=== PATIENT | female | born 1935 | race Caucasian/White ===

== ENCOUNTER 2018-04-20 11:43 | Inpatient (IN) ==
--- NOTE | 2018-04-20 12:05 | Emergency Department Note ---
SOB HPI - General Chief Complaint: Shortness of Breath/Dyspnea Stated Complaint: hypoxic Time Seen by Provider: 04/20/18 11:48 Source: patient, other Mode of arrival: wheelchair Limitations: physical limitation - History of Present Illness Patient is a recent new resident at [facility] after a fall with apparent fractures to her wrist and femur. Her left wrist was recently repaired. She has had increasing O2 requirements up to 6 L and heart rate going up to 120. Th erefore was sent to this emergency room. REVIEW OF SYSTEMS: Denies headache, chest pain, stomach pain. Unsure of why she fell days ago. No recent complaints of fevers, chest pain; has been chronically short of breath but seems to have worsened some. Has been using her inhalers fairly regularly as well. - Related Data Home Medications Medication Instructions Recorded Confirmed Acetaminophen [Tylenol Arthritis] 650 mg PO Q4H 04/20/18 04/20/18 Aspirin [Adult Aspirin] 81 mg PO DAILY 04/20/18 04/20/18 Beclomethasone Dipropionate [Qvar 1 puff INH BID 04/20/18 04/20/18 40] Bisacodyl [Dulcolax] 10 mg LA DAILYP PRN 04/20/18 04/20/18 Cyanocobalamin (Vitamin B-12) 5,000 mcg PO DAILY 04/20/18 04/20/18 [Vitamin B12] Cyanocobalamin/Folic Acid [Vitamin 1 each PO DAILY 04/20/18 04/20/18 [id number] Acid Tablet] Fish Oil 1,000 mg PO DAILY 04/20/18 04/20/18 Fish Oil/Borage/Flax/Om3,6,9#1 400 mg PO DAILY 04/20/18 04/20/18 [Triple [place] Complex 3-6-9] Flaxseed Oil [Flax Seed Oil] 1,000 mg PO DAILY 04/20/18 04/20/18 Furosemide [Lasix] 10 mg PO DAILY 04/20/18 04/20/18 Hydrocodone/APAP 7.5/325Mg [[place] 1 tab PO Q4HP PRN 04/20/18 04/20/18 7.5-325Mg] Ipratropium/Albuterol [Duoneb] 3 ml NEB TID 04/20/18 04/20/18 Levalbuterol Tartrate [Xopenex Hfa] 15 gm IH Q4HP PRN 04/20/18 04/20/18 Magnesium Hydroxide [Milk of 30 ml PO DAILYP PRN 04/20/18 04/20/18 Magnesia] Multivit-Min/Iron/Folic/Muy059 1 each PO DAILY 04/20/18 04/20/18 [Hair, Skin and Nails Tablet] Na Phos,M-B/Na Phos,Di-Ba [Fleets 1 dose LA DAILYP PRN 04/20/18 04/20/18 Adult] Spironolactone [Aldactone] 25 mg PO DAILY 04/20/18 04/20/18 Ubidecarenone [Coenzyme Q10] 100 mg PO DAILY 04/20/18 04/20/18 Allergies Allergy/AdvReac Type Severity Reaction Status Date / Time Amfxlob-Uxi-Fxj Reductase AdvReac Severe Pt does Verified 04/20/18 11:51 Inhibitor not recall. Iron sucrose Allergy Severe Patient Uncoded 03/04/18 14:10 states reaction caused syncope, loss of bladder. Past Medical History - Past Medical History PMF Narrative: Medical History (Last Reviewed 03/04/18 @ 14:48 by Avel Portillo MD) Hypoxemia (Chronic) Cyst of thyroid (Chronic) Cervical disc herniation (Chronic) Shortness of Breath (Chronic) Malocclusion of teeth (Chronic) Neck pain (Chronic) Memory loss (Chronic) CKD (chronic kidney disease), stage III (Chronic) Angiodysplasia of duodenum (Chronic) Nasal septal erosion (Chronic) Hyperkalemia (Chronic) COPD exacerbation (Resolved) Right lower lobe pneumonia (Chronic) Venous stasis dermatitis of both lower extremities (Chronic) Chronic kidney disease, stage II (mild) (Chronic) Noncompliance with medication regimen (Chronic) Peripheral Vascular Disease (Chronic) History of colorectal malignant neoplasm (Chronic) Gastritis and duodenitis (Chronic) Altered mental status (Resolved) Fundic gland polyps of stomach, benign (Resolved) Rectal mass (Chronic) History of ovarian cancer (Chronic) History of malignant neoplasm of colon (Chronic) Abdominal pain (Chronic) History of hysterectomy (Resolved) Vitamin B12 deficiency (Chronic) 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) Tachycardia (Chronic 01/25/13) Sepsis (Resolved 01/13/13) Scoliosis (Chronic) Respiratory failure (Resolved) Pneumonia, organism unspecified (Resolved 01/13/13) Ovarian cancer (Inactive) Osteoporosis (Chronic) Chronic sinusitis (Chronic 01/20/13) Lung mass (Inactive) Atrophy of calf muscles on left (Chronic 03/21/14) Hypoxia (Chronic) Hypertension, essential (Chronic) Hyperlipidemia (Chronic 09/10/12) Herpes zoster (Resolved) Abrasion of ankle (Resolved 11/16/13) GERD (gastroesophageal reflux disease) (Chronic) Type 2 diabetes mellitus (Chronic) Depressive disorder (Chronic) Colon cancer (Inactive) Chronic pain (Chronic) Chronic obstructive pulmonary disease (Chronic) Chronic kidney disease, stage II (mild) (Chronic) Chest pain (Chronic) Cheilitis (Resolved) Carotid stenosis (Chronic) Carotid bruit (Chronic) Bronchitis (Chronic 01/20/13) Back pain (Chronic) Atherosclerosis, generalized (Chronic) Anemia, iron deficiency (Chronic) Past Surgical History (Last Reviewed 03/04/18 @ 14:48 by Avel Portillo MD) History of salpingoophorectomy (Resolved) History of esophagogastroduodenoscopy (Resolved) History of colonoscopy (Resolved) History of colon surgery (Resolved) History of cholecystectomy (Resolved) History of cataract surgery (Resolved) History of appendectomy (Resolved) Status post surgical manipulation of ankle joint (Resolved) Family History (Last Reviewed 03/04/18 @ 14:48 by Avel Portillo MD) Brother Chronic obstructive pulmonary disease Type 2 diabetes mellitus Cardiac disease Mother Type 2 diabetes mellitus Family history of malignant neoplasm Osteoporosis Sister Family history of malignant neoplasm Disease of lung Father Cardiac disease Pneumocephalus Unknown Acute myocardial infarction Medical history: Reports: COPD, DM, GERD, hyperlipidemia, hypertension, osteoporosis, renal disease, other Surgical history ED: Reports: appendectomy, cataract, cholecystectomy, hysterectomy - Social History smoking status: Former smoker Physical Exam Limitations: physical limitation General appearance: alert, cachectic (Moderately to mildly), in distress (Some work of breathing and few word dyspnea.) Head: atraumatic, normocephalic, other (Bruising and swelling on the left zygoma) Eye: Present: EOMI Neck: Present: trachea midline. Absent: lymphadenopathy, thyromegaly Respiratory: Present: rales/crackles (Some coarseness and palpable wheezes.), accessory muscle use (Mildly), prolonged expiratory phase (Mildly) Cardiovascular: Present: tachycardia, irregular rhythm. Absent: systolic murmur, diastolic murmur Abdominal: Present: soft. Absent: distention, tenderness, guarding, rebound, rigidity, organomegaly, mass Extremities: Present: other (Multiple ecchymotic areas. Left arm is in a splint with Arnoldo wraps.). Absent: pedal edema, pretibial edema, calf tenderness Neurological: Present: alert, CN II-XII intact Psychiatric: Present: flat affect, serious Skin: Present: dry Course Vital Signs Temperature 101.7 F H 04/20/18 11:44 Pulse Rate 124 H 04/20/18 11:44 Respiratory Rate 28 H 04/20/18 11:44 Blood Pressure 120/57 04/20/18 11:44 Pulse Oximetry (%) 78 L 04/20/18 11:44 Temperature 101.7 F H 04/20/18 14:19 Pulse Rate 127 H 04/20/18 14:19 Respiratory Rate 21 04/20/18 14:19 Blood Pressure 119/66 04/20/18 14:19 Pulse Oximetry (%) 89 L 04/20/18 14:19 Shortness of Breath/Dyspnea - [facility] Narrative Medical decision making narrative: 11:56 AM - acute worsening of shortness of breath and hypoxia with tachycardia and had a temperature on admission of 101.7. Full workup for sepsis and hypoxia. 12:15 PM - patient's EKG demonstrates tachycardia with some mildly flattened T waves compared to previous. Patient initially tried on high flow mask but saturations continued to drop into the 80s. 1 PM approximately - d-dimer was needing to be repeated. In thinking about this a consider going ahead and order the CT angios of the chest has recent surgery certainly puts her at significant risk for DVT. 1:10 PM approximately - radiology points out the patient had a CT of her chest on the at [facility]. I will hold on the CT Angio pending greater respiratory stabilization and consider discussing with hospitalist. 1:15 PM - high flow nasal cannula humidified "THRIVE" encouraged by respiratory. This seems feasible and is ordered. 1:50 PM - spoke with family and patient. She does not want to be intubated for any significant period of time or spend the rest of her life on a respirator. She does not want aggressive measures such as CPR. However would like to have medical interventions. Patient's son seems to confirm this. 2:00 PM - limited benefit with above. Saturations were dropping still into the 86-88% range. We will try BiPAP. 2:04 PM - I spoke with hospitalist who kindly agrees to accept this patient for inpatient additional treatment and interventions. - Lab Data Result diagrams: 04/20/18 12:26 04/20/18 12:26 Lab Results 04/20/18 04/20/18 04/20/18 Range/Units 12:26 12: 12: WBC 23.7 H (4.5-11.0) K/mcL RBC 2.97 L (4.00-5.20) M/mcL Hgb 9.2 L (12.0-15.0) g/dL Hct 27.7 L (36.0-48.0) % MCV 93.3 (80.0-100.0) fL MCH 31.0 (26.0-34.0) pg MCHC 33.3 (31.0-36.0) g/dL RDW 13.2 (11.5-14.5) % Plt Count 546 H (140-440) K/mcL MPV 7.0 L (7.4-10.4) fL Total Counted 100 Seg Neutrophils % 59 (38-78) % Band Neutrophils % 24 H (0-10) % Lymphocytes % 5 L (15-49) % Monocytes % (Manual) 5 (1-12) % Metamyelocytes % 4 H (0-0) % Myelocytes % 3 H (0-0) % WBC Morphology Abnorm A (NORMAL) Vacuolated Neuts 1+ A (NONE SEEN) Toxic Granulation 1+ A (NONE SEEN) Dohle Bodies Few A (NONE SEEN) Platelet Estimate Increased (NORMAL) RBC Morphology Abnorm A (NORMAL) Polychromasia 1+ A (NONE SEEN) Hypochromasia 1+ A (NONE SEEN) D-Dimer TNP VBG Lactic Acid (0.5-2.0) mmol/L Sodium 130 L (133-145) mmol/L Potassium 3.8 (3.3-5.1) mmol/L Chloride 86 L (96-108) mmol/L Carbon Dioxide 31 H (22-30) mmol/L Anion Gap 13.0 (8-16) BUN 23 (8-23) mg/dl Creatinine 1.0 (0.6-1.1) mg/dl GFR Calculation 52 Glucose 187 H (70-105) mg/dL Calcium 8.8 (8.6-10.4) mg/dl Total Bilirubin 0.6 (0.0-1.0) mg/dL AST 28 (0-37) U/l ALT 26 (0-40) U/l Alkaline Phosphatase 114 (39-117) U/L Total Protein 6.3 (5.9-8.4) gm/dL Albumin 2.6 L (3.2-5.2) gm/dL Globulin 3.7 (2.2-3.7) gm/dL Albumin/Globulin Ratio 0.7 L (1.0-2.3) 04/20/18 04/20/18 Range/Units 12:26 13:26 WBC (4.5-11.0) K/mcL RBC (4.00-5.20) M/mcL Hgb (12.0-15.0) g/dL Hct (36.0-48.0) % MCV (80.0-100.0) fL MCH (26.0-34.0) pg MCHC (31.0-36.0) g/dL RDW (11.5-14.5) % Plt Count (140-440) K/mcL MPV (7.4-10.4) fL Total Counted Seg Neutrophils % (38-78) % Band Neutrophils % (0-10) % Lymphocytes % (15-49) % Monocytes % (Manual) (1-12) % Metamyelocytes % (0-0) % Myelocytes % (0-0) % WBC Morphology (NORMAL) Vacuolated Neuts (NONE SEEN) Toxic Granulation (NONE SEEN) Dohle Bodies (NONE SEEN) Platelet Estimate (NORMAL) RBC Morphology (NORMAL) Polychromasia (NONE SEEN) Hypochromasia (NONE SEEN) D-Dimer 3.90 H VBG Lactic Acid 1.2 (0.5-2.0) mmol/L Sodium (133-145) mmol/L Potassium (3.3-5.1) mmol/L Chloride (96-108) mmol/L Carbon Dioxide (22-30) mmol/L Anion Gap (8-16) BUN (8-23) mg/dl Creatinine (0.6-1.1) mg/dl GFR Calculation Glucose (70-105) mg/dL Calcium (8.6-10.4) mg/dl Total Bilirubin (0.0-1.0) mg/dL AST (0-37) U/l ALT (0-40) U/l Alkaline Phosphatase (39-117) U/L Total Protein (5.9-8.4) gm/dL Albumin (3.2-5.2) gm/dL Globulin (2.2-3.7) gm/dL Albumin/Globulin Ratio (1.0-2.3) Disposition Pt seen by JOINER HELPER/PA only: No Clinical Impression: Hypoxia, S/P hip hemiarthroplasty, Pulmonary fibrosis, DNR (do not resuscitate) Respiratory failure with hypoxia Qualifiers: Chronicity: acute on chronic Qualified Code(s): J96.21 - Acute and chronic respiratory failure with hypoxia Facial bones, closed fracture Qualifiers: Encounter type: subsequent encounter Facial bone/location: unspecified site of maxillary bone Laterality: left Fracture healing: with routine healing Qualified Code(s): S02.40DD - Maxillary fracture, left side, subsequent encounter for fracture with routine healing Fracture of forearm, distal, left, closed Qualifiers: Encounter type: subsequent encounter Fracture healing: with routine healing Qualified Code(s): S52.92XD - Unspecified fracture of left forearm, subsequent encounter for closed fracture with routine healing Pneumonia Qualifiers: Pneumonia type: due to unspecified organism Laterality: bilateral Lung location: lower lobe of lung Qualified Code(s): J18.1 - Lobar pneumonia, unspecified organism Disposition: Xfer As Inpt ([facility]) Condition: Fair Referrals: Steven Pineda MD [Primary Care Provider] -
[2018-04-20] MEDS ORDERED: IPRATROPIUM/ALBUTEROL 3 ML AMPUL.NEB NEB ONE (12:39)
--- NOTE | 2018-04-20 12:49 | XRay Report ---
HISTORY: Hypoxia FINDINGS: There is moderate consolidation left lower lobe with milder consolidation in the right lower lobe. Superimposed upon this are small bilateral pleural effusions, left greater than right. The heart is relatively small. There is underlying pulmonary fibrosis with a reticular pattern to the lung parenchyma in both upper lobes. The infiltrates and pleural effusions are new since 02/06/17. IMPRESSION: Bibasilar pneumonia, left worse than right superimposed upon underlying pulmonary fibrosis Small bilateral pleural effusions Interpreted and Authenticated by: Santy Baker 04/20/18
[2018-04-20 13:00] LABS: Mean Cell Volume 93.3 fL (80.0-100.0); Mean Corpuscular HGB Conc 33.3 g/dL (31.0-36.0); Platelet Count 546 K/mcL (140-440); RBC 2.97 M/mcL (4.00-5.20); Red Cell Distribution Width 13.2 % (11.5-14.5)
[2018-04-20] MEDS ORDERED: cefTRIAXone 1 GM VIAL IV ONE (13:08)
[2018-04-20] MEDS ORDERED: AZITHROMYCIN 500 MG in DEXTROSE 5% IN WATER 250 ML IV ONE (13:09)
[2018-04-20 13:25] LABS: ALT/SGPT 26 U/l (0-40); Albumin 2.6 gm/dL (3.2-5.2); Albumin/Globulin Ratio 0.7 (1.0-2.3); Alkaline Phosphatase 114 U/L (39-117); Blood Urea Nitrogen 23 mg/dl (8-23)
[2018-04-20] MEDS ORDERED: 0.9 % SODIUM CHLORIDE 1,000 ML IV ONE (13:39)
[2018-04-20 13:41] LABS: Band Neutrophils % 24 % (0-10); Dohle Bodies FEW (NONE SEEN); Hypochromasia 1+ (NONE SEEN); Lymphocytes % 5 % (15-49); Metamyelocytes % 4 % (0-0); Monocytes % (Manual) 5 % (1-12); Myelocytes % 3 % (0-0); Platelet Estimate INCREASED (NORMAL); RBC Morphology ABNORM (NORMAL); Segmented Neutrophils % 59 % (38-78); Toxic Granulation 1+ (NONE SEEN)
[2018-04-20] MEDS ORDERED: LACTATED RINGERS 1,000 ML IV ONE ×3 (14:53→15:26)
--- NOTE | 2018-04-20 15:08 | Internal Med History&Physical ---
Medical - H&P: HPI Patient information: Note initiated : 04/20/18 at 3:03 pm Service Date, if different from initiated Date: [] Patient: Shari Rice 82 y/o F admitted on for hypoxic. Chief Complaint: [] History of present illness: Ms. Rice is a 82 year old F with history of pulmonary fibrosis, COPD presents to the hospital from a half-way for evaluation of shortness of breath. On my evaluation patient was on BiPAP, eating 100% oxygen to maintain her oxygen saturation more than 95%. She noted that she has not been feeling well for the last 3-4 days. Short of breath and cough. Unable to provide much history due to acuity of medical condition. History obtained from talking to family as well as chart review. The patient was admitted on 12 April at [facility] after a fall. The patient developed a maxillary fracture, radius ulna fracture and hip fracture. The patient hip fracture was fixed and the patient was discharged to half-way for further rehab. The hospital stay it seems was complicated with a pneumonia. Patient was discharged with p.o. levofloxacin. The patient condition probably worsened at the rehab center, this morning it was noted by the half-way staff that the patient was hypoxic needing more than 6 L of oxygen to keep her oxygen levels more than 90. Patient was therefore sent to the emergency room for further evaluation. The patient was also tachy cardic tachypneic and febrile. On presentation to the emergency room patient was febrile with a temperature of 101.7, tachycardic heart rate 122 blood pressure 115/61 tachypneic respiratory rate between 30-35 and saturating 87% despite being 100% FiO2 on a nonrebreather. Patient was subsequently placed on a BiPAP. Labs show a WBC count of 23,700 hemoglobin 9.2, 24% bands platelets 546 lactic acid 1.2 Sodium is 130 potassium is 3.8 bicarbonate is 31 creatinine is 1.0 glucose is 187. ABG shows pH of 7.52 PCO2 49 PO2 48 on a nonrebreather Chest x-ray shows bilateral pneumonia left greater than right bilateral effusion left greater than right underlying pulmonary fibrosis. EKG done shows sinus tachycardia nonspecific ST wave changes in the lateral leads and poor R wave progression Patient is being admitted to the ICU for further management, I have reviewed with the patient's family, her sons in the emergency room with regards to overall poor prognosis of this patient given the severity of illness. They verbalized understanding. They are okay with BiPAP, central line and pressors but did not want CPR or intubation. ROS unobtainable: due to mental status (acuity of medical condition) Medical - H&P: PMH Medical history: Medical History (Last Reviewed 03/04/18 @ 14:48 by Avel Portillo MD) Hypoxemia (Chronic) Cyst of thyroid (Chronic) Cervical disc herniation (Chronic) Shortness of Breath (Chronic) Malocclusion of teeth (Chronic) Neck pain (Chronic) Memory loss (Chronic) CKD (chronic kidney disease), stage III (Chronic) Angiodysplasia of duodenum (Chronic) Nasal septal erosion (Chronic) Hyperkalemia (Chronic) COPD exacerbation (Resolved) Right lower lobe pneumonia (Chronic) Venous stasis dermatitis of both lower extremities (Chronic) Chronic kidney disease, stage II (mild) (Chronic) Noncompliance with medication regimen (Chronic) Peripheral Vascular Disease (Chronic) History of colorectal malignant neoplasm (Chronic) Gastritis and duodenitis (Chronic) Altered mental status (Resolved) Fundic gland polyps of stomach, benign (Resolved) Rectal mass (Chronic) History of ovarian cancer (Chronic) History of malignant neoplasm of colon (Chronic) Abdominal pain (Chronic) History of hysterectomy (Resolved) Vitamin B12 deficiency (Chronic) 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) Tachycardia (Chronic 01/25/13) Sepsis (Resolved 01/13/13) Scoliosis (Chronic) Respiratory failure (Resolved) Pneumonia, organism unspecified (Resolved 01/13/13) Ovarian cancer (Inactive) Osteoporosis (Chronic) Chronic sinusitis (Chronic 01/20/13) Lung mass (Inactive) Atrophy of calf muscles on left (Chronic 03/21/14) Hypoxia (Chronic) Hypertension, essential (Chronic) Hyperlipidemia (Chronic 09/10/12) Herpes zoster (Resolved) Abrasion of ankle (Resolved 11/16/13) GERD (gastroesophageal reflux disease) (Chronic) Type 2 diabetes mellitus (Chronic) Depressive disorder (Chronic) Colon cancer (Inactive) Chronic pain (Chronic) Chronic obstructive pulmonary disease (Chronic) Chronic kidney disease, stage II (mild) (Chronic) Chest pain (Chronic) Cheilitis (Resolved) Carotid stenosis (Chronic) Carotid bruit (Chronic) Bronchitis (Chronic 01/20/13) Back pain (Chronic) Atherosclerosis, generalized (Chronic) Anemia, iron deficiency (Chronic) Surgical history: Past Surgical History (Last Reviewed 03/04/18 @ 14:48 by Avel Portillo MD) History of salpingoophorectomy (Resolved) History of esophagogastroduodenoscopy (Resolved) History of colonoscopy (Resolved) History of colon surgery (Resolved) History of cholecystectomy (Resolved) History of cataract surgery (Resolved) History of appendectomy (Resolved) Status post surgical manipulation of ankle joint (Resolved) Pertinent family history: Family History (Last Reviewed 03/04/18 @ 14:48 by Avel Portillo MD) Brother Chronic obstructive pulmonary disease Type 2 diabetes mellitus Cardiac disease Mother Type 2 diabetes mellitus Family history of malignant neoplasm Osteoporosis Sister Family history of malignant neoplasm Disease of lung Father Cardiac disease Pneumocephalus Unknown Acute myocardial infarction Medical - H&P: Meds Home Medications Medication Instructions Recorded Confirmed Type Acetaminophen [Tylenol Arthritis] 650 mg PO Q4H 04/20/18 04/20/18 History Aspirin [Adult Aspirin] 81 mg PO DAILY 04/20/18 04/20/18 History Beclomethasone Dipropionate [Qvar 1 puff INH BID 04/20/18 04/20/18 History 40] Bisacodyl [Dulcolax] 10 mg AL DAILYP PRN 04/20/18 04/20/18 History Cyanocobalamin (Vitamin B-12) 5,000 mcg PO DAILY 04/20/18 04/20/18 History [Vitamin B12] Cyanocobalamin/Folic Acid [Vitamin 1 each PO DAILY 04/20/18 04/20/18 History O12-Yqidr Acid Tablet] Fish Oil 1,000 mg PO DAILY 04/20/18 04/20/18 History Fish Oil/Borage/Flax/Om3,6,9#1 400 mg PO DAILY 04/20/18 04/20/18 History [Triple [place] Complex 3-6-9] Flaxseed Oil [Flax Seed Oil] 1,000 mg PO DAILY 04/20/18 04/20/18 History Furosemide [Lasix] 10 mg PO DAILY 04/20/18 04/20/18 History Hydrocodone/APAP 7.5/325Mg [[place] 1 tab PO Q4HP PRN 04/20/18 04/20/18 History 7.5-325Mg] Ipratropium/Albuterol [Duoneb] 3 ml NEB TID 04/20/18 04/20/18 History Levalbuterol Tartrate [Xopenex Hfa] 15 gm IH Q4HP PRN 04/20/18 04/20/18 History Magnesium Hydroxide [Milk of 30 ml PO DAILYP PRN 04/20/18 04/20/18 History Magnesia] Multivit-Min/Iron/Folic/Rid295 1 each PO DAILY 04/20/18 04/20/18 History [Hair, Skin and Nails Tablet] Na Phos,M-B/Na Phos,Di-Ba [Fleets 1 dose AL DAILYP PRN 04/20/18 04/20/18 History Adult] Spironolactone [Aldactone] 25 mg PO DAILY 04/20/18 04/20/18 History Ubidecarenone [Coenzyme Q10] 100 mg PO DAILY 04/20/18 04/20/18 History Allergies Allergy/AdvReac Type Severity Reaction Status Date / Time Ygucrsn-Gog-Tnq Reductase AdvReac Severe Pt does Verified 04/20/18 11:51 Inhibitor not recall. Iron sucrose Allergy Severe Patient Uncoded 03/04/18 14:10 states reaction caused syncope, loss of bladder. Medical - H&P: Exam - Constitutional Vitals: Temp Pulse Resp BP Pulse Ox 101.5 F H 122 H 22 116/61 97 04/20/18 15:00 04/20/18 15:00 04/20/18 15:00 04/20/18 15:00 04/20/18 15:00 Exam: GENERAL: The patient is a well-developed, thin and a frail lady. She is in moderate respiratory distress, alert oriented x2-3 VITAL SIGNS: Reviewed and as noted elsewhere. HEENT: Head is normocephalic and atraumatic. Extraocular muscles are intact. Pupils are equal, round, and reactive to light. Nares appeared normal. Mouth appears any without lesions. Mucous membranes are dry. NECK: Normal to inspection, Supple, No lymphadenopathy or thyromegaly. LUNGS: Air entry equal on both sides, decreased air entry bilaterally, prolonged expiratory phase, patient on BiPAP, accessory muscle use noted HEART: Tachycardic rate rate and rhythm normal, S1 and S2 heard, no Gallop, S3 or Rub Noted, No Gross murmur heard. Distant heart sounds ABDOMEN: Soft, nontender, and nondistended. Positive bowel sounds. No hepatosplenomegaly was noted. EXTREMITIES: No cyanosis, clubbing, rash, lesions or edema. NEUROLOGIC: Cranial nerves II through XII are grossly intact. Motor and Sensory System Grossly Intact PSYCHIATRIC: Normal affect, Normal Mood. Appropriate Behavior. SKIN: No ulceration or wounds noted, No jaundice, No rash noted. Medical - H&P: Reslt - Labs CBC & Chem 7: 04/20/18 12:26 04/20/18 12:26 Labs: Short CBC 04/20/18 Range/Units 12:26 WBC 23.7 H (4.5-11.0) K/mcL Hgb 9.2 L (12.0-15.0) g/dL Hct 27.7 L (36.0-48.0) % Plt Count 546 H (140-440) K/mcL BMP 04/20/18 12:26 Sodium 130 L Potassium 3.8 Chloride 86 L Carbon Dioxide 31 H BUN 23 Creatinine 1.0 Glucose 187 H Calcium 8.8 Liver Function 04/20/18 Range/Units 12:26 Total Bilirubin 0.6 (0.0-1.0) mg/dL AST 28 (0-37) U/l ALT 26 (0-40) U/l Alkaline Phosphatase 114 (39-117) U/L Albumin 2.6 L (3.2-5.2) gm/dL Medical - H&P: A/P - Narrative A/P Narrative: A/P Acute on Chronic Respiratory failure -at baseline on 3L oxygen, now on bipap needing 100% fio2, continue bipap support, wean off bipap as tolerated. -CTA has been ordered in ER Health care associated pna - due to pna, health care assoicated, also has pulmonary fibrosis, IV vanco and zosyn to be started, blood cultures sent, send sputum cultures. Pleural effusion -bilateral, due to pna, will get more information after CT, if loculated will try to obtain thoracocentesis. Sepsis -BP is holding up, but give 2 L LR bolus for fluid resusitation, Keep MAP > 65 CKD -stable renal function. Monitor acute exacerbation of COPD/Pulmonary fibrosis - on 3 L oxygen at baseline -start on IV steroids for now. Anemia of chronic Disease - monitor Hb Multiple fractures - pain management and rehab. DNR code status PPI/Hep sq for GI and DVT prophylaxis Regular diet as tolerated CONFEDER[place] SALISH 2 Score of 24, predicted mortality of 40%. Spent > 60 mins of critical care time, stabilizing patient, non invasive vent management, chart review, care coordination. Social History - Social History household members: alone housing: house lives independently: No marital status: other: 4 Children, 2 with retinitis pigmentosa - Tobacco smoking status: Former smoker - Quit Details quit date: 03/31/82 pack-years: 30 - Alcohol alcohol intake frequency: does not drink - Substance use substance use type: does not use
[2018-04-20 15:13] LABS: Appearance,Urine TURBID; Bacteria,Urine 0 /hpf (0); Bilirubin,Urine NEG (NEG); Color,Urine YELLOW; Glucose,Urine (UA) NEGATIVE (NEG); Leukocyte Esterase,Urine 250 /uL (NEG); Mucus,Urine FEW /hpf (0); Protein,Urine >=500 mg/dL (NEG); Specific Gravity,Urine 1.013 (1.000-1.035); Urine Amorphous Crystals FEW /hpf (0); Urine Blood 0.03 mg/dL (<0.03); Urine Budding Yeast FEW /hpf (0); Urine Hyaline Cast 21 /lpf (0-2); Urine RBC > 182 /hpf (0-1); Urine Squamous Epithelial Cell 0 /hpf (0-4); Urine WBC > 182 /hpf (0-4); Urobilinogen,Urine NEG (NEG)
[2018-04-20] MEDS ORDERED: methylPREDNISolone SOD SUCC 125 MG/2 ML VIAL IV ONE ×2 (15:15→15:26)
[2018-04-20] MEDS ORDERED: ACETAMINOPHEN 325 MG TABLET PO PRN (15:26)
[2018-04-20] MEDS ORDERED: VANCOMYCIN 1,000 MG in 0.9 % SODIUM CHLORIDE 250 ML IV ONE ×2 (15:26→16:00)
[2018-04-20] MEDS ORDERED: NALOXONE HCL 0.4 MG/ML VIAL IV PRN (15:26)
[2018-04-20] MEDS ORDERED: NOREPINEPHRINE BITARTRATE 16 MG in 0.9 % SODIUM CHLORIDE 234 ML IV PRN (15:26)
[2018-04-20] MEDS ORDERED: ONDANSETRON 4 MG/2 ML VIAL IV PRN (15:26)
[2018-04-20] MEDS ORDERED: VANCOMYCIN PER PHARMACY IV SCH (15:26)
[2018-04-20] MEDS ORDERED: PIPERACILLIN SODIUM/TAZOBACTAM 3.375 GM in DEXTROSE 5% IN WATER 50 ML IV ONE ×2 (15:26→15:30)
[2018-04-20] MEDS: IPRATROPIUM/ALBUTEROL 3 ML AMPUL.NEB NEB SCH ×3 (15:37→23:34)
[2018-04-20] MEDS ORDERED: OSELTAMIVIR PHOSPHATE 75 MG CAPSULE PO SCH (15:40)
[2018-04-20] MEDS ORDERED: 0.9 % SODIUM CHLORIDE 10 ML SYRINGE IV PRN (16:51)
[2018-04-20] MEDS: OSELTAMIVIR PHOSPHATE 6 MG/ML BOTTLE PO SCH (17:45)
[2018-04-20] MEDS: PIPERACILLIN SODIUM/TAZOBACTAM 2.25 GM in DEXTROSE 5% IN WATER 50 ML IV SCH (20:45)
[2018-04-20] MEDS ORDERED: HEPARIN 5,000 UNIT/ML VIAL SQ SCH (21:00)
[2018-04-20] MEDS: 0.9 % SODIUM CHLORIDE 10 ML SYRINGE IV SCH ×2 (21:45)
[2018-04-20] MEDS: methylPREDNISolone SOD SUCC 125 MG/2 ML VIAL IV SCH (21:46)
[2018-04-20] MEDS: BECLOMETHASONE DIPROPIONATE 40MCG INHALER INH SCH (21:47)
[2018-04-20] MEDS: HYDROCODONE/APAP 7.5/325MG TABLET PO PRN (23:12)
[2018-04-20] MEDS ORDERED: OLANZapine 10 MG VIAL IM PRN (23:26)
[2018-04-20] MEDS ORDERED: OLANZapine 10 MG VIAL IM ONE (23:34)
[2018-04-21] MEDS: PIPERACILLIN SODIUM/TAZOBACTAM 2.25 GM in DEXTROSE 5% IN WATER 50 ML IV SCH ×4 (00:55→17:27)
[2018-04-21] MEDS: IPRATROPIUM/ALBUTEROL 3 ML AMPUL.NEB NEB SCH ×6 (02:52→23:00)
[2018-04-21] MEDS: methylPREDNISolone SOD SUCC 125 MG/2 ML VIAL IV SCH ×2 (05:15→20:11)
[2018-04-21] MEDS: 0.9 % SODIUM CHLORIDE 10 ML SYRINGE IV SCH ×7 (05:16→20:20)
[2018-04-21 06:36] LABS: Basophils # (Auto) 0 K/mcL (0.0-0.3); Basophils % (Auto) 0.1 % (0.0-2.0); Eosinophils # (Auto) 0 K/mcL (0.0-0.7); Eosinophils % (Auto) 0 % (0.0-7.0); Granulocytes % (Auto) 98.4 % (38.0-78.0); Lymphocytes # (Auto) 0.3 K/mcL (1.5-4.8); Lymphocytes % (Auto) 1.1 % (15.5-49.0); Mean Cell Volume 95.3 fL (80.0-100.0); Mean Corpuscular HGB Conc 32.4 g/dL (31.0-36.0); Monocytes # (Auto) 0.1 K/mcL (0.1-0.9); Monocytes % (Auto) 0.4 % (1.0-12.0); Platelet Count 532 K/mcL (140-440); RBC 2.81 M/mcL (4.00-5.20); Red Cell Distribution Width 13.6 % (11.5-14.5)
[2018-04-21 07:14] LABS: ALT/SGPT 25 U/l (0-40); Albumin 2.7 gm/dL (3.2-5.2); Albumin/Globulin Ratio 0.8 (1.0-2.3); Alkaline Phosphatase 118 U/L (39-117); Bilirubin,Direct < 0.2 mg/dL (0.0-0.3); Blood Urea Nitrogen 22 mg/dl (8-23); Gamma Glutamyl Transpeptidase 27 U/L (5-36); Uric Acid 4.7 mg/dL (2.5-8.0)
[2018-04-21] MEDS: PANTOPRAZOLE 40 MG VIAL IV SCH (08:04)
[2018-04-21] MEDS: VANCOMYCIN 1,000 MG in 0.9 % SODIUM CHLORIDE 250 ML IV SCH (08:54)
[2018-04-21] MEDS ORDERED: ENOXAPARIN 40 MG/0.4 ML SYRINGE SQ SCH (09:00)
[2018-04-21] MEDS: OSELTAMIVIR PHOSPHATE 6 MG/ML BOTTLE PO SCH ×3 (09:00→20:12)
[2018-04-21] MEDS ORDERED: ASPIRIN 81 MG TAB.CHEW PO SCH (09:00)
--- NOTE | 2018-04-21 09:39 | XRay Report ---
HISTORY: Follow-up pneumonia FINDINGS: There is dense consolidation of the basilar segments in the left lower lobe. There are diffuse interstitial infiltrates bilaterally with greatest involvement around the left hilum. This may be a combination of interstitial inflammation and underlying pulmonary fibrosis. There is a superimposed small left-sided pleural effusion. The infiltrate in the right lower lobe has improved since 04/20/18. There has been no change in the left side. Heart size is normal. Pulmonary vessels cannot be evaluated due to the parenchymal disease. Right lung is hyperinflated which suggests the patient has underlying COPD. IMPRESSION: Persistent bilateral pneumonia left worse than right with mild improvement in the right lower lobe. Stable small left-sided pleural effusion Interpreted and Authenticated by: Santy Baker 04/21/18
[2018-04-21] MEDS: CYANOCOBALAMIN 5000 MCG PO SCH (09:47)
[2018-04-21] MEDS: BECLOMETHASONE DIPROPIONATE 40MCG INHALER INH SCH ×2 (10:05→20:18)
--- NOTE | 2018-04-21 12:32 | Internal Med Progress Note ---
Medical - PN: Subj Patient information: Note initiated : 04/21/18 at 12:28 pm Service Date, if different from initiated Date: [] Patient: Shari Rice 82 y/o F admitted on 04/20/18 for hypoxic. Chief Complaint: [] Interval history: freddy Rice is a 82 year old F with history of pulmonary fibrosis, COPD presents to the hospital from a longterm for evaluation of shortness of breath. On my evaluation patient was on BiPAP, eating 100% oxygen to maintain her oxygen saturation more than 95%. She noted that she has not been feeling well for the last 3-4 days. Short of breath and cough. Unable to provide much history due to acuity of medical condition. History obtained from talking to family as well as chart review. The patient was admitted on 12 April at [facility] after a fall. The patient developed a maxillary fracture, radius ulna fracture and hip fracture. The patient hip fracture was fixed and the patient was discharged to longterm for further rehab. The hospital stay it seems was complicated with a pneumonia. Patient was discharged with p.o. levofloxacin. The patient condition probably worsened at the rehab center, this morning it was noted by the longterm staff that the patient was hypoxic needing more than 6 L of oxygen to keep her oxygen levels more than 90. Patient was therefore sent to the emergency room for further evaluation. The patient was also tachyca rdic tachypneic and febrile. On presentation to the emergency room patient was febrile with a temperature of 101.7, tachycardic heart rate 122 blood pressure 115/61 tachypneic respiratory rate between 30-35 and saturating 87% despite being 100% FiO2 on a nonrebreather. Patient was subsequently placed on a BiPAP. Labs show a WBC count of 23,700 hemoglobin 9.2, 24% bands platelets 546 lactic acid 1.2 Sodium is 130 potassium is 3.8 bicarbonate is 31 creatinine is 1.0 glucose is 187. ABG shows pH of 7.52 PCO2 49 PO2 48 on a nonrebreather Chest x-ray shows bilateral pneumonia left greater than right bilateral effusion left greater than right underlying pulmonary fibrosis. EKG done shows sinus tachycardia nonspecific ST wave changes in the lateral leads and poor R wave progression Patient is being admitted to the ICU for further management, I have reviewed with the patient's family, her sons in the emergency room with regards to overall poor prognosis of this patient given the severity of illness. They verbalized understanding. They are okay with BiPAP, central line and pressors but did not want CPR or intubation. 04/21 Patient seen examined, no acute overnight issues, pt still on bipap this AM, but did not want to be on it, we have placed her on hiflo oxygen. X ray shows persistent left pleural effusion and pneumonia. CTA planned by ER was not done, started pt on therapeutic anticoagulation She needs thoracocentesis for further evaluation of left pleural effusion She also has poor iv access, unable to place picc, will need central line. Initially she was refusing care this am, wanting to talk with her family, after a discussion with family she did agree, patient remains critically ill.Flu is neg, but given high prevelance will complete course for 5 days. Pertinent ROS: Denies headache, dizziness Denies chest pain, palpitations cough and shortness of breath present. Denies abdominal pain, nausea or vomiting. - Constitutional Vitals: Vital Signs Temp Pulse Resp BP Pulse Ox 98.7 F 101 H 17 117/54 92 04/21/18 12:06 04/21/18 12:06 04/21/18 12:06 04/21/18 12:01 04/21/18 12:06 Period Temp Pulse Resp BP Sys/Marcus Pulse Ox Last 24 Hr 96.5 F-101.7 F 91-129 12-44 92-147/47-101 80-100 Intake and Output 04/20/18 04/21/18 04/21/18 21:59 05:59 13:59 Intake Total 1800 100 250 Output Total 685 350 223 Balance 1115 -250 27 Weight 92 lb 3.2 oz Intake & Output: Intake & Output 04/20/18 04/21/18 04/21/18 21:59 05:59 13:59 Intake Total 1800 100 250 Output Total 685 350 223 Balance 1115 -250 27 Weight 92 lb 3.2 oz Intake: IV 1800 100 250 Sodium Chloride 0.9% 1,000 ml @ 200 Wide Open IV BOLUS ONE Rx#: [id number] Zithromax 500 mg In Dextrose 5% 250 in Water 250 ml @ 250 mls/hr IV ONCE ONE Rx#:[id number] Lactated Ringers 1,000 ml @ 1000 Wide Open IV BOLUS ONE Rx#: [id number] Zosyn 2.25 gm In Dextrose 5% in 50 100 Water 50 ml @ 100 mls/hr IV Q6H COUNT INCLUDES THE [facility] Rx#:[id number] Vancomycin 1,000 mg In Sodium 250 Chloride 0.9% 250 ml @ 250 mls/ hr IV Q24H COUNT INCLUDES THE [facility] Rx#:[id number] Output: Urine Catheter Amount 685 350 223 Other: Urine Appearance Clear Clear Sediment Hematuria Uretheral (Coulter) Cloudy Sediment Urine Color Straw Straw Light Mel Uretheral (Coulter) Light Mel Light Mel Stool Size Small Stool Color Brown Stool Consistency Soft # of times incontinent of 1 Bowels Exam: Constitutional; Afebrile, cooperative, alert, not in distress. thin frail woman, Eyes- No icterus, , No periorbital swelling Ears- Ext ear normal, hearing normal to conversation. Neck- Midline trachea, supple Respiratory system: Air Entry decreased left base, stuart basilar crackles, CVS- Rate tachycardic regular, S1,S2 heard, no gallop, no rub. Abdomen- Soft nontender abdomen, no organomegaly, no tenderness, no guarding or rigidity, CONSTRUCTION GRIP- AOOx3, moving all extremities, no gross focal deficit noted. Medical - PN: Obj Da - Labs CBC & Chem 7: 04/21/18 04:00 04/21/18 04:00 Labs: Abnormal Lab Results 04/21/18 04/21/18 04/20/18 04:00 04:00 14:10 WBC 26.4 H RBC 2.81 L Hgb 8.7 L Hct 26.7 L Plt Count 532 H MPV Gran % 98.4 H Lymph % (Auto) 1.[address] % (Auto) 0.4 L Gran # 26.0 H Lymph # (Auto) 0.3 L Band Neutrophils % Lymphocytes % Metamyelocytes % Myelocytes % WBC Morphology Vacuolated Neuts Toxic Granulation Dohle Bodies RBC Morphology Polychromasia Hypochromasia D-Dimer Sodium Chloride 91 L Carbon Dioxide 32 H Glucose 219 H Phosphorus 4.8 H Alkaline Phosphatase 118 H Lactate Dehydrogenase 403 H Albumin 2.7 L Albumin/Globulin Ratio 0.8 L Urine Protein >=500 A Urine Occult Blood 0.03 A Urine Nitrate Pos A Ur Leukocyte Esterase 250 A Urine RBC > 182 H Urine WBC > 182 H Amorphous Crystals Few A Hyaline Casts 21 H Urine Yeast (Budding) Few A 04/20/18 04/20/18 04/20/18 13:26 12:26 12:26 WBC 23.7 H RBC 2.97 L Hgb 9.2 L Hct 27.7 L Plt Count 546 H MPV 7.0 L Gran % Lymph % (Auto) [place] % (Auto) Gran # Lymph # (Auto) Band Neutrophils % 24 H Lymphocytes % 5 L Metamyelocytes % 4 H Myelocytes % 3 H WBC Morphology Abnorm A Vacuolated Neuts 1+ A Toxic Granulation 1+ A Dohle Bodies Few A RBC Morphology Abnorm A Polychromasia 1+ A Hypochromasia 1+ A D-Dimer 3.90 H Sodium 130 L Chloride 86 L Carbon Dioxide 31 H Glucose 187 H Phosphorus Alkaline Phosphatase Lactate Dehydrogenase Albumin 2.6 L Albumin/Globulin Ratio 0.7 L Urine Protein Urine Occult Blood Urine Nitrate Ur Leukocyte Esterase Urine RBC Urine WBC Amorphous Crystals Hyaline Casts Urine Yeast (Budding) Meds: Medications Acetaminophen (Tylenol) 650 mg PO Q4-6HP PRN PRN Reason: PAIN/FEVER > 101 Hydrocodone Bitart/Acetaminophen ([place] 7.5/325mg) 1 tab PO Q4HP PRN PRN Reason: Pain Last Admin: 04/20/18 23:12 Dose: 1 tab Documented by: Albuterol/Ipratropium (Duoneb) 3 ml NEB Q4HRT COUNT INCLUDES THE [facility] Last Admin: 04/21/18 11:46 Dose: 3 ml Documented by: Aspirin (Aspirin) 81 mg PO DAILY COUNT INCLUDES THE [facility] Last Admin: 04/21/18 09:47 Dose: 81 mg Documented by: Beclomethasone Dipropionate (Qvar 40) 1 puff INH BID COUNT INCLUDES THE [facility] Last Admin: 04/21/18 10:05 Dose: Not Given Documented by: Enoxaparin Sodium (Lovenox) 40 mg SQ DAILY COUNT INCLUDES THE [facility] Last Admin: 04/21/18 09:01 Dose: 40 mg Documented by: Norepinephrine Bitartrate 16 (mg/ Sodium Chloride) 250 mls @ 9.38 mls/hr IV Q24HP PRN; Protocol PRN Reason: Hypotension Piperacillin Sod/Tazobactam (Sod 2.25 gm/ Dextrose) 50 mls @ 100 mls/hr IV Q6H COUNT INCLUDES THE [facility] Last Admin: 04/21/18 11:56 Dose: 100 mls/hr Documented by: Vancomycin HCl 1,000 mg/ (Sodium Chloride) 250 mls @ 250 mls/hr IV Q24H COUNT INCLUDES THE [facility] Last Infusion: 04/21/18 10:15 Dose: Infused Documented by: Methylprednisolone Sodium Succinate (Solu-Medrol) 62.5 mg IV Q8 COUNT INCLUDES THE [facility] Last Admin: 04/21/18 05:15 Dose: 62.5 mg Documented by: Naloxone HCl (Narcan) 0.1 mg IV Q2MIN PRN PRN Reason: Opiate Reversal Olanzapine (Zyprexa) 5 mg IM Q2HP PRN PRN Reason: Anxiety Ondansetron HCl (Zofran) 4 mg IV Q4-6HP PRN PRN Reason: Nausea And Vomiting Oseltamivir Phosphate (Oseltamivir Phosphate) 30 mg PO BID COUNT INCLUDES THE [facility] Last Admin: 04/21/18 09:47 Dose: 30 mg Documented by: Pantoprazole Sodium (Protonix) 40 mg IV QAMAC COUNT INCLUDES THE [facility] Last Admin: 04/21/18 08:04 Dose: 40 mg Documented by: Cyanocobalamin [ Vitamin B12] 5,000 Mcg Tab 1 dose PO DAILY COUNT INCLUDES THE [facility] Last Admin: 04/21/18 09:47 Dose: Not Given Documented by: Sodium Chloride (Saline Flush) 10 ml IV Q8 COUNT INCLUDES THE [facility] Last Admin: 04/21/18 09:20 Dose: 10 ml Documented by: Sodium Chloride (Saline Flush) 10 ml IV UD PRN PRN Reason: FLUSH Sodium Chloride (Saline Flush) 10 ml IV Q12 COUNT INCLUDES THE [facility] Last Admin: 04/21/18 09:25 Dose: Not Given Documented by: Vancomycin HCl (Vancomycin Per Pharmacy) 1 order IV UD COUNT INCLUDES THE [facility] Last Admin: 04/20/18 16:32 Dose: Not Given Documented by: Medical - PN: A/P - Time Spent With Patient Total time spent is greater than 50% in coordination of care (as documented) at patient's floor/unit and/or counseling patient: - Narrative A/P Narrative: A/P Acute on Chronic Respiratory failure -at baseline on 3L oxygen, needs prn bipap, on higflow nasal canula -CTA has been ordered in ER, but was not done, given elevated d dmier, will start on lovenox, no good IV access to get CTA at this time. Will try to get central line, and then get CTA Health care associated pna - due to pna, health care assoicated, also has pulmonary fibrosis, IV vanco and zosyn to be started, blood cultures sent, send sputum cultures. Pleural effusion -bilateral, due to pna, left > right, it has remained, get thoracocentesis. Sepsis -BP is holding up, but give 2 L LR bolus for fluid resuscitation, Keep MAP > 65 CKD -stable renal function. Monitor acute exacerbation of COPD/Pulmonary fibrosis - on 3 L oxygen at baseline -started on IV steroids for now.plan to wean down rapidly, continue bronchodilators. Anemia of chronic Disease - monitor Hb Multiple fractures - pain management and rehab. DNR code status PPI/Hep sq for GI and DVT prophylaxis Regular diet as tolerated [place] 2 Score of 24, predicted mortality of 40%. Spent > 70 mins of critical care time, stabilizing patient, non invasive vent management, chart review, care coordination. Medical - PN: Qual - VTE Deep Vein Thrombosis/Pulmonary Embolism Present on Admission: No
[2018-04-21] MEDS ORDERED: OLANZapine 10 MG VIAL IM PRN (13:16)
[2018-04-21] MEDS: LORazepam 2 MG/ML VIAL IV PRN (13:40)
--- NOTE | 2018-04-21 14:48 | Procedure Note ---
Procedures - Central Line Placement Right IJ Consent obtained: verbal consent Time out performed: Yes Patient placed on monitor/pulse ox: Yes MD prep: mask, sterile gown, sterile gloves, cap Central line prep: 2% Chlorhexidine scrub Local anesthesia used: lidocaine 2% Ultrasound used for placement: Yes Central line lumen inserted: quad, 16 cm Post procedure: sutured in place, good blood return, all ports aspirated, flushed, capped, sterile dressing applied Post procedure x-ray: tip of catheter in good position, no pneumothorax seen Patient tolerated procedure: no complications Complications: none
--- NOTE | 2018-04-21 14:50 | XRay Report ---
HISTORY: Central venous catheter insertion FINDINGS: A right internal jugular catheter has been inserted. The tip is in the region of the superior vena cava at the level of the right mainstem bronchus. There is no pneumothorax or widening of the mediastinum. There are persistent bilateral pulmonary infiltrates with the greatest consolidation in the left lower lobe. Small left-sided pleural effusion is present. The heart size is normal. The infiltrates have not changed since 9:20 AM on the same date. Current study was done at 14:34. IMPRESSION: No complication following insertion of a right internal jugular catheter Interpreted and Authenticated by: Santy Baker 04/21/18
--- NOTE | 2018-04-21 17:25 | Ultrasound Report ---
CLINICAL INFORMATION: Recent trauma with left-sided pleural effusion and pneumonia TECHNIQUE: The procedure and risks were explained. A small pleural effusion was localized posteriorly in the left lower thorax. The patient was placed in a right lateral decubitus position. Due to a recent hip fracture she was unable to sit up. The skin over the left flank was prepped with ChloraPrep and then anesthetized with 1% lidocaine. Using ultrasound guidance a Yueh needle was inserted into the pleural space. 400 cc of clear yellow fluid was removed and sent to laboratory for analysis. All of the visualized fluid was drained. She tolerated the procedure well without complication. IMPRESSION: Successful left-sided thoracentesis removing 400 cc of fluid Interpreted and Authenticated by: Santy Baker 04/21/18
--- NOTE | 2018-04-21 17:26 | XRay Report ---
HISTORY: Post left-sided thoracentesis and pneumonia FINDINGS: There is no pneumothorax following the preceding left side thoracentesis. There has been significant reexpansion of the basilar segments left lower lobe. There is a residual small alveolar infiltrate at the right lung base adjacent to the diaphragm. There is minor blunting the costophrenic sulci bilaterally due to small pleural effusions. Patient has generalized interstitial lung disease and the lungs are hyperinflated. IMPRESSION: No complication following left-sided thoracentesis. Significant reexpansion of the left lower lobe following removal of the pleural fluid Interpreted and Authenticated by: Santy Baker 04/21/18
[2018-04-21 18:15] LABS: Amylase,Pleural Fluid 54 U/L; Glucose,Pleural Fluid 210 mg/dL; LDH,Pleural Fluid 192 U/L
[2018-04-21 18:48] LABS: Neutrophils,Pleural Fluid 37 %
[2018-04-21 18:49] LABS: Appearance,Pleural Fluid SLIGHTLY CLOUDY; Color,Pleural Fluid PALE YELLOW; Nucleated Cells,Pleural Fld 461 /cumm; RBC,Pleural Fluid < 50000 /cumm
[2018-04-21 19:00] LABS: pH,Body Fluid 7.64
[2018-04-21] MEDS: HYDROCODONE/APAP 7.5/325MG TABLET PO PRN (20:12)
[2018-04-21] MEDS: LACTATED RINGERS 1,000 ML IV SCH (20:13)
[2018-04-21] MEDS ORDERED: IOPAMIDOL 100 ML BOTTLE IV ONE (21:25)
[2018-04-22] MEDS: PIPERACILLIN SODIUM/TAZOBACTAM 2.25 GM in DEXTROSE 5% IN WATER 50 ML IV SCH ×4 (00:06→18:49)
[2018-04-22] MEDS: IPRATROPIUM/ALBUTEROL 3 ML AMPUL.NEB NEB SCH ×6 (02:31→23:07)
[2018-04-22] MEDS: 0.9 % SODIUM CHLORIDE 10 ML SYRINGE IV SCH ×8 (05:38→21:37)
[2018-04-22 06:06] LABS: Basophils # (Auto) 0 K/mcL (0.0-0.3); Basophils % (Auto) 0 % (0.0-2.0); Eosinophils # (Auto) 0 K/mcL (0.0-0.7); Eosinophils % (Auto) 0 % (0.0-7.0); Granulocytes % (Auto) 96.9 % (38.0-78.0); Lymphocytes # (Auto) 0.4 K/mcL (1.5-4.8); Lymphocytes % (Auto) 1.4 % (15.5-49.0); Mean Cell Volume 95.8 fL (80.0-100.0); Mean Corpuscular HGB Conc 32.5 g/dL (31.0-36.0); Monocytes # (Auto) 0.4 K/mcL (0.1-0.9); Monocytes % (Auto) 1.7 % (1.0-12.0); Platelet Count 509 K/mcL (140-440); RBC 2.15 M/mcL (4.00-5.20); Red Cell Distribution Width 13.5 % (11.5-14.5)
[2018-04-22] MEDS ORDERED: 0.9 % SODIUM CHLORIDE 250 ML IV SCH (06:15)
[2018-04-22] MEDS: LACTATED RINGERS 1,000 ML IV SCH (06:23)
[2018-04-22 06:36] LABS: ALT/SGPT 30 U/l (0-40); Albumin 2.4 gm/dL (3.2-5.2); Albumin/Globulin Ratio 0.9 (1.0-2.3); Alkaline Phosphatase 167 U/L (39-117); Bilirubin,Direct < 0.2 mg/dL (0.0-0.3); Blood Urea Nitrogen 32 mg/dl (8-23); Gamma Glutamyl Transpeptidase 24 U/L (5-36); Uric Acid 5.7 mg/dL (2.5-8.0)
--- NOTE | 2018-04-22 07:54 | Cat Scan Report ---
CLINICAL INFORMATION: Hypoxia and status post recent surgical repair of a hip fracture COMPARISON: None TECHNIQUE: Axial images obtained through the chest. intravenous contrast administration was administered, and scanning was performed during pulmonary arterial phase. Sagittally and coronally reformatted images were obtained. MIP reformatted images. The radiation exposure was limited using dose reduction technology. FINDINGS: The pulmonary arteries are normal without evidence of emboli. The aorta is normal in caliber with no aneurysm or dissection. There is plaque formation throughout the thoracic aorta. There is relative sparing of the coronary arteries. Heart is normal in size and contour. Patient has moderate centrilobular emphysema throughout both lungs. There is parenchymal scarring bilaterally. A large zone of consolidated lung parenchyma is present in the inferior segment of lingula which could be scar or atelectasis. There are smaller spiculated densities which appear to be scar anteriorly and posteriorly in the right upper lobe. Mild groundglass alveolar opacities are present in the inferior segment lingula. There is a small peripheral area of consolidated lung tissue posteriorly in the right lower lobe with minor consolidation posteriorly and laterally in the left lower lobe. All of the pleural fluid has been removed from the left thorax following the preceding thoracentesis. No pneumothorax is present. There are few small scattered peripheral nodules in both lungs ranging from 2 to 6 mm in size. Some are calcified. There is complete atelectasis of right middle lobe. The right middle lobe bronchus is partially occluded. There is also mucus plugging in several of the peripheral bronchi in both lower lobes. IMPRESSION: No evidence of pulmonary emboli Moderate emphysema and pulmonary fibrosis Small infiltrates in the lingula and both lower lobes which may be a combination of atelectasis and pneumonia Complete atelectasis of the right middle lobe with mucus plugging in the right middle lobe bronchus and in the basilar segments of both lower lobes Small scattered peripheral nodules in both lungs. These are more likely due to granuloma rather than metastasis. Interpreted and Authenticated by: Santy Baker 04/22/18
[2018-04-22] MEDS ORDERED: HYDROmorphone 2 MG/ML VIAL IV PRN (07:56)
[2018-04-22] MEDS: PANTOPRAZOLE 40 MG VIAL IV SCH ×2 (07:59→18:47)
[2018-04-22] MEDS ORDERED: FUROSEMIDE 20 MG/2 ML VIAL IV ONE (09:34)
--- NOTE | 2018-04-22 09:48 | Cat Scan Report ---
CLINICAL INFORMATION: Retroperitoneal hemorrhage and hypoxia COMPARISON: 12/15/14 TECHNIQUE: The abdomen was imaged without oral or IV contrast, scanning from the diaphragm to the symphysis pubis. Sagittal and coronal reformats were created. The radiation exposure was limited using dose reduction technology. FINDINGS: There is partial consolidation of lung parenchyma in both lung bases this has remained stable since yesterday's chest CT. No pleural effusion has reaccumulating. The liver and spleen are normal in size. There is a calcified granuloma centrally in the spleen. The liver is homogeneous. The gallbladder is not clearly identified and is either been resected or is contracted. There are no clips in the gallbladder fossa. There is residual contrast in the renal collecting systems and bladder following yesterday's chest CT with IV contrast. 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 No hydronephrosis is present. Urinary bladder is decompressed by Coulter catheter. No retroperitoneal or intraperitoneal hemorrhage are present. The bowel gas pattern is normal. No abnormality seen within the pancreas the left adrenal gland has enlarged since a prior abdomen CT done on 12/05/14. Has indistinct margins measures 1.3 x 1.4 cm. It previously measured approximately 0.8 x 2.3 cm. There stranding concerning. Renal fat. The right adrenal gland is normal. There is a moderate amount calcified plaque throughout the aorta, iliac and visceral arteries. The aorta is normal in caliber. There is a left hip prosthesis. Patient has a moderate-sized subcutaneous hematoma lateral to the left gluteus keisha muscle. It is approximately 6 cm in length. Uterus and ovaries have been removed. Bone windows show no pelvic or spinal fracture. There is degenerative disc disease and arthritis in the lower lumbar spine. IMPRESSION: Subcutaneous hematoma lateral to the left hip. No intraabdominal or pelvic hematoma Partial consolidation of the basilar segments of both lower lobes which may be a combination of atelectasis, inflammation and fibrosis Mild enlargement of the left adrenal gland with indistinct margins. It is possible there may have been a small intraparenchymal hemorrhage within the adrenal. This is less likely due to neoplasm. Interpreted and Authenticated by: Santy Baker 04/22/18
[2018-04-22 10:28] LABS: Retic Absolute 1.5 % (0.5-1.5)
[2018-04-22] MEDS: BECLOMETHASONE DIPROPIONATE 40MCG INHALER INH SCH ×2 (10:29→21:36)
[2018-04-22] MEDS: CYANOCOBALAMIN 5000 MCG PO SCH (10:29)
[2018-04-22] MEDS: OSELTAMIVIR PHOSPHATE 6 MG/ML BOTTLE PO SCH ×2 (10:29→21:35)
[2018-04-22] MEDS: methylPREDNISolone SOD SUCC 125 MG/2 ML VIAL IV SCH ×2 (10:31→21:35)
[2018-04-22 10:49] LABS: Iron 39 mcg/dl (37-145); Transferrin % Saturation 33 % (15-50); Unsaturated Iron Binding 76 mcg/dL (112-346)
[2018-04-22 10:59] LABS: Haptoglobin 404 mg/dl (30-200)
--- NOTE | 2018-04-22 11:11 | Internal Med Progress Note ---
Medical - PN: Subj Patient information: Note initiated : 04/22/18 at 11:08 am Service Date, if different from initiated Date: [] Patient: Shari Rice 82 y/o F admitted on 04/20/18 for hypoxic. Chief Complaint: [] Interval history: freddy Rice is a 82 year old F with history of pulmonary fibrosis, COPD presents to the hospital from a custodial for evaluation of shortness of breath. On my evaluation patient was on BiPAP, eating 100% oxygen to maintain her oxygen saturation more than 95%. She noted that she has not been feeling well for the last 3-4 days. Short of breath and cough. Unable to provide much history due to acuity of medical condition. History obtained from talking to family as well as chart review. The patient was admitted on 12 April at [facility] after a fall. The patient developed a maxillary fracture, radius ulna fracture and hip fracture. The patient hip fracture was fixed and the patient was discharged to custodial for further rehab. The hospital stay it seems was complicated with a pneumonia. Patient was discharged with p.o. levofloxacin. The patient condition probably worsened at the rehab center, this morning it was noted by the custodial staff that the patient was hypoxic needing more than 6 L of oxygen to keep her oxygen levels more than 90. Patient was therefore sent to the emergency room for further evaluation. The patient was also tachyca rdic tachypneic and febrile. On presentation to the emergency room patient was febrile with a temperature of 101.7, tachycardic heart rate 122 blood pressure 115/61 tachypneic respiratory rate between 30-35 and saturating 87% despite being 100% FiO2 on a nonrebreather. Patient was subsequently placed on a BiPAP. Labs show a WBC count of 23,700 hemoglobin 9.2, 24% bands platelets 546 lactic acid 1.2 Sodium is 130 potassium is 3.8 bicarbonate is 31 creatinine is 1.0 glucose is 187. ABG shows pH of 7.52 PCO2 49 PO2 48 on a nonrebreather Chest x-ray shows bilateral pneumonia left greater than right bilateral effusion left greater than right underlying pulmonary fibrosis. EKG done shows sinus tachycardia nonspecific ST wave changes in the lateral leads and poor R wave progression Patient is being admitted to the ICU for further management, I have reviewed with the patient's family, her sons in the emergency room with regards to overall poor prognosis of this patient given the severity of illness. They verbalized understanding. They are okay with BiPAP, central line and pressors but did not want CPR or intubation. 04/21 Patient seen examined, no acute overnight issues, pt still on bipap this AM, but did not want to be on it, we have placed her on hiflo oxygen. X ray shows persistent left pleural effusion and pneumonia. CTA planned by ER was not done, started pt on therapeutic anticoagulation She needs thoracocentesis for further evaluation of left pleural effusion She also has poor iv access, unable to place picc, will need central line. Initially she was refusing care this am, wanting to talk with her family, after a discussion with family she did agree, patient remains critically ill.Flu is neg, but given high prevelance will complete course for 5 days. 04/22 Pt seen examined, CTA neg for PE, Pt had drop in her Hb from 8.7 to 6.7, pt had no obvious source of bleed, CT abdomen is negative for any retroperitoneal bleed, but did note a 6 cm subcutaneous hematoma on the left hip site. GI consulted. Ok to intubate for EGD if necessary, pt is presently on NRB and saturating well Pt had thoracocentesis yesterday, 400cc fluid removed, appears transudative in nature. Pertinent ROS: Complains of dry mouth Denies headache, dizziness Denies chest pain, palpitations no cough, but does have shortness of breath, which is improving. Denies abdominal pain, nausea or vomiting. - Constitutional Vitals: Vital Signs Temp Pulse Resp BP Pulse Ox 98.7 F 108 H 21 114/54 92 04/22/18 10:56 04/22/18 10:56 04/22/18 10:56 04/22/18 10:00 04/22/18 10:56 Period Temp Pulse Resp BP Sys/Marcus Pulse Ox Last 24 Hr 97.5 F-99.0 F 98-117 14-25 89-128/45-66 87-100 Intake and Output 04/21/18 04/22/18 04/22/18 21:59 05:59 13:59 Intake Total 1050 50 1370 Output Total 226 250 145 Balance 824 -200 1225 Weight 91 lb 8 oz Intake & Output: Intake & Output 04/21/18 04/22/18 04/22/18 21:59 05:59 13:59 Intake Total 1050 50 1370 Output Total 226 250 145 Balance 824 -200 1225 Weight 91 lb 8 oz Intake: IV 1050 50 1370 Lactated Ringers 1,000 ml @ 100 1320 mls/hr IV .Q10H WENDY Rx#: [id number] Zosyn 2.25 gm In Dextrose 5% in 50 50 50 Water 50 ml @ 100 mls/hr IV Q6H WENDY Rx#:[id number] Output: Urine Catheter Amount 226 250 145 Other: Urine Appearance Clear Clear Uretheral (Coulter) Sediment Urine Color Bright Yellow Straw Uretheral (Coulter) Light Mel Exam: Constitutional; Afebrile, cooperative, alert, not in distress. Eyes- No icterus, , No periorbital swelling Ears- Ext ear normal, hearing normal to conversation. Neck- Midline trachea, supple Respiratory system: Air Entry equal on both sides, decreased air entry bilaterally, prolonged exp phase, but no wheezing, no obvious crackles noted. CVS- Rate rhythm regular, S1,S2 heard, no gallop, no rub. Abdomen- Soft nontender abdomen, no organomegaly, no tenderness, no guarding or rigidity, REPORTING ANALYST- AOOx3, moving all extremities, no gross focal deficit noted. Medical - PN: Obj Da - Labs CBC & Chem 7: 04/22/18 07:43 04/22/18 03:40 Labs: Abnormal Lab Results 04/22/18 04/22/18 04/22/18 09:47 09:47 07:43 WBC RBC Hgb 6.9 L* Hct 21.2 L Plt Count MPV Gran % Lymph % (Auto) [place] % (Auto) Gran # Lymph # (Auto) Band Neutrophils % Lymphocytes % Metamyelocytes % Myelocytes % WBC Morphology Vacuolated Neuts Toxic Granulation Dohle Bodies RBC Morphology Polychromasia Hypochromasia Haptoglobin 404 H PT INR D-Dimer Sodium Chloride Carbon Dioxide BUN Creatinine Glucose Calcium Phosphorus TIBC 115 L Unsat Iron Binding 76 L Ferritin 1800.0 H Alkaline Phosphatase Lactate Dehydrogenase Total Protein Albumin Albumin/Globulin Ratio Urine Protein Urine Occult Blood Urine Nitrate Ur Leukocyte Esterase Urine RBC Urine WBC Amorphous Crystals Hyaline Casts Urine Yeast (Budding) 04/22/18 04/22/18 04/21/18 03:41 03:40 14:48 WBC 25.8 H RBC 2.15 L Hgb 6.7 L* Hct 20.7 L* Plt Count 509 H MPV Gran % 96.9 H Lymph % (Auto) 1.4 L [place] % (Auto) Gran # 25.0 H Lymph # (Auto) 0.4 L Band Neutrophils % Lymphocytes % Metamyelocytes % Myelocytes % WBC Morphology Vacuolated Neuts Toxic Granulation Dohle Bodies RBC Morphology Polychromasia Hypochromasia Haptoglobin PT 16.2 H INR 1.3 H D-Dimer Sodium Chloride 95 L Carbon Dioxide 32 H BUN 32 H Creatinine 1.2 H Glucose 177 H Calcium 8.3 L Phosphorus TIBC Unsat Iron Binding Ferritin Alkaline Phosphatase 167 H Lactate Dehydrogenase 329 H Total Protein 5.2 L Albumin 2.4 L Albumin/Globulin Ratio 0.9 L Urine Protein Urine Occult Blood Urine Nitrate Ur Leukocyte Esterase Urine RBC Urine WBC Amorphous Crystals Hyaline Casts Urine Yeast (Budding) 04/21/18 04/21/18 04/20/18 04:00 04:00 14:10 WBC 26.4 H RBC 2.81 L Hgb 8.7 L Hct 26.7 L Plt Count 532 H MPV Gran % 98.4 H Lymph % (Auto) 1.1 L [place] % (Auto) 0.4 L Gran # 26.0 H Lymph # (Auto) 0.3 L Band Neutrophils % Lymphocytes % Metamyelocytes % Myelocytes % WBC Morphology Vacuolated Neuts Toxic Granulation Dohle Bodies RBC Morphology Polychromasia Hypochromasia Haptoglobin PT INR D-Dimer Sodium Chloride 91 L Carbon Dioxide 32 H BUN Creatinine Glucose 219 H Calcium Phosphorus 4.8 H TIBC Unsat Iron Binding Ferritin Alkaline Phosphatase 118 H Lactate Dehydrogenase 403 H Total Protein Albumin 2.7 L Albumin/Globulin Ratio 0.8 L Urine Protein >=500 A Urine Occult Blood 0.03 A Urine Nitrate Pos A Ur Leukocyte Esterase 250 A Urine RBC > 182 H Urine WBC > 182 H Amorphous Crystals Few A Hyaline Casts 21 H Urine Yeast (Budding) Few A 04/20/18 04/20/18 04/20/18 13:26 12:26 12:26 WBC 23.7 H RBC 2.97 L Hgb 9.2 L Hct 27.7 L Plt Count 546 H MPV 7.0 L Gran % Lymph % (Auto) [place] % (Auto) Gran # Lymph # (Auto) Band Neutrophils % 24 H Lymphocytes % 5 L Metamyelocytes % 4 H Myelocytes % 3 H WBC Morphology Abnorm A Vacuolated Neuts 1+ A Toxic Granulation 1+ A Dohle Bodies Few A RBC Morphology Abnorm A Polychromasia 1+ A Hypochromasia 1+ A Haptoglobin PT INR D-Dimer 3.90 H Sodium 130 L Chloride 86 L Carbon Dioxide 31 H BUN Creatinine Glucose 187 H Calcium Phosphorus TIBC Unsat Iron Binding Ferritin Alkaline Phosphatase Lactate Dehydrogenase Total Protein Albumin 2.6 L Albumin/Globulin Ratio 0.7 L Urine Protein Urine Occult Blood Urine Nitrate Ur Leukocyte Esterase Urine RBC Urine WBC Amorphous Crystals Hyaline Casts Urine Yeast (Budding) Meds: Medications Acetaminophen (Tylenol) 650 mg PO Q4-6HP PRN PRN Reason: PAIN/FEVER > 101 Hydrocodone Bitart/Acetaminophen (Mchenry 7.5/325mg) 1 tab PO Q4HP PRN PRN Reason: Pain Last Admin: 04/21/18 20:12 Dose: 1 tab Documented by: Albuterol/Ipratropium (Duoneb) 3 ml NEB Q4HRT [facility] Last Admin: 04/22/18 07:29 Dose: 3 ml Documented by: Beclomethasone Dipropionate (Qvar 40) 1 puff INH BID [facility] Last Admin: 04/22/18 10:29 Dose: Not Given Documented by: Hydromorphone HCl (Dilaudid) 0.5 - 1 mg IV Q2HP PRN PRN Reason: PAIN LEVEL > 6 Norepinephrine Bitartrate 16 (mg/ Sodium Chloride) 250 mls @ 9.38 mls/hr IV Q24HP PRN; Protocol PRN Reason: Hypotension Piperacillin Sod/Tazobactam (Sod 2.25 gm/ Dextrose) 50 mls @ 100 mls/hr IV Q6H [facility] Last Infusion: 04/22/18 06:20 Dose: Infused Documented by: Vancomycin HCl 1,000 mg/ (Sodium Chloride) 250 mls @ 250 mls/hr IV Q24H [facility] Last Infusion: 04/21/18 10:15 Dose: Infused Documented by: Sodium Chloride (Sodium Chloride 0.9%) 250 mls @ 20 mls/hr IV .[id number] [facility] Stop: 04/22/18 18:44 Lorazepam (Ativan) 0.5 mg IV Q4HP PRN PRN Reason: ANXIETY/SEDATION Last Admin: 04/21/18 13:40 Dose: 0.5 mg Documented by: Methylprednisolone Sodium Succinate (Solu-Medrol) 30 mg IV Q12 [facility] Last Admin: 04/22/18 10:31 Dose: 30 mg Documented by: Naloxone HCl (Narcan) 0.1 mg IV Q2MIN PRN PRN Reason: Opiate Reversal Olanzapine (Zyprexa) 5 mg IM Q2HP PRN PRN Reason: Anxiety Ondansetron HCl (Zofran) 4 mg IV Q4-6HP PRN PRN Reason: Nausea And Vomiting Oseltamivir Phosphate (Oseltamivir Phosphate) 30 mg PO BID [facility] Last Admin: 04/22/18 10:29 Dose: 30 mg Documented by: Pantoprazole Sodium (Protonix) 40 mg IV QAMAC [facility] Last Admin: 04/22/18 07:59 Dose: 40 mg Documented by: Cyanocobalamin [ Vitamin B12] 5,000 Mcg Tab 1 dose PO DAILY [facility] Last Admin: 04/22/18 10:29 Dose: Not Given Documented by: Sodium Chloride (Saline Flush) 10 ml IV Q8 [facility] Last Admin: 04/22/18 10:29 Dose: 10 ml Documented by: Sodium Chloride (Saline Flush) 10 ml IV UD PRN PRN Reason: FLUSH Sodium Chloride (Saline Flush) 10 ml IV Q12 [facility] Last Admin: 04/22/18 10:30 Dose: 10 ml Documented by: Sodium Chloride (Saline Flush) 10 ml IV Q12 [facility] Last Admin: 04/22/18 10:30 Dose: 10 ml Documented by: Vancomycin HCl (Vancomycin Per Pharmacy) 1 order IV UD [facility] Last Admin: 04/20/18 16:32 Dose: Not Given Documented by: Medical - PN: A/P - Time Spent With Patient Total time spent is greater than 50% in coordination of care (as documented) at patient's floor/unit and/or counseling patient: - Narrative A/P Narrative: A/P Acute on Chronic Respiratory failure -at baseline on 3L oxygen, needs prn bipap, on NRB when off bipap, doing well Acute blood loss anemia - GI bleed? no clear e/o of same, pt was on ppi, , hold enoxaparin, start SCD, hold asa -also has hematoma on the thigh, noted on CT, -transfuse 2 untis, -Gi consulted. Health care associated pna - due to pna, health care associated, also has pulmonary fibrosis, IV vanco and zosyn to be started, blood cultures sent, sent sputum cultures. Results neg so far. Pleural effusion -bilateral, due to pna, left > right, it has remained, get thoracocentesis. -trasudative in nature Sepsis -resolving with treatment, no fever, bp stable, CKD -stable renal function. Monitor acute exacerbation of COPD/Pulmonary fibrosis - on 3 L oxygen at baseline -started on IV steroids for now.on bronchodilators, continue same. Multiple fractures - pain management and rehab. DNR code status PPI/SCD sq for GI and DVT prophylaxis Regular diet as tolerated Spent > 45 mins of critical care time, stabilizing patient, non invasive vent management, chart review, care coordination. Medical - PN: Qual - VTE Deep Vein Thrombosis/Pulmonary Embolism Present on Admission: No
[2018-04-22] MEDS ORDERED: VANCOMYCIN 750 MG in 0.9 % SODIUM CHLORIDE 250 ML IV ONE (13:00)
[2018-04-22] MEDS: VANCOMYCIN 1,000 MG in 0.9 % SODIUM CHLORIDE 250 ML IV SCH (14:02)
[2018-04-22] MEDS: HYDROCODONE/APAP 7.5/325MG TABLET PO PRN (21:38)
[2018-04-23] MEDS: PIPERACILLIN SODIUM/TAZOBACTAM 2.25 GM in DEXTROSE 5% IN WATER 50 ML IV SCH ×5 (00:23→23:34)
[2018-04-23] MEDS: IPRATROPIUM/ALBUTEROL 3 ML AMPUL.NEB NEB SCH ×6 (03:12→23:30)
[2018-04-23 05:16] LABS: Basophils # (Auto) 0 K/mcL (0.0-0.3); Basophils % (Auto) 0 % (0.0-2.0); Eosinophils # (Auto) 0 K/mcL (0.0-0.7); Eosinophils % (Auto) 0 % (0.0-7.0); Granulocytes % (Auto) 96.4 % (38.0-78.0); Lymphocytes # (Auto) 0.4 K/mcL (1.5-4.8); Mean Cell Volume 87.9 fL (80.0-100.0); Mean Corpuscular HGB Conc 32.9 g/dL (31.0-36.0); Monocytes # (Auto) 0.3 K/mcL (0.1-0.9); Monocytes % (Auto) 1.6 % (1.0-12.0); Platelet Count 493 K/mcL (140-440); RBC 3.37 M/mcL (4.00-5.20)
[2018-04-23 05:22] LABS: Vancomycin,Random 21.9 ug/mL
[2018-04-23 05:23] LABS: ALT/SGPT 26 U/l (0-40); Albumin 2.4 gm/dL (3.2-5.2); Albumin/Globulin Ratio 0.9 (1.0-2.3); Alkaline Phosphatase 90 U/L (39-117); Bilirubin,Direct 0.2 mg/dL (0.0-0.3); Blood Urea Nitrogen 34 mg/dl (8-23); Gamma Glutamyl Transpeptidase 22 U/L (5-36)
[2018-04-23] MEDS: 0.9 % SODIUM CHLORIDE 10 ML SYRINGE IV SCH ×7 (05:44→20:33)
[2018-04-23] MEDS ORDERED: POTASSIUM CHLORIDE 20 MEQ in DEXTROSE 5% IN WATER 250 ML IV ONE (07:46)
[2018-04-23] MEDS: methylPREDNISolone SOD SUCC 125 MG/2 ML VIAL IV SCH ×2 (08:38→20:31)
[2018-04-23] MEDS: BECLOMETHASONE DIPROPIONATE 40MCG INHALER INH SCH ×2 (08:39→20:32)
[2018-04-23] MEDS: PANTOPRAZOLE 40 MG VIAL IV SCH ×2 (08:39→17:17)
[2018-04-23] MEDS: OSELTAMIVIR PHOSPHATE 6 MG/ML BOTTLE PO SCH ×2 (08:39→20:31)
[2018-04-23] MEDS: CYANOCOBALAMIN 5000 MCG PO SCH (08:39)
--- NOTE | 2018-04-23 10:57 | Internal Med Progress Note ---
Medical - PN: Subj Patient information: Note initiated : 04/23/18 at 10:55 am Service Date, if different from initiated Date: [] Patient: Shari Rice 82 y/o F admitted on 04/20/18 for hypoxic. Chief Complaint: [] Interval history: freddy Rice is a 82 year old F with history of pulmonary fibrosis, COPD presents to the hospital from a snf for evaluation of shortness of breath. On my evaluation patient was on BiPAP, eating 100% oxygen to maintain her oxygen saturation more than 95%. She noted that she has not been feeling well for the last 3-4 days. Short of breath and cough. Unable to provide much history due to acuity of medical condition. History obtained from talking to family as well as chart review. The patient was admitted on 12 April at [facility] after a fall. The patient developed a maxillary fracture, radius ulna fracture and hip fracture. The patient hip fracture was fixed and the patient was discharged to snf for further rehab. The hospital stay it seems was complicated with a pneumonia. Patient was discharged with p.o. levofloxacin. The patient condition probably worsened at the rehab center, this morning it was noted by the snf staff that the patient was hypoxic needing more than 6 L of oxygen to keep her oxygen levels more than 90. Patient was therefore sent to the emergency room for further evaluation. The patient was also tachyca rdic tachypneic and febrile. On presentation to the emergency room patient was febrile with a temperature of 101.7, tachycardic heart rate 122 blood pressure 115/61 tachypneic respiratory rate between 30-35 and saturating 87% despite being 100% FiO2 on a nonrebreather. Patient was subsequently placed on a BiPAP. Labs show a WBC count of 23,700 hemoglobin 9.2, 24% bands platelets 546 lactic acid 1.2 Sodium is 130 potassium is 3.8 bicarbonate is 31 creatinine is 1.0 glucose is 187. ABG shows pH of 7.52 PCO2 49 PO2 48 on a nonrebreather Chest x-ray shows bilateral pneumonia left greater than right bilateral effusion left greater than right underlying pulmonary fibrosis. EKG done shows sinus tachycardia nonspecific ST wave changes in the lateral leads and poor R wave progression Patient is being admitted to the ICU for further management, I have reviewed with the patient's family, her sons in the emergency room with regards to overall poor prognosis of this patient given the severity of illness. They verbalized understanding. They are okay with BiPAP, central line and pressors but did not want CPR or intubation. 04/21 Patient seen examined, no acute overnight issues, pt still on bipap this AM, but did not want to be on it, we have placed her on hiflo oxygen. X ray shows persistent left pleural effusion and pneumonia. CTA planned by ER was not done, started pt on therapeutic anticoagulation She needs thoracocentesis for further evaluation of left pleural effusion She also has poor iv access, unable to place picc, will need central line. Initially she was refusing care this am, wanting to talk with her family, after a discussion with family she did agree, patient remains critically ill.Flu is neg, but given high prevelance will complete course for 5 days. 04/22 Pt seen examined, CTA neg for PE, Pt had drop in her Hb from 8.7 to 6.7, pt had no obvious source of bleed, CT abdomen is negative for any retroperitoneal bleed, but did note a 6 cm subcutaneous hematoma on the left hip site. GI consulted. Ok to intubate for EGD if necessary, pt is presently on NRB and saturating well Pt had thoracocentesis yesterday, 400cc fluid removed, appears transudative in nature. 04/22 Patient seen examined, no acute overnight issues, pt remains on bipap, ABG this AM 7.42/58/86 Pt to be given trial off bipap, wean off bipap as tolerated Oral feeds to resume after EGD Hb stable, plan EGD this PM by Dr Tracy, with help of anesthesia. Pertinent ROS: feels tired and fatigued still has shortness of breath No chest pain reported no abdominal pain reported - Constitutional Vitals: Vital Signs Temp Pulse Resp BP Pulse Ox 98.6 F 116 H 25 H 130/54 92 04/23/18 10:19 04/23/18 10:19 04/23/18 10:04/23/18 10:00 04/23/18 10:19 Period Temp Pulse Resp BP Sys/Marcus Pulse Ox Last 24 Hr 97.4 F-99.3 F 80-118 11-30 102-147/41-66 86-98 Intake and Output 04/22/18 04/23/18 04/23/18 21:59 05:59 13:59 Intake Total 624 100 290 Output Total 462 233 113 Balance 162 -133 177 Weight 99 lb 99 lb Patient Weight 04/24/18 05:59 Weight 99 lb Intake & Output: Intake & Output 04/22/18 04/23/18 04/23/18 21:59 05:59 13:59 Intake Total 624 100 290 Output Total 462 233 113 Balance 162 -133 177 Weight 99 lb 99 lb Intake: IV 300 50 50 Zosyn 2.25 gm In Dextrose 5% in 50 50 50 Water 50 ml @ 100 mls/hr IV Q6H [facility] Rx#:[id number] Vancomycin 750 mg In Sodium 250 Chloride 0.9% 250 ml @ 250 mls/ hr IV ONCE ONE Rx#:[id number] Oral 50 240 Blood Product 324 Output: Urine Catheter Amount 462 233 113 Other: Urine Appearance Clear Clear Uretheral (Coulter) Clear Clear Clear Urine Color Bright Yellow Bright Yellow Pale Uretheral (Coulter) Pale Pale Pale Bright Yellow Urine Odor Normal Exam: Constitutional; Afebrile, cooperative, on bipap drowsy.. Respiratory system: Air Entry equal on both sides, poor air entry bilatreall, pr olonged exp phase, no obvious wheezing noted. CVS- Rate rhythm regular, S1,S2 heard, no gallop, no rub. Abdomen- Soft nontender abdomen, no organomegaly, no tenderness, no guarding or rigidity, TILE EDGER- AOOx3, moving all extremities, no gross focal deficit noted. Medical - PN: Obj Da - Labs CBC & Chem 7: 04/23/18 03:30 04/23/18 03:30 Labs: Abnormal Lab Results 04/23/18 04/23/18 04/22/18 03:30 03:30 09:47 WBC 17.8 H RBC 3.37 L Hgb 9.8 L Hct 29.6 L RDW 19.0 H Plt Count 493 H MPV Gran % 96.4 H Lymph % (Auto) 2.0 L Phelps % (Auto) Gran # 17.1 H Lymph # (Auto) 0.4 L Band Neutrophils % Lymphocytes % Metamyelocytes % Myelocytes % WBC Morphology Vacuolated Neuts Toxic Granulation Dohle Bodies RBC Morphology Polychromasia Hypochromasia Haptoglobin PT INR D-Dimer Sodium Chloride Carbon Dioxide 35 H BUN 34 H Creatinine 1.2 H Glucose 173 H Calcium 8.1 L Phosphorus TIBC 115 L Unsat Iron Binding 76 L Ferritin Alkaline Phosphatase Lactate Dehydrogenase 290 H Total Protein 5.1 L Albumin 2.4 L Albumin/Globulin Ratio 0.9 L Urine Protein Urine Occult Blood Urine Nitrate Ur Leukocyte Esterase Urine RBC Urine WBC Amorphous Crystals Hyaline Casts Urine Yeast (Budding) 04/22/18 04/22/18 04/22/18 09:47 07:43 03:41 WBC 25.8 H RBC 2.15 L Hgb 6.9 L* 6.7 L* Hct 21.2 L 20.7 L* RDW Plt Count 509 H MPV Gran % 96.9 H Lymph % (Auto) 1.4 L Phelps % (Auto) Gran # 25.0 H Lymph # (Auto) 0.4 L Band Neutrophils % Lymphocytes % Metamyelocytes % Myelocytes % WBC Morphology Vacuolated Neuts Toxic Granulation Dohle Bodies RBC Morphology Polychromasia Hypochromasia Haptoglobin 404 H PT INR D-Dimer Sodium Chloride Carbon Dioxide BUN Creatinine Glucose Calcium Phosphorus TIBC Unsat Iron Binding Ferritin 1800.0 H Alkaline Phosphatase Lactate Dehydrogenase Total Protein Albumin Albumin/Globulin Ratio Urine Protein Urine Occult Blood Urine Nitrate Ur Leukocyte Esterase Urine RBC Urine WBC Amorphous Crystals Hyaline Casts Urine Yeast (Budding) 04/22/18 04/21/18 04/21/18 03:40 14:48 04:00 WBC RBC Hgb Hct RDW Plt Count MPV Gran % Lymph % (Auto) Phelps % (Auto) Gran # Lymph # (Auto) Band Neutrophils % Lymphocytes % Metamyelocytes % Myelocytes % WBC Morphology Vacuolated Neuts Toxic Granulation Dohle Bodies RBC Morphology Polychromasia Hypochromasia Haptoglobin PT 16.2 H INR 1.3 H D-Dimer Sodium Chloride 95 L 91 L Carbon Dioxide 32 H 32 H BUN 32 H Creatinine 1.2 H Glucose 177 H 219 H Calcium 8.3 L Phosphorus 4.8 H TIBC Unsat Iron Binding Ferritin Alkaline Phosphatase 167 H 118 H Lactate Dehydrogenase 329 H 403 H Total Protein 5.2 L Albumin 2.4 L 2.7 L Albumin/Globulin Ratio 0.9 L 0.8 L Urine Protein Urine Occult Blood Urine Nitrate Ur Leukocyte Esterase Urine RBC Urine WBC Amorphous Crystals Hyaline Casts Urine Yeast (Budding) 04/21/18 04/20/18 04/20/18 04:00 14:10 13:26 WBC 26.4 H RBC 2.81 L Hgb 8.7 L Hct 26.7 L RDW Plt Count 532 H MPV Gran % 98.4 H Lymph % (Auto) 1.1 L Phelps % (Auto) 0.4 L Gran # 26.0 H Lymph # (Auto) 0.3 L Band Neutrophils % Lymphocytes % Metamyelocytes % Myelocytes % WBC Morphology Vacuolated Neuts Toxic Granulation Dohle Bodies RBC Morphology Polychromasia Hypochromasia Haptoglobin PT INR D-Dimer 3.90 H Sodium Chloride Carbon Dioxide BUN Creatinine Glucose Calcium Phosphorus TIBC Unsat Iron Binding Ferritin Alkaline Phosphatase Lactate Dehydrogenase Total Protein Albumin Albumin/Globulin Ratio Urine Protein >=500 A Urine Occult Blood 0.03 A Urine Nitrate Pos A Ur Leukocyte Esterase 250 A Urine RBC > 182 H Urine WBC > 182 H Amorphous Crystals Few A Hyaline Casts 21 H Urine Yeast (Budding) Few A 04/20/18 04/20/18 12:26 12:26 WBC 23.7 H RBC 2.97 L Hgb 9.2 L Hct 27.7 L RDW Plt Count 546 H MPV 7.0 L Gran % Lymph % (Auto) Phelps % (Auto) Gran # Lymph # (Auto) Band Neutrophils % 24 H Lymphocytes % 5 L Metamyelocytes % 4 H Myelocytes % 3 H WBC Morphology Abnorm A Vacuolated Neuts 1+ A Toxic Granulation 1+ A Dohle Bodies Few A RBC Morphology Abnorm A Polychromasia 1+ A Hypochromasia 1+ A Haptoglobin PT INR D-Dimer Sodium 130 L Chloride 86 L Carbon Dioxide 31 H BUN Creatinine Glucose 187 H Calcium Phosphorus TIBC Unsat Iron Binding Ferritin Alkaline Phosphatase Lactate Dehydrogenase Total Protein Albumin 2.6 L Albumin/Globulin Ratio 0.7 L Urine Protein Urine Occult Blood Urine Nitrate Ur Leukocyte Esterase Urine RBC Urine WBC Amorphous Crystals Hyaline Casts Urine Yeast (Budding) Meds: Medications Acetaminophen (Tylenol) 650 mg PO Q4-6HP PRN PRN Reason: PAIN/FEVER > 101 Hydrocodone Bitart/Acetaminophen ([place] 7.5/325mg) 1 tab PO Q4HP PRN PRN Reason: Pain Last Admin: 04/22/18 21:38 Dose: 1 tab Documented by: Albuterol/Ipratropium (Duoneb) 3 ml NEB Q4HRT WENDY Last Admin: 04/23/18 07:05 Dose: 3 ml Documented by: Beclomethasone Dipropionate (Qvar 40) 1 puff INH BID [facility] Last Admin: 04/23/18 08:39 Dose: Not Given Documented by: Hydromorphone HCl (Dilaudid) 0.5 - 1 mg IV Q2HP PRN PRN Reason: PAIN LEVEL > 6 Norepinephrine Bitartrate 16 (mg/ Sodium Chloride) 250 mls @ 9.38 mls/hr IV Q24HP PRN; Protocol PRN Reason: Hypotension Piperacillin Sod/Tazobactam (Sod 2.25 gm/ Dextrose) 50 mls @ 100 mls/hr IV Q6H [facility] Last Infusion: 04/23/18 08:34 Dose: Infused Documented by: Lorazepam (Ativan) 0.5 mg IV Q4HP PRN PRN Reason: ANXIETY/SEDATION Last Admin: 04/21/18 13:40 Dose: 0.5 mg Documented by: Methylprednisolone Sodium Succinate (Solu-Medrol) 30 mg IV Q12 [facility] Last Admin: 04/23/18 08:38 Dose: 30 mg Documented by: Naloxone HCl (Narcan) 0.1 mg IV Q2MIN PRN PRN Reason: Opiate Reversal Olanzapine (Zyprexa) 5 mg IM Q2HP PRN PRN Reason: Anxiety Ondansetron HCl (Zofran) 4 mg IV Q4-6HP PRN PRN Reason: Nausea And Vomiting Oseltamivir Phosphate (Oseltamivir Phosphate) 30 mg PO BID [facility] Last Admin: 04/23/18 08:39 Dose: 30 mg Documented by: Pantoprazole Sodium (Protonix) 40 mg IV BIDAC [facility] Last Admin: 04/23/18 08:39 Dose: 40 mg Documented by: Cyanocobalamin [ Vitamin B12] 5,000 Mcg Tab 1 dose PO DAILY [facility] Last Admin: 04/23/18 08:39 Dose: Not Given Documented by: Sodium Chloride (Saline Flush) 10 ml IV Q8 [facility] Last Admin: 04/23/18 05:44 Dose: 10 ml Documented by: Sodium Chloride (Saline Flush) 10 ml IV UD PRN PRN Reason: FLUSH Sodium Chloride (Saline Flush) 10 ml IV Q12 [facility] Last Admin: 04/23/18 08:40 Dose: 10 ml Documented by: Sodium Chloride (Saline Flush) 10 ml IV Q12 [facility] Last Admin: 04/23/18 08:40 Dose: 10 ml Documented by: Vancomycin HCl (Vancomycin Per Pharmacy) 1 order IV UD [facility] Last Admin: 04/20/18 16:32 Dose: Not Given Documented by: Medical - PN: A/P - Time Spent With Patient Total time spent is greater than 50% in coordination of care (as documented) at patient's floor/unit and/or counseling patient: - Narrative A/P Narrative: A/P Acute on Chronic Respiratory failure -at baseline on 3L oxygen, needs prn bipap, on NRB when off bipap, stable for now, wean off bipap as tolerated. Acute blood loss anemia - GI bleed? no clear e/o of same, pt was on ppi, , hold enoxaparin, start SCD, hold asa -also has hematoma on the thigh, noted on CT, -transfuse 2 untis, -Gi consulted. EGD today? Health care associated pna - due to pna, health care associated, also has pulmonary fibrosis, IV vanco and zosyn to be started, blood cultures sent, sent sputum cultures. Results neg so far. Also on tamiflu (flu neg) given high prevalence Pleural effusion -bilateral, due to pna, left > right, , s/p thoracocentesis. -transudative in nature Urinary tract infectin -proteus, Zosyn should cover this. Sepsis -resolving with treatment, no fever, bp stable, CKD -stable renal function. Monitor acute exacerbation of COPD/Pulmonary fibrosis - on 3 L oxygen at baseline - on IV steroids for now.on bronchodilators, continue same. Multiple fractures - pain management and rehab. DNR code status PPI/SCD sq for GI and DVT prophylaxis Diet as tolerated Medical - PN: Qual - VTE Deep Vein Thrombosis/Pulmonary Embolism Present on Admission: No
--- NOTE | 2018-04-23 13:40 | Internal Med Progress Note ---
Medical - PN: Subj Patient information: Note initiated : 04/23/18 at 1:29 pm Service Date, if different from initiated Date: [] Patient: Shari Rice 82 y/o F admitted on 04/20/18 for hypoxic. Chief Complaint: [] Interval history: ms. Rice is a 82 year old F with history of pulmonary fibrosis, COPD presents to the hospital from a group home for evaluation of shortness of breath. On my evaluation patient was on BiPAP, eating 100% oxygen to maintain her oxygen saturation more than 95%. She noted that she has not been feeling well for the last 3-4 days. Short of breath and cough. Unable to provide much history due to acuity of medical condition. History obtained from talking to family as well as chart review. The patient was admitted on 12 April at [facility] after a fall. The patient developed a maxillary fracture, radius ulna fracture and hip fracture. The patient hip fracture was fixed and the patient was discharged to group home for further rehab. The hospital stay it seems was complicated with a pneumonia. Patient was discharged with p.o. levofloxacin. The patient condition probably worsened at the rehab center, this morning it was noted by the group home staff that the patient was hypoxic needing more than 6 L of oxygen to keep her oxygen levels more than 90. Patient was therefore sent to the emergency room for further evaluation. The patient was also tachyc ardic tachypneic and febrile. On presentation to the emergency room patient was febrile with a temperature of 101.7, tachycardic heart rate 122 blood pressure 115/61 tachypneic respiratory rate between 30-35 and saturating 87% despite being 100% FiO2 on a nonrebreather. Patient was subsequently placed on a BiPAP. Labs show a WBC count of 23,700 hemoglobin 9.2, 24% bands platelets 546 lactic acid 1.2 Sodium is 130 potassium is 3.8 bicarbonate is 31 creatinine is 1.0 glucose is 187. ABG shows pH of 7.52 PCO2 49 PO2 48 on a nonrebreather Chest x-ray shows bilateral pneumonia left greater than right bilateral effusion left greater than right underlying pulmonary fibrosis. EKG done shows sinus tachycardia nonspecific ST wave changes in the lateral leads and poor R wave progression Patient is being admitted to the ICU for further management, I have reviewed with the patient's family, her sons in the emergency room with regards to overall poor prognosis of this patient given the severity of illness. They verbalized understanding. They are okay with BiPAP, central line and pressors but did not want CPR or intubation. 04/21 Patient seen examined, no acute overnight issues, pt still on bipap this AM, but did not want to be on it, we have placed her on hiflo oxygen. X ray shows persistent left pleural effusion and pneumonia. CTA planned by ER was not done, started pt on therapeutic anticoagulation She needs thoracocentesis for further evaluation of left pleural effusion She also has poor iv access, unable to place picc, will need central line. Initially she was refusing care this am, wanting to talk with her family, after a discussion with family she did agree, patient remains critically ill.Flu is neg, but given high prevelance will complete course for 5 days. 04/22 Pt seen examined, CTA neg for PE, Pt had drop in her Hb from 8.7 to 6.7, pt had no obvious source of bleed, CT abdomen is negative for any retroperitoneal bleed, but did note a 6 cm subcutaneous hematoma on the left hip site. GI consulted. Ok to intubate for EGD if necessary, pt is presently on NRB and saturating well Pt had thoracocentesis yesterday, 400cc fluid removed, appears transudative in nature. 04/23 Patient seen examined, no acute overnight issues, pt remains on bipap, ABG this AM 7.42/58/86 Pt to be given trial off bipap, wean off bipap as tolerated Oral feeds to resume after EGD Hb stable, plan EGD this PM by Dr Tracy, with help of anesthesia. 04/24 - Constitutional Vitals: Vital Signs Temp Pulse Resp BP Pulse Ox 98.5 F 97 H 18 137/71 96 04/23/18 13:27 04/23/18 13:27 04/23/18 13:27 04/23/18 13:01 04/23/18 13:27 Period Temp Pulse Resp BP Sys/Marcus Pulse Ox Last 24 Hr 97.4 F-99.3 F 80-118 11-30 102-147/41-71 86-98 Intake and Output 04/22/18 04/23/18 04/23/18 21:59 05:59 13:59 Intake Total 624 100 290 Output Total 462 233 148 Balance 162 -133 142 Weight 44.906 kg 44.906 kg Patient Weight 04/24/18 05:59 Weight 44.906 kg Intake & Output: Intake & Output 04/22/18 04/23/18 04/23/18 21:59 05:59 13:59 Intake Total 624 100 290 Output Total 462 233 148 Balance 162 -133 142 Weight 44.906 kg 44.906 kg Intake: IV 300 50 50 Zosyn 2.25 gm In Dextrose 5% in 50 50 50 Water 50 ml @ 100 mls/hr IV Q6H [facility] Rx#:[id number] Vancomycin 750 mg In Sodium 250 Chloride 0.9% 250 ml @ 250 mls/ hr IV ONCE ONE Rx#:[id number] Oral 50 240 Blood Product 324 Output: Urine Catheter Amount 462 233 148 Other: Urine Appearance Clear Clear Uretheral (Coulter) Clear Clear Clear Urine Color Bright Yellow Bright Yellow Pale Uretheral (Coulter) Pale Pale Pale Bright Yellow Urine Odor Normal Exam: General: Alert, Awake, No acute Distress Eyes/N/T: EOMI, Head/Neck: neck supple, CV: RRR, no murmurs Pulm: Diminished breath sounds bilaterally, prolonged expiratory phase, no wheezing Abd: soft, nontender, +BS x4 Ext: no clubbing/cyanosis/edema Neuro: Alert, no focal deficits, moves all extremities, CN 2-12 grossly intact, symmetrical strength b/l upper/lower, sensations intact b/l upper/lower Skin: warm/dry Medical - PN: Obj Da - Labs CBC & Chem 7: 04/23/18 03:30 04/23/18 03:30 Labs: Abnormal Lab Results 04/23/18 04/23/18 04/22/18 03:30 03:30 09:47 WBC 17.8 H RBC 3.37 L Hgb 9.8 L Hct 29.6 L RDW 19.0 H Plt Count 493 H Gran % 96.4 H Lymph % (Auto) 2.0 L [place] % (Auto) Gran # 17.1 H Lymph # (Auto) 0.4 L Band Neutrophils % Lymphocytes % Metamyelocytes % Myelocytes % WBC Morphology Vacuolated Neuts Toxic Granulation Dohle Bodies RBC Morphology Polychromasia Hypochromasia Haptoglobin PT INR D-Dimer Chloride Carbon Dioxide 35 H BUN 34 H Creatinine 1.2 H Glucose 173 H Calcium 8.1 L Phosphorus TIBC 115 L Unsat Iron Binding 76 L Ferritin Alkaline Phosphatase Lactate Dehydrogenase 290 H Total Protein 5.1 L Albumin 2.4 L Albumin/Globulin Ratio 0.9 L Urine Protein Urine Occult Blood Urine Nitrate Ur Leukocyte Esterase Urine RBC Urine WBC Amorphous Crystals Hyaline Casts Urine Yeast (Budding) 04/22/18 04/22/18 04/22/18 09:47 07:43 03:41 WBC 25.8 H RBC 2.15 L Hgb 6.9 L* 6.7 L* Hct 21.2 L 20.7 L* RDW Plt Count 509 H Gran % 96.9 H Lymph % (Auto) 1.4 L [place] % (Auto) Gran # 25.0 H Lymph # (Auto) 0.4 L Band Neutrophils % Lymphocytes % Metamyelocytes % Myelocytes % WBC Morphology Vacuolated Neuts Toxic Granulation Dohle Bodies RBC Morphology Polychromasia Hypochromasia Haptoglobin 404 H PT INR D-Dimer Chloride Carbon Dioxide BUN Creatinine Glucose Calcium Phosphorus TIBC Unsat Iron Binding Ferritin 1800.0 H Alkaline Phosphatase Lactate Dehydrogenase Total Protein Albumin Albumin/Globulin Ratio Urine Protein Urine Occult Blood Urine Nitrate Ur Leukocyte Esterase Urine RBC Urine WBC Amorphous Crystals Hyaline Casts Urine Yeast (Budding) 04/22/18 04/21/18 04/21/18 03:40 14:48 04:00 WBC RBC Hgb Hct RDW Plt Count Gran % Lymph % (Auto) [place] % (Auto) Gran # Lymph # (Auto) Band Neutrophils % Lymphocytes % Metamyelocytes % Myelocytes % WBC Morphology Vacuolated Neuts Toxic Granulation Dohle Bodies RBC Morphology Polychromasia Hypochromasia Haptoglobin PT 16.2 H INR 1.3 H D-Dimer Chloride 95 L 91 L Carbon Dioxide 32 H 32 H BUN 32 H Creatinine 1.2 H Glucose 177 H 219 H Calcium 8.3 L Phosphorus 4.8 H TIBC Unsat Iron Binding Ferritin Alkaline Phosphatase 167 H 118 H Lactate Dehydrogenase 329 H 403 H Total Protein 5.2 L Albumin 2.4 L 2.7 L Albumin/Globulin Ratio 0.9 L 0.8 L Urine Protein Urine Occult Blood Urine Nitrate Ur Leukocyte Esterase Urine RBC Urine WBC Amorphous Crystals Hyaline Casts Urine Yeast (Budding) 04/21/18 04/20/18 04/20/18 04:00 14:10 13:26 WBC 26.4 H RBC 2.81 L Hgb 8.7 L Hct 26.7 L RDW Plt Count 532 H Gran % 98.4 H Lymph % (Auto) 1.1 L [place] % (Auto) 0.4 L Gran # 26.0 H Lymph # (Auto) 0.3 L Band Neutrophils % Lymphocytes % Metamyelocytes % Myelocytes % WBC Morphology Vacuolated Neuts Toxic Granulation Dohle Bodies RBC Morphology Polychromasia Hypochromasia Haptoglobin PT INR D-Dimer 3.90 H Chloride Carbon Dioxide BUN Creatinine Glucose Calcium Phosphorus TIBC Unsat Iron Binding Ferritin Alkaline Phosphatase Lactate Dehydrogenase Total Protein Albumin Albumin/Globulin Ratio Urine Protein >=500 A Urine Occult Blood 0.03 A Urine Nitrate Pos A Ur Leukocyte Esterase 250 A Urine RBC > 182 H Urine WBC > 182 H Amorphous Crystals Few A Hyaline Casts 21 H Urine Yeast (Budding) Few A 04/20/18 12:26 WBC RBC Hgb Hct RDW Plt Count Gran % Lymph % (Auto) [place] % (Auto) Gran # Lymph # (Auto) Band Neutrophils % 24 H Lymphocytes % 5 L Metamyelocytes % 4 H Myelocytes % 3 H WBC Morphology Abnorm A Vacuolated Neuts 1+ A Toxic Granulation 1+ A Dohle Bodies Few A RBC Morphology Abnorm A Polychromasia 1+ A Hypochromasia 1+ A Haptoglobin PT INR D-Dimer Chloride Carbon Dioxide BUN Creatinine Glucose Calcium Phosphorus TIBC Unsat Iron Binding Ferritin Alkaline Phosphatase Lactate Dehydrogenase Total Protein Albumin Albumin/Globulin Ratio Urine Protein Urine Occult Blood Urine Nitrate Ur Leukocyte Esterase Urine RBC Urine WBC Amorphous Crystals Hyaline Casts Urine Yeast (Budding) Meds: Medications Acetaminophen (Tylenol) 650 mg PO Q4-6HP PRN PRN Reason: PAIN/FEVER > 101 Hydrocodone Bitart/Acetaminophen ([place] 7.5/325mg) 1 tab PO Q4HP PRN PRN Reason: Pain Last Admin: 04/22/18 21:38 Dose: 1 tab Documented by: Albuterol/Ipratropium (Duoneb) 3 ml NEB Q4HRT [facility] Last Admin: 04/23/18 10:56 Dose: 3 ml Documented by: Beclomethasone Dipropionate (Qvar 40) 1 puff INH BID [facility] Last Admin: 04/23/18 08:39 Dose: Not Given Documented by: Hydromorphone HCl (Dilaudid) 0.5 - 1 mg IV Q2HP PRN PRN Reason: PAIN LEVEL > 6 Norepinephrine Bitartrate 16 (mg/ Sodium Chloride) 250 mls @ 9.38 mls/hr IV Q24HP PRN; Protocol PRN Reason: Hypotension Piperacillin Sod/Tazobactam (Sod 2.25 gm/ Dextrose) 50 mls @ 100 mls/hr IV Q6H [facility] Last Admin: 04/23/18 12:34 Dose: 100 mls/hr Documented by: Lorazepam (Ativan) 0.5 mg IV Q4HP PRN PRN Reason: ANXIETY/SEDATION Last Admin: 04/21/18 13:40 Dose: 0.5 mg Documented by: Methylprednisolone Sodium Succinate (Solu-Medrol) 30 mg IV Q12 [facility] Last Admin: 04/23/18 08:38 Dose: 30 mg Documented by: Naloxone HCl (Narcan) 0.1 mg IV Q2MIN PRN PRN Reason: Opiate Reversal Olanzapine (Zyprexa) 5 mg IM Q2HP PRN PRN Reason: Anxiety Ondansetron HCl (Zofran) 4 mg IV Q4-6HP PRN PRN Reason: Nausea And Vomiting Oseltamivir Phosphate (Oseltamivir Phosphate) 30 mg PO BID [facility] Last Admin: 04/23/18 08:39 Dose: 30 mg Documented by: Pantoprazole Sodium (Protonix) 40 mg IV BIDAC [facility] Last Admin: 04/23/18 08:39 Dose: 40 mg Documented by: Cyanocobalamin [ Vitamin B12] 5,000 Mcg Tab 1 dose PO DAILY [facility] Last Admin: 04/23/18 08:39 Dose: Not Given Documented by: Sodium Chloride (Saline Flush) 10 ml IV Q8 [facility] Last Admin: 04/23/18 05:44 Dose: 10 ml Documented by: Sodium Chloride (Saline Flush) 10 ml IV UD PRN PRN Reason: FLUSH Sodium Chloride (Saline Flush) 10 ml IV Q12 [facility] Last Admin: 04/23/18 08:40 Dose: 10 ml Documented by: Sodium Chloride (Saline Flush) 10 ml IV Q12 [facility] Last Admin: 04/23/18 08:40 Dose: 10 ml Documented by: Vancomycin HCl (Vancomycin Per Pharmacy) 1 order IV UD [facility] Last Admin: 04/20/18 16:32 Dose: Not Given Documented by: Medical - PN: A/P - Time Spent With Patient Total time spent is greater than 50% in coordination of care (as documented) at patient's floor/unit and/or counseling patient: - Narrative A/P Narrative: A: *Acute on chronic respiratory failure -at baseline on 3L oxygen, need prn bipap *Acute blood loss anemia: -GI bleed? no clear e/o of same, pt was on ppi, -hematoma on the thigh contributing, noted on CT -s/p 2PRBC *HCAP: *Pleural effusion: s/p thoracocentesis (04/21), transudative in nature *UTI (proteus): *Sepsis: resolving *CKD III (1.0-1.2): *AECOPD (3L@home)/pulmonary fibrosis: *Recent fall with fractures left wrist/hip: s/p ORIF at [facility] * * P: -Continue to wean off BiPAP as able -IV vanco and zosyn to be started, blood cultures sent, sent sputum cultures. Re sults neg so far. Also on tamiflu (flu neg) given high prevalence -IV steroids(wean) for now, on bronchodilators, continue same. - -hold ASA -GI following, pendind EGD - - -pain mgmnt, rehab -pt/ot -ppx: SCD (lovenox held)/ppi Medical - PN: Qual - VTE Deep Vein Thrombosis/Pulmonary Embolism Present on Admission: No
[2018-04-23] MEDS ORDERED: MIDAZOLAM 2 MG/2 ML VIAL IV ONE (15:50)
[2018-04-23] MEDS ORDERED: KETAMINE 100 MG/ML ML IV ONE (15:50)
--- NOTE | 2018-04-23 16:55 | Operative Note ---
DATE OF OPERATION: 04/23/2018 PREPROCEDURE DIAGNOSIS: Upper GI bleed with greater than a 2 gram drop in hemoglobin from about 9 to 6.7. POSTPROCEDURE DIAGNOSES: 1. 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 2. Pneumonia. PROCEDURE: Esophagogastroduodenoscopy with ablation of lesion. SURGEON: Kevin Roth M.D. INSTRUMENT USED: Olympus BENEDICT [id number] endoscope. SPECIMENS OBTAINED: Biopsies from antrum for CLOtest. CLOtest RESULTS: Negative INDICATIONS: The patient is an 82-year-old lady whose primary care physician is Dr. Pineda. I was asked to see the patient by Dr. Louis, one of the hospitalists. The patient had been in the hospital for pneumonia. She did have a fairly sudden drop in the hemoglobin from about 9 to 6.7. I believe she received transfusion. Given her fragile respiratory status, it was determined that it would be best if Anesthesia would evaluate and suggest whether it would be safe to proceed with the endoscopy with them doing sedation or whether they would feel it would be wiser to postpone the exam. After initial evaluation, they chose to postpone the exam from Friday to . The patient had been on BiPAP. However, today, I believe she was on a higher flow oxygen and not using " I still feel it best to have Anesthesia provide the sedation, which they were kind enough to be willing to proceed with. INFORMED CONSENT: Time of informed consent was around 1550. The patient and family understand the procedure is risky, is a possibility. If we need an endotracheal tube to maintain good airway flow and saturation of oxygen, she may not be safe to be extubated for a long duration of time. It may be difficult to remove the endotracheal tube. Sometimes if a decision is made to remove the endotracheal tube, may be a possibility. However, they understand the bleeding also has its risks, and patient and family desired to proceed with the procedure even though it does have significant risks that do include fatality. IV MEDICATIONS USED: Please see anesthesia record. I believe the patient received ketamine and possibly some other medication. FINDINGS: ESOPHAGUS: Proximal, mid and distal esophagus normal. EG JUNCTION: This was around 38 cm and sometimes 40 cm. This appeared normal. STOMACH: Cardia, fundus, body and antrum: This appeared normal. Biopsies were taken for CLOtest -- to check for Helicobacter. PYLORUS: Normal. DUODENUM: The bulb appeared normal. In the descending limb of the duodenum, there were two angiodysplasia noted, about 5 or 6 mm in size. These were not bleeding at the time. However, they are the presumed bleeding site that caused the bleeding recently. Therefore, they were treated with plasma argon. No significant bleeding was noted after they were treated. The area was washed and watched for a while. Decision was made not to place a clip as the plasma argon treatment seemed to be satisfactory. The more distal portion of the descending limb of the duodenum appeared normal. RECOMMENDATIONS: Be alert for recurrent bleeding. If for some reason the patient does have recurrent bleeding, one may consider a repeat EGD and evaluation for cause of bleeding. If it appears like it is the angiodysplasia, one may need additional treatment and one may consider placing a Resolution clip or two on each one of these treated angiodysplasia. However, given the appearance of the angiodysplasia and the response after plasma argon therapy, I doubt the patient will have recurrent bleeding from this. She tolerated the sedation with ketamine quite well. No complications were noted. CRD:santa Job ID: [id number] Doc ID: [id number] [facility]ineda MD [facility]
[2018-04-23] MEDS ORDERED: 0.9 % SODIUM CHLORIDE 250 ML IV ONE (17:59)
[2018-04-23] MEDS: HYDROCODONE/APAP 7.5/325MG TABLET PO PRN (20:31)
[2018-04-24] MEDS: IPRATROPIUM/ALBUTEROL 3 ML AMPUL.NEB NEB SCH ×4 (03:41→20:20)
[2018-04-24] MEDS: 0.9 % SODIUM CHLORIDE 10 ML SYRINGE IV SCH ×7 (05:32→22:11)
[2018-04-24] MEDS: PIPERACILLIN SODIUM/TAZOBACTAM 2.25 GM in DEXTROSE 5% IN WATER 50 ML IV SCH ×3 (05:32→17:17)
[2018-04-24 05:40] LABS: Basophils # (Auto) 0 K/mcL (0.0-0.3); Basophils % (Auto) 0 % (0.0-2.0); Eosinophils # (Auto) 0 K/mcL (0.0-0.7); Eosinophils % (Auto) 0 % (0.0-7.0); Granulocytes % (Auto) 94.5 % (38.0-78.0); Lymphocytes # (Auto) 0.4 K/mcL (1.5-4.8); Lymphocytes % (Auto) 2.8 % (15.5-49.0); Mean Cell Volume 88.5 fL (80.0-100.0); Mean Corpuscular HGB Conc 33.2 g/dL (31.0-36.0); Monocytes # (Auto) 0.4 K/mcL (0.1-0.9); Monocytes % (Auto) 2.7 % (1.0-12.0); Platelet Count 528 K/mcL (140-440); RBC 3.35 M/mcL (4.00-5.20); Red Cell Distribution Width 18.4 % (11.5-14.5)
[2018-04-24 05:46] LABS: Vancomycin,Random 11.9 ug/mL
[2018-04-24 05:50] LABS: ALT/SGPT 23 U/l (0-40); Albumin 2.3 gm/dL (3.2-5.2); Albumin/Globulin Ratio 0.9 (1.0-2.3); Alkaline Phosphatase 77 U/L (39-117); Bilirubin,Direct < 0.2 mg/dL (0.0-0.3); Blood Urea Nitrogen 30 mg/dl (8-23); Gamma Glutamyl Transpeptidase 24 U/L (5-36); Uric Acid 4.4 mg/dL (2.5-8.0)
[2018-04-24] MEDS: PANTOPRAZOLE 40 MG VIAL IV SCH ×2 (07:54→16:56)
--- NOTE | 2018-04-24 07:58 | Internal Med Progress Note ---
Medical - PN: Subj Patient information: Note initiated : 04/24/18 at 7:49 am Service Date, if different from initiated Date: [] Patient: Shari Rice 82 y/o F admitted on 04/20/18 for hypoxic. Chief Complaint: [] Interval history: ms. Rice is a 82 year old F with history of pulmonary fibrosis, COPD presents to the hospital from a [facility] for evaluation of shortness of breath. On my evaluation patient was on BiPAP, eating 100% oxygen to maintain her oxygen saturation more than 95%. She noted that she has not been feeling well for the last 3-4 days. Short of breath and cough. Unable to provide much history due to acuity of medical condition. History obtained from talking to family as well as chart review. The patient was admitted on 12 April at [facility] after a fall. The patient developed a maxillary fracture, radius ulna fracture and hip fracture. The patient hip fracture was fixed and the patient was discharged to [facility] for further rehab. The hospital stay it seems was complicated with a pneumonia. Patient was discharged with p.o. levofloxacin. The patient condition probably worsened at the rehab center, this morning it was noted by the [facility]dc staff that the patient was hypoxic needing more than 6 L of oxygen to keep her oxygen levels more than 90. Patient was therefore sent to the emergency room for further evaluation. The patient was also tachyc ardic tachypneic and febrile. On presentation to the emergency room patient was febrile with a temperature of 101.7, tachycardic heart rate 122 blood pressure 115/61 tachypneic respiratory rate between 30-35 and saturating 87% despite being 100% FiO2 on a nonrebreather. Patient was subsequently placed on a BiPAP. Labs show a WBC count of 23,700 hemoglobin 9.2, 24% bands platelets 546 lactic acid 1.2 Sodium is 130 potassium is 3.8 bicarbonate is 31 creatinine is 1.0 glucose is 187. ABG shows pH of 7.52 PCO2 49 PO2 48 on a nonrebreather Chest x-ray shows bilateral pneumonia left greater than right bilateral effusion left greater than right underlying pulmonary fibrosis. EKG done shows sinus tachycardia nonspecific ST wave changes in the lateral leads and poor R wave progression Patient is being admitted to the ICU for further management, I have reviewed with the patient's family, her sons in the emergency room with regards to overall poor prognosis of this patient given the severity of illness. They verbalized understanding. They are okay with BiPAP, central line and pressors but did not want CPR or intubation. 04/21 Patient seen examined, no acute overnight issues, pt still on bipap this AM, but did not want to be on it, we have placed her on hiflo oxygen. X ray shows persistent left pleural effusion and pneumonia. CTA planned by ER was not done, started pt on therapeutic anticoagulation She needs thoracocentesis for further evaluation of left pleural effusion She also has poor iv access, unable to place picc, will need central line. Initially she was refusing care this am, wanting to talk with her family, after a discussion with family she did agree, patient remains critically ill.Flu is neg, but given high prevelance will complete course for 5 days. 04/22 Pt seen examined, CTA neg for PE, Pt had drop in her Hb from 8.7 to 6.7, pt had no obvious source of bleed, CT abdomen is negative for any retroperitoneal bleed, but did note a 6 cm subcutaneous hematoma on the left hip site. GI consulted. Ok to intubate for EGD if necessary, pt is presently on NRB and saturating well Pt had thoracocentesis yesterday, 400cc fluid removed, appears transudative in nature. 04/23 Patient seen examined, no acute overnight issues, pt remains on bipap, ABG this AM 7.42/58/86 Pt to be given trial off bipap, wean off bipap as tolerated Oral feeds to resume after EGD Hb stable, plan EGD this PM by Dr Tracy, with help of anesthesia. 04/24 no bipap required o/n, on nasal cannula at 5 L. With sats 94. Has occasional cough. And shortness of breath which she says is improved with Xopenex. Review of Systems: denies headache/fever/chills/nausea/vomiting/chest or abdominal pain. Otherwise see above. - Constitutional Vitals: Vital Signs Temp Pulse Resp BP Pulse Ox 98.1 F 89 22 144/59 94 04/24/18 07:00 04/24/18 07:00 04/24/18 07:00 04/24/18 07:00 04/24/18 07:00 Period Temp Pulse Resp BP Sys/Marcus Pulse Ox Last 24 Hr 97.7 F-98.9 F 78-116 13-27 103-153/39-87 86-100 Intake and Output 04/23/18 04/24/18 04/24/18 21:59 05:59 13:59 Intake Total 170 110 Output Total 241 233 Balance -71 -123 Weight 44.996 kg Intake & Output: Intake & Output 04/23/18 04/24/18 04/24/18 21:59 05:59 13:59 Intake Total 170 110 Output Total 241 233 Balance -71 -123 Weight 44.996 kg Intake: IV 50 50 Zosyn 2.25 gm In Dextrose 5% in 50 50 Water 50 ml @ 100 mls/hr IV Q6H [facility] Rx#:[id number] Oral 120 60 Output: Urine Catheter Amount 241 233 Other: Meal Dinner Percent of Meal Consumed 25% Feeding Ability Needs Supervision Urine Appearance Clear Clear Uretheral (Coulter) Clear Clear Urine Color Bright Yellow Dark Yellow Uretheral (Coulter) Bright Yellow Bright Yellow Urine Odor Normal Stool Size Moderate Smear Stool Color Brown Brown Black Stool Consistency Liquid Loose Loose # of times incontinent of 1 Bowels Exam: General: Alert, Awake, No acute Distress Eyes/N/T: EOMI, Head/Neck: neck supple, CV: RRR, no murmurs Pulm: Diminished breath sounds bilaterally, prolonged expiratory phase, mild b/l wheezing Abd: soft, nontender, +BS x4 Ext: no clubbing/cyanosis/edema Neuro: Alert, no focal deficits, moves all extremities, Skin: warm/dry Medical - PN: Obj Da - Labs CBC & Chem 7: 04/24/18 04:00 04/24/18 04:00 Labs: Abnormal Lab Results 04/24/18 04/24/18 04/23/18 04:00 04:00 03:30 WBC 15.2 H RBC 3.35 L Hgb 9.9 L Hct 29.7 L RDW 18.4 H Plt Count 528 H Gran % 94.5 H Lymph % (Auto) 2.8 L Gran # 14.3 H Lymph # (Auto) 0.4 L Haptoglobin PT INR Chloride Carbon Dioxide 33 H 35 H BUN 30 H 34 H Creatinine 1.2 H Glucose 153 H 173 H Calcium 8.3 L 8.1 L TIBC Unsat Iron Binding Ferritin Alkaline Phosphatase Lactate Dehydrogenase 292 H 290 H Total Protein 4.9 L 5.1 L Albumin 2.3 L 2.4 L Albumin/Globulin Ratio 0.9 L 0.9 L 04/23/18 04/22/18 04/22/18 03:30 09:47 09:47 WBC 17.8 H RBC 3.37 L Hgb 9.8 L Hct 29.6 L RDW 19.0 H Plt Count 493 H Gran % 96.4 H Lymph % (Auto) 2.0 L Gran # 17.1 H Lymph # (Auto) 0.4 L Haptoglobin 404 H PT INR Chloride Carbon Dioxide BUN Creatinine Glucose Calcium TIBC 115 L Unsat Iron Binding 76 L Ferritin 1800.0 H Alkaline Phosphatase Lactate Dehydrogenase Total Protein Albumin Albumin/Globulin Ratio 04/22/18 04/22/18 04/22/18 07:43 03:41 03:40 WBC 25.8 H RBC 2.15 L Hgb 6.9 L* 6.7 L* Hct 21.2 L 20.7 L* RDW Plt Count 509 H Gran % 96.9 H Lymph % (Auto) 1.4 L Gran # 25.0 H Lymph # (Auto) 0.4 L Haptoglobin PT INR Chloride 95 L Carbon Dioxide 32 H BUN 32 H Creatinine 1.2 H Glucose 177 H Calcium 8.3 L TIBC Unsat Iron Binding Ferritin Alkaline Phosphatase 167 H Lactate Dehydrogenase 329 H Total Protein 5.2 L Albumin 2.4 L Albumin/Globulin Ratio 0.9 L 04/21/18 14:48 WBC RBC Hgb Hct RDW Plt Count Gran % Lymph % (Auto) Gran # Lymph # (Auto) Haptoglobin PT 16.2 H INR 1.3 H Chloride Carbon Dioxide BUN Creatinine Glucose Calcium TIBC Unsat Iron Binding Ferritin Alkaline Phosphatase Lactate Dehydrogenase Total Protein Albumin Albumin/Globulin Ratio Meds: Medications Acetaminophen (Tylenol) 650 mg PO Q4-6HP PRN PRN Reason: PAIN/FEVER > 101 Hydrocodone Bitart/Acetaminophen ([place] 7.5/325mg) 1 tab PO Q4HP PRN PRN Reason: Pain Last Admin: 04/23/18 20:31 Dose: 1 tab Documented by: Albuterol/Ipratropium (Duoneb) 3 ml NEB Q4HRT [facility] Last Admin: 04/24/18 07:03 Dose: 3 ml Documented by: Beclomethasone Dipropionate (Qvar 40) 1 puff INH BID [facility] Last Admin: 04/23/18 20:32 Dose: Not Given Documented by: Hydromorphone HCl (Dilaudid) 0.5 - 1 mg IV Q2HP PRN PRN Reason: PAIN LEVEL > 6 Norepinephrine Bitartrate 16 (mg/ Sodium Chloride) 250 mls @ 9.38 mls/hr IV Q24HP PRN; Protocol PRN Reason: Hypotension Piperacillin Sod/Tazobactam (Sod 2.25 gm/ Dextrose) 50 mls @ 100 mls/hr IV Q6H [facility] Last Admin: 04/24/18 05:32 Dose: 100 mls/hr Documented by: Vancomycin HCl 750 mg/ Sodium (Chloride) 250 mls @ 250 mls/hr IV Q24H [facility] Lorazepam (Ativan) 0.5 mg IV Q4HP PRN PRN Reason: ANXIETY/SEDATION Last Admin: 04/21/18 13:40 Dose: 0.5 mg Documented by: Methylprednisolone Sodium Succinate (Solu-Medrol) 30 mg IV Q12 [facility] Last Admin: 04/23/18 20:31 Dose: 30 mg Documented by: Naloxone HCl (Narcan) 0.1 mg IV Q2MIN PRN PRN Reason: Opiate Reversal Olanzapine (Zyprexa) 5 mg IM Q2HP PRN PRN Reason: Anxiety Ondansetron HCl (Zofran) 4 mg IV Q4-6HP PRN PRN Reason: Nausea And Vomiting Oseltamivir Phosphate (Oseltamivir Phosphate) 30 mg PO BID [facility] Last Admin: 04/23/18 20:31 Dose: 30 mg Documented by: Pantoprazole Sodium (Protonix) 40 mg IV BIDAC [facility] Last Admin: 04/23/18 17:17 Dose: 40 mg Documented by: Cyanocobalamin [ Vitamin B12] 5,000 Mcg Tab 1 dose PO DAILY [facility] Last Admin: 04/23/18 08:39 Dose: Not Given Documented by: Sodium Chloride (Saline Flush) 10 ml IV Q8 [facility] Last Admin: 04/24/18 05:32 Dose: 10 ml Documented by: Sodium Chloride (Saline Flush) 10 ml IV UD PRN PRN Reason: FLUSH Sodium Chloride (Saline Flush) 10 ml IV Q12 [facility] Last Admin: 04/23/18 20:32 Dose: 10 ml Documented by: Sodium Chloride (Saline Flush) 10 ml IV Q12 [facility] Last Admin: 04/23/18 20:32 Dose: Not Given Documented by: Vancomycin HCl (Vancomycin Per Pharmacy) 1 order IV UD [facility] Last Admin: 04/20/18 16:32 Dose: Not Given Documented by: Medical - PN: A/P - Time Spent With Patient Total time spent is greater than 50% in coordination of care (as documented) at patient's floor/unit and/or counseling patient: - Narrative A/P Narrative: A: *Acute on chronic respiratory failure: 2/2 copd and mucus plugging -at baseline on 3L oxygen, need prn bipap -CTA no PE, emphysema and pulm fibrosis, mucus plugging RML & lower lobes *AECOPD (3L@home)/pulmonary fibrosis: *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 Results neg so far. Also on tamiflu (flu neg) given high prevalence -IV steroids(wean) for now, on bronchodilators, continue same. -IS/Acapella, CPT -hold ASA -GI following - -pain mgmnt, rehab -pt/ot -ppx: SCD (lovenox held for GI bleed)/ppi Medical - PN: Qual - VTE Deep Vein Thrombosis/Pulmonary Embolism Present on Admission: No
[2018-04-24] MEDS ORDERED: ALBUTEROL SULFATE 2.5 MG/3 ML NEBULIZER NEB PRN (09:06)
[2018-04-24] MEDS: BECLOMETHASONE DIPROPIONATE 40MCG INHALER INH SCH ×2 (11:36→22:11)
[2018-04-24] MEDS: VANCOMYCIN 750 MG in 0.9 % SODIUM CHLORIDE 250 ML IV SCH (11:37)
[2018-04-24] MEDS: OSELTAMIVIR PHOSPHATE 6 MG/ML BOTTLE PO SCH ×2 (11:37→22:09)
[2018-04-24] MEDS: CYANOCOBALAMIN 5000 MCG PO SCH (11:37)
[2018-04-24] MEDS: methylPREDNISolone SOD SUCC 125 MG/2 ML VIAL IV SCH (11:38)
[2018-04-24] MEDS: LEVALBUTEROL 0.63 MG/3 ML AMPUL.NEB NEB PRN (12:10)
[2018-04-24] MEDS: LEVALBUTEROL TARTRATE 45 MCG INH PRN (16:26)
[2018-04-24] MEDS: HYDROCODONE/APAP 7.5/325MG TABLET PO PRN (17:49)
[2018-04-24] MEDS ORDERED: methylPREDNISolone SOD SUCC 40 MG/ML VIAL IV SCH (21:00)
[2018-04-24] MEDS: LORazepam 2 MG/ML VIAL IV PRN (22:09)
[2018-04-25] MEDS: PIPERACILLIN SODIUM/TAZOBACTAM 2.25 GM in DEXTROSE 5% IN WATER 50 ML IV SCH ×4 (00:18→17:33)
[2018-04-25 05:16] LABS: Basophils # (Auto) 0 K/mcL (0.0-0.3); Basophils % (Auto) 0 % (0.0-2.0); Eosinophils # (Auto) 0 K/mcL (0.0-0.7); Eosinophils % (Auto) 0.1 % (0.0-7.0); Granulocytes % (Auto) 90.7 % (38.0-78.0); Lymphocytes # (Auto) 0.8 K/mcL (1.5-4.8); Lymphocytes % (Auto) 5.3 % (15.5-49.0); Mean Cell Volume 88.7 fL (80.0-100.0); Mean Corpuscular HGB Conc 32.9 g/dL (31.0-36.0); Monocytes # (Auto) 0.6 K/mcL (0.1-0.9); Monocytes % (Auto) 3.9 % (1.0-12.0); Platelet Count 525 K/mcL (140-440); RBC 3.44 M/mcL (4.00-5.20); Red Cell Distribution Width 17.4 % (11.5-14.5)
[2018-04-25] MEDS: 0.9 % SODIUM CHLORIDE 10 ML SYRINGE IV SCH ×7 (05:44→21:18)
[2018-04-25 05:48] LABS: ALT/SGPT 21 U/l (0-40); Albumin 2.5 gm/dL (3.2-5.2); Alkaline Phosphatase 78 U/L (39-117); Bilirubin,Direct < 0.2 mg/dL (0.0-0.3); Blood Urea Nitrogen 23 mg/dl (8-23); Gamma Glutamyl Transpeptidase 27 U/L (5-36); Uric Acid 3.4 mg/dL (2.5-8.0)
[2018-04-25] MEDS: PANTOPRAZOLE 40 MG VIAL IV SCH ×2 (07:40→17:00)
--- NOTE | 2018-04-25 07:43 | Internal Med Progress Note ---
Medical - PN: Subj Patient information: Note initiated : 04/25/18 at 7:32 am Service Date, if different from initiated Date: [] Patient: Shari Rice 82 y/o F admitted on 04/20/18 for hypoxic. Chief Complaint: [] Interval history: ms. Rice is a 82 year old F with history of pulmonary fibrosis, COPD presents to the hospital from a [facility] for evaluation of shortness of breath. On my evaluation patient was on BiPAP, eating 100% oxygen to maintain her oxygen saturation more than 95%. She noted that she has not been feeling well for the last 3-4 days. Short of breath and cough. Unable to provide much history due to acuity of medical condition. History obtained from talking to family as well as chart review. The patient was admitted on 12 April at [facility] after a fall. The patient developed a maxillary fracture, radius ulna fracture and hip fracture. The patient hip fracture was fixed and the patient was discharged to [facility] for further rehab. The hospital stay it seems was complicated with a pneumonia. Patient was discharged with p.o. levofloxacin. The patient condition probably worsened at the rehab center, this morning it was noted by the [facility] staff that the patient was hypoxic needing more than 6 L of oxygen to keep her oxygen levels more than 90. Patient was therefore sent to the emergency room for further evaluation. The patient was also tachyc ardic tachypneic and febrile. On presentation to the emergency room patient was febrile with a temperature of 101.7, tachycardic heart rate 122 blood pressure 115/61 tachypneic respiratory rate between 30-35 and saturating 87% despite being 100% FiO2 on a nonrebreather. Patient was subsequently placed on a BiPAP. Labs show a WBC count of 23,700 hemoglobin 9.2, 24% bands platelets 546 lactic acid 1.2 Sodium is 130 potassium is 3.8 bicarbonate is 31 creatinine is 1.0 glucose is 187. ABG shows pH of 7.52 PCO2 49 PO2 48 on a nonrebreather Chest x-ray shows bilateral pneumonia left greater than right bilateral effusion left greater than right underlying pulmonary fibrosis. EKG done shows sinus tachycardia nonspecific ST wave changes in the lateral leads and poor R wave progression Patient is being admitted to the ICU for further management, I have reviewed with the patient's family, her sons in the emergency room with regards to overall poor prognosis of this patient given the severity of illness. They verbalized understanding. They are okay with BiPAP, central line and pressors but did not want CPR or intubation. 04/21 Patient seen examined, no acute overnight issues, pt still on bipap this AM, but did not want to be on it, we have placed her on hiflo oxygen. X ray shows persistent left pleural effusion and pneumonia. CTA planned by ER was not done, started pt on therapeutic anticoagulation She needs thoracocentesis for further evaluation of left pleural effusion She also has poor iv access, unable to place picc, will need central line. Initially she was refusing care this am, wanting to talk with her family, after a discussion with family she did agree, patient remains critically ill.Flu is neg, but given high prevelance will complete course for 5 days. 04/22 Pt seen examined, CTA neg for PE, Pt had drop in her Hb from 8.7 to 6.7, pt had no obvious source of bleed, CT abdomen is negative for any retroperitoneal bleed, but did note a 6 cm subcutaneous hematoma on the left hip site. GI consulted. Ok to intubate for EGD if necessary, pt is presently on NRB and saturating well Pt had thoracocentesis yesterday, 400cc fluid removed, appears transudative in nature. 04/23 Patient seen examined, no acute overnight issues, pt remains on bipap, ABG this AM 7.42//86 Pt to be given trial off bipap, wean off bipap as tolerated Oral feeds to resume after EGD Hb stable, plan EGD this PM by Dr Tracy, with help of anesthesia. 04/24 no bipap required o/n, on nasal cannula at 5 L. With sats 94. Has occasional cough. And shortness of breath which she says is improved with Xopenex. 04/25 Patient states poor sleep last night. Up in the chair this morning. Complains of being cold. Has cough but she is unable to cough out sputum. She has shortness of breath. Diarrhea reported last night. BC from 04/20 with coag neg staph deemed contaminant. Review of Systems: denies headache/fever/nausea/vomiting/chest or abdominal pain. Otherwise see above. - Constitutional Vitals: Vital Signs Temp Pulse Resp BP Pulse Ox 98.3 F 77 14 138/56 95 04/25/18 07:22 04/25/18 07:22 04/25/18 07:22 04/25/18 07:01 04/25/18 07:22 Period Temp Pulse Resp BP Sys/Marcus Pulse Ox Last 24 Hr 98.0 F-99.3 F 66-111 13-29 116-169/45-106 87-100 Intake and Output 04/24/18 04/25/18 04/25/18 21:59 05:59 13:59 Intake Total 905 50 45 Output Total 350 335 45 Balance 555 -285 0 Weight 46.584 kg Intake & Output: Intake & Output 04/24/18 04/25/18 04/25/18 21:59 05:59 13:59 Intake Total 905 50 45 Output Total 350 335 45 Balance 555 -285 0 Weight 46.584 kg Intake: IV 855 50 45 Zosyn 2.25 gm In Dextrose 5% in 95 50 45 Water 50 ml @ 100 mls/hr IV Q6H [facility] Rx#:[id number] Vancomycin 750 mg In Sodium 250 Chloride 0.9% 250 ml @ 250 mls/ hr IV Q24H [facility] Rx#:[id number] Oral 50 Output: Urine Catheter Amount 350 335 45 Other: Urine Appearance Clear Clear Uretheral (Coulter) Clear Clear Urine Color Bright Yellow Dark Yellow Uretheral (Coulter) Bright Yellow Bright Yellow Exam: General: Alert, Awake, No acute Distress Eyes/N/T: EOMI, Head/Neck: neck supple, CV: RRR, no murmurs Pulm: Diminished breath sounds b/l, prolonged expiratory phase, mild b/l wheezing unchanged Abd: soft, nontender, +BS x4 Ext: no clubbing/cyanosis/edema Neuro: Alert, no focal deficits, moves all extremities, Skin: warm/dry Medical - PN: Obj Da - Labs CBC & Chem 7: 04/25/18 04:00 04/25/18 04:00 Labs: Abnormal Lab Results 04/25/18 04/25/18 04/24/18 04:00 04:00 04:00 WBC 14.5 H RBC 3.44 L Hgb 10.0 L Hct 30.5 L RDW 17.4 H Plt Count 525 H MPV 7.3 L Gran % 90.7 H Lymph % (Auto) 5.3 L Gran # 13.2 H Lymph # (Auto) 0.8 L Haptoglobin Carbon Dioxide 34 H 33 H BUN 30 H Creatinine Glucose 153 H Calcium 8.3 L 8.3 L Phosphorus 2.3 L TIBC Unsat Iron Binding Ferritin Lactate Dehydrogenase 292 H 292 H Total Protein 4.9 L 4.9 L Albumin 2.5 L 2.3 L Albumin/Globulin Ratio 0.9 L Triglycerides 184 H 04/24/18 04/23/18 04/23/18 04:00 03:30 03:30 WBC 15.2 H 17.8 H RBC 3.35 L 3.37 L Hgb 9.9 L 9.8 L Hct 29.7 L 29.6 L RDW 18.4 H 19.0 H Plt Count 528 H 493 H MPV Gran % 94.5 H 96.4 H Lymph % (Auto) 2.8 L 2.0 L Gran # 14.3 H 17.1 H Lymph # (Auto) 0.4 L 0.4 L Haptoglobin Carbon Dioxide 35 H BUN 34 H Creatinine 1.2 H Glucose 173 H Calcium 8.1 L Phosphorus TIBC Unsat Iron Binding Ferritin Lactate Dehydrogenase 290 H Total Protein 5.1 L Albumin 2.4 L Albumin/Globulin Ratio 0.9 L Triglycerides 04/22/18 04/22/18 04/22/18 09:47 09:47 07:43 WBC RBC Hgb 6.9 L* Hct 21.2 L RDW Plt Count MPV Gran % Lymph % (Auto) Gran # Lymph # (Auto) Haptoglobin 404 H Carbon Dioxide BUN Creatinine Glucose Calcium Phosphorus TIBC 115 L Unsat Iron Binding 76 L Ferritin 1800.0 H Lactate Dehydrogenase Total Protein Albumin Albumin/Globulin Ratio Triglycerides Meds: Medications Acetaminophen (Tylenol) 650 mg PO Q4-6HP PRN PRN Reason: PAIN/FEVER > 101 Hydrocodone Bitart/Acetaminophen ([place] 7.5/325mg) 1 tab PO Q4HP PRN PRN Reason: Pain Last Admin: 04/24/18 17:49 Dose: 1 tab Documented by: Albuterol Sulfate (Ventolin) 2.5 mg NEB Q2HP PRN PRN Reason: Shortness Of Breath Or Wheezing Albuterol/Ipratropium (Duoneb) 3 ml NEB TID [facility] Last Admin: 04/24/18 20:20 Dose: 3 ml Documented by: Beclomethasone Dipropionate (Qvar 40) 1 puff INH BID [facility] Last Admin: 04/24/18 22:11 Dose: Not Given Documented by: Hydromorphone HCl (Dilaudid) 0.5 - 1 mg IV Q2HP PRN PRN Reason: PAIN LEVEL > 6 Piperacillin Sod/Tazobactam (Sod 2.25 gm/ Dextrose) 50 mls @ 100 mls/hr IV Q6H [facility] Last Infusion: 04/25/18 06:10 Dose: 0 mls/hr Documented by: Vancomycin HCl 750 mg/ Sodium (Chloride) 250 mls @ 250 mls/hr IV Q24H [facility] Last Infusion: 04/24/18 15:19 Dose: Infused Documented by: Levalbuterol HCl (Xopenex) 0.63 mg NEB Q4HP PRN PRN Reason: Shortness Of Breath Last Admin: 04/24/18 12:10 Dose: 0.63 mg Documented by: Lorazepam (Ativan) 0.5 mg IV Q4HP PRN PRN Reason: ANXIETY/SEDATION Last Admin: 04/24/18 22:09 Dose: 0.5 mg Documented by: Methylprednisolone Sodium Succinate (Solu-Medrol) 30 mg IV Q12 [facility] Last Admin: 04/24/18 22:12 Dose: Not Given Documented by: Naloxone HCl (Narcan) 0.1 mg IV Q2MIN PRN PRN Reason: Opiate Reversal Olanzapine (Zyprexa) 5 mg IM Q2HP PRN PRN Reason: Anxiety Ondansetron HCl (Zofran) 4 mg IV Q4-6HP PRN PRN Reason: Nausea And Vomiting Oseltamivir Phosphate (Oseltamivir Phosphate) 30 mg PO BID [facility] Last Admin: 04/24/18 22:09 Dose: 30 mg Documented by: Pantoprazole Sodium (Protonix) 40 mg IV BIDAC [facility] Last Admin: 04/24/18 16:56 Dose: 40 mg Documented by: Cyanocobalamin [ Vitamin B12] 5,000 Mcg Tab 1 dose PO DAILY [facility] Last Admin: 04/24/18 11:37 Dose: Not Given Documented by: Levalbuterol Tartrate (Xopenex) 45 Mcg Inhaler 2 dose INH Q4HP PRN PRN Reason: Shortness Of Breath Last Admin: 04/24/18 16:26 Dose: 2 dose Documented by: Sodium Chloride (Saline Flush) 10 ml IV Q8 [facility] Last Admin: 04/25/18 05:44 Dose: 10 ml Documented by: Sodium Chloride (Saline Flush) 10 ml IV UD PRN PRN Reason: FLUSH Sodium Chloride (Saline Flush) 10 ml IV Q12 [facility] Last Admin: 04/24/18 22:11 Dose: 10 ml Documented by: Sodium Chloride (Saline Flush) 10 ml IV Q12 [facility] Last Admin: 04/24/18 22:11 Dose: Not Given Documented by: Vancomycin HCl (Vancomycin Per Pharmacy) 1 order IV UD [facility] Last Admin: 04/20/18 16:32 Dose: Not Given Documented by: Medical - PN: A/P - Time Spent With Patient Total time spent is greater than 50% in coordination of care (as documented) at patient's floor/unit and/or counseling patient: - Narrative A/P Narrative: A: *Acute on chronic hypoxic respiratory failure: 2/2 copd and mucus plugging -prn bipap, last used 04/23 -CTA no PE, emphysema and pulm fibrosis, mucus plugging RML & lower lobes -on 6L NC but sats 95-100 *PNA: leukocytosis slowly improving *AECOPD (3L@home)/pulmonary fibrosis: *Pleural effusion: s/p thoracocentesis (04/21) 400cc, transudative in nature *Acute blood loss anemia on chronic: 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 Results neg so far. Also on tamiflu (flu neg) given high prevalence -IV steroids(wean) for now, on bronchodilators, continue same. -IS/Acapella, unable to do CPT given recent fractures -hold ASA -GI following -f/u CXR -pain mgmnt, rehab -pt/ot -f/u outpt with ENT as previously scheduled -ppx: SCD (lovenox held for GI bleed)/ppi Medical - PN: Qual - VTE Deep Vein Thrombosis/Pulmonary Embolism Present on Admission: No
[2018-04-25] MEDS: VANCOMYCIN 750 MG in 0.9 % SODIUM CHLORIDE 250 ML IV SCH (09:11)
[2018-04-25] MEDS: methylPREDNISolone SOD SUCC 40 MG/ML VIAL IV SCH ×2 (09:11→21:16)
[2018-04-25] MEDS: IPRATROPIUM/ALBUTEROL 3 ML AMPUL.NEB NEB SCH ×3 (09:11→20:05)
[2018-04-25] MEDS: OSELTAMIVIR PHOSPHATE 6 MG/ML BOTTLE PO SCH ×2 (09:11→21:18)
[2018-04-25] MEDS: BECLOMETHASONE DIPROPIONATE 40MCG INHALER INH SCH ×2 (09:12→21:18)
[2018-04-25] MEDS: CYANOCOBALAMIN 5000 MCG PO SCH (09:13)
[2018-04-25] MEDS: LEVALBUTEROL TARTRATE 45 MCG INH PRN (09:13)
[2018-04-25 09:34] LABS: Anisocytosis 1+ (NONE SEEN); Band Neutrophils % 1 % (0-10); Lymphocytes % 7 % (15-49); Monocytes % (Manual) 5 % (1-12); Platelet Estimate INCREASED (NORMAL); RBC Morphology ABNORM (NORMAL); Segmented Neutrophils % 87 % (38-78)
[2018-04-25] MEDS ORDERED: ALBUMIN HUMAN 12.5 GM/50 ML BAG IV ONE ×2 (10:07→18:00)
[2018-04-25] MEDS ORDERED: FUROSEMIDE 20 MG/2 ML VIAL IV ONE ×2 (10:07→18:00)
[2018-04-25 10:58] LABS: Hemoglobin A1C 6.2 % HGB (4.0-6.0)
--- NOTE | 2018-04-25 13:32 | XRay Report ---
HISTORY: Hypoxia and pulmonary infiltrate There is a moderate size consolidating infiltrate in the left lower lobe with a smaller infiltrate in the right lung base. Superimposed upon this are small bilateral pleural effusions. These have become significantly worse since the chest CT done on 04/21/18. Prominent increased interstitial lung markings are present in both upper lobes which could be due to pulmonary vascular congestion or inflammation. The heart is not abnormally enlarged. Right internal jugular catheter is well-positioned and there is no pneumothorax. IMPRESSION: Worsening bilateral infiltrates which may be a combination of pneumonia and atelectasis. Superimposed pulmonary vascular congestion is not excluded. Small but enlarging bilateral pleural effusions Interpreted and Authenticated by: Santy Baker 04/25/18
[2018-04-25] MEDS ORDERED: ALTEPLASE 2 MG VIAL IV ONE (16:00)
[2018-04-25] MEDS ORDERED: LOPERAMIDE 2 MG CAPSULE PO PRN (18:12)
[2018-04-25] MEDS: LACTOBACILLUS 1 CAPSULE PO SCH (21:17)
[2018-04-25] MEDS: LEVALBUTEROL 0.63 MG/3 ML AMPUL.NEB NEB PRN (22:30)
[2018-04-26] MEDS: PIPERACILLIN SODIUM/TAZOBACTAM 2.25 GM in DEXTROSE 5% IN WATER 50 ML IV SCH ×4 (00:14→18:13)
[2018-04-26] MEDS: 0.9 % SODIUM CHLORIDE 10 ML SYRINGE IV SCH ×7 (05:18→23:06)
[2018-04-26 05:21] LABS: Basophils # (Auto) 0 K/mcL (0.0-0.3); Basophils % (Auto) 0 % (0.0-2.0); Eosinophils # (Auto) 0 K/mcL (0.0-0.7); Eosinophils % (Auto) 0 % (0.0-7.0); Granulocytes % (Auto) 95.8 % (38.0-78.0); Lymphocytes # (Auto) 0.4 K/mcL (1.5-4.8); Lymphocytes % (Auto) 2.5 % (15.5-49.0); Mean Cell Volume 88.6 fL (80.0-100.0); Mean Corpuscular HGB Conc 32.8 g/dL (31.0-36.0); Monocytes # (Auto) 0.2 K/mcL (0.1-0.9); Monocytes % (Auto) 1.7 % (1.0-12.0); Platelet Count 549 K/mcL (140-440); RBC 3.69 M/mcL (4.00-5.20); Red Cell Distribution Width 17.2 % (11.5-14.5)
[2018-04-26 05:39] LABS: ALT/SGPT 21 U/l (0-40); Albumin 3.3 gm/dL (3.2-5.2); Albumin/Globulin Ratio 1.3 (1.0-2.3); Alkaline Phosphatase 84 U/L (39-117); Bilirubin,Direct < 0.2 mg/dL (0.0-0.3); Blood Urea Nitrogen 20 mg/dl (8-23); Gamma Glutamyl Transpeptidase 27 U/L (5-36); Uric Acid 3.9 mg/dL (2.5-8.0)
[2018-04-26] MEDS: LEVALBUTEROL 0.63 MG/3 ML AMPUL.NEB NEB PRN (05:52)
[2018-04-26] MEDS ORDERED: POTASSIUM CHLORIDE 20 MEQ TABLET PO ONE (07:23)
[2018-04-26] MEDS ORDERED: acetaZOLAMIDE SOD 500 MG VIAL IV ONE (07:23)
--- NOTE | 2018-04-26 07:26 | Internal Med Progress Note ---
Medical - PN: Subj Patient information: Note initiated : 04/26/18 at 7:17 am Service Date, if different from initiated Date: [] Patient: Shari Rice 82 y/o F admitted on 04/20/18 for hypoxic. Chief Complaint: [] Interval history: ms. Rice is a 82 year old F with history of pulmonary fibrosis, COPD presents to the hospital from a skilled nursing for evaluation of shortness of breath. On my evaluation patient was on BiPAP, eating 100% oxygen to maintain her oxygen saturation more than 95%. She noted that she has not been feeling well for the last 3-4 days. Short of breath and cough. Unable to provide much history due to acuity of medical condition. History obtained from talking to family as well as chart review. The patient was admitted on 12 April at [facility] after a fall. The patient developed a maxillary fracture, radius ulna fracture and hip fracture. The patient hip fracture was fixed and the patient was discharged to skilled nursing for further rehab. The hospital stay it seems was complicated with a pneumonia. Patient was discharged with p.o. levofloxacin. The patient condition probably worsened at the rehab center, this morning it was noted by the skilled nursing staff that the patient was hypoxic needing more than 6 L of oxygen to keep her oxygen levels more than 90. Patient was therefore sent to the emergency room for further evaluation. The patient was also tachyc ardic tachypneic and febrile. On presentation to the emergency room patient was febrile with a temperature of 101.7, tachycardic heart rate 122 blood pressure 115/61 tachypneic respiratory rate between 30-35 and saturating 87% despite being 100% FiO2 on a nonrebreather. Patient was subsequently placed on a BiPAP. Labs show a WBC count of 23,700 hemoglobin 9.2, 24% bands platelets 546 lactic acid 1.2 Sodium is 130 potassium is 3.8 bicarbonate is 31 creatinine is 1.0 glucose is 187. ABG shows pH of 7.52 PCO2 49 PO2 48 on a nonrebreather Chest x-ray shows bilateral pneumonia left greater than right bilateral effusion left greater than right underlying pulmonary fibrosis. EKG done shows sinus tachycardia nonspecific ST wave changes in the lateral leads and poor R wave progression Patient is being admitted to the ICU for further management, I have reviewed with the patient's family, her sons in the emergency room with regards to overall poor prognosis of this patient given the severity of illness. They verbalized understanding. They are okay with BiPAP, central line and pressors but did not want CPR or intubation. 04/21 Patient seen examined, no acute overnight issues, pt still on bipap this AM, but did not want to be on it, we have placed her on hiflo oxygen. X ray shows persistent left pleural effusion and pneumonia. CTA planned by ER was not done, started pt on therapeutic anticoagulation She needs thoracocentesis for further evaluation of left pleural effusion She also has poor iv access, unable to place picc, will need central line. Initially she was refusing care this am, wanting to talk with her family, after a discussion with family she did agree, patient remains critically ill.Flu is neg, but given high prevelance will complete course for 5 days. 04/22 Pt seen examined, CTA neg for PE, Pt had drop in her Hb from 8.7 to 6.7, pt had no obvious source of bleed, CT abdomen is negative for any retroperitoneal bleed, but did note a 6 cm subcutaneous hematoma on the left hip site. GI consulted. Ok to intubate for EGD if necessary, pt is presently on NRB and saturating well Pt had thoracocentesis yesterday, 400cc fluid removed, appears transudative in nature. 04/23 Patient seen examined, no acute overnight issues, pt remains on bipap, ABG this AM 7.42//86 Pt to be given trial off bipap, wean off bipap as tolerated Oral feeds to resume after EGD Hb stable, plan EGD this PM by Dr Tracy, with help of anesthesia. 04/24 no bipap required o/n, on nasal cannula at 5 L. With sats 94. Has occasional cough. And shortness of breath which she says is improved with Xopenex. 04/25 Patient states poor sleep last night. Up in the chair this morning. Complains of being cold. Has cough but she is unable to cough out sputum. She has shortness of breath. Diarrhea reported last night. BC from 04/20 with coag neg staph deemed contaminant. 04/26 Center on 8 L overnight. During the day in bed nurse that we get her down to 2 L. She had great urine output yesterday. After several doses of Lasix Nurse reports that the sputum this morning was frothy. Patient moved to the chair. Patient overall feels better. Review of Systems: denies headache/fever/nausea/vomiting/chest or abdominal pain. Otherwise see above. - Constitutional Vitals: Vital Signs Temp Pulse Resp BP Pulse Ox 98.9 F 87 21 130/53 93 04/26/18 07:01 04/26/18 07:01 04/26/18 07:01 04/26/18 07:01 04/26/18 07:01 Period Temp Pulse Resp BP Sys/Marcus Pulse Ox Last 24 Hr 98.3 F-99.6 F 77-106 14-29 112-147/45-112 85-99 Intake and Output 04/25/18 04/26/18 04/26/18 21:59 05:59 13:59 Intake Total 310 350 Output Total 2351 1040 25 Balance -2040 -690 -25 Weight 41.504 kg Intake & Output: Intake & Output 04/25/18 04/26/18 04/26/18 21:59 05:59 13:59 Intake Total 310 350 Output Total 2351 1040 25 Balance -2040 -690 -25 Weight 41.504 kg Intake: IV 50 50 Zosyn 2.25 gm In Dextrose 5% in 50 50 Water 50 ml @ 100 mls/hr IV Q6H [facility] Rx#:[id number] Oral 260 300 Output: Urine Catheter Amount 2350 1040 25 # of times incontinent of urine 1 Other: Urine Appearance Clear Clear Uretheral (Coulter) Clear Clear Urine Color Pale Dark Yellow Uretheral (Coulter) Pale Pale Stool Size Large Small Stool Color Green Green Stool Consistency Liquid # of times incontinent of 1 Bowels Exam: General: Alert, Awake, No acute Distress Eyes/N/T: EOMI, Head/Neck: neck supple, CV: RRR, no murmurs Pulm: Diminished breath sounds b/l, prolonged expiratory phase, no wheezing. very shallow and diminished unable to appreciate rales Abd: soft, nontender, +BS x4 Ext: no clubbing/cyanosis/edema Neuro: Alert, no focal deficits, moves all extremities, Skin: warm/dry Medical - PN: Obj Da - Labs CBC & Chem 7: 04/26/18 04:00 04/26/18 04:00 Labs: Abnormal Lab Results 04/26/18 04/26/1804/25/19 04:00 04:00 04:00 WBC 14.1 H RBC 3.69 L Hgb 10.7 L Hct 32.6 L RDW 17.2 H Plt Count 549 H MPV Gran % 95.8 H Lymph % (Auto) 2.5 L Gran # 13.5 H Lymph # (Auto) 0.4 L Seg Neutrophils % Lymphocytes % RBC Morphology Anisocytosis Potassium 3.1 L Chloride 91 L Carbon Dioxide 40 H Anion Gap 7.0 L BUN Glucose 154 H Hemoglobin A1c 6.2 H Calcium Phosphorus 2.4 L Lactate Dehydrogenase 299 H Total Protein Albumin Albumin/Globulin Ratio Triglycerides 154 H 04/25/18 04/25/18 04/25/18 04:00 04:00 04:00 WBC 14.5 H RBC 3.44 L Hgb 10.0 L Hct 30.5 L RDW 17.4 H Plt Count 525 H MPV 7.3 L Gran % 90.7 H Lymph % (Auto) 5.3 L Gran # 13.2 H Lymph # (Auto) 0.8 L Seg Neutrophils % 87 H Lymphocytes % 7 L RBC Morphology Abnorm A Anisocytosis 1+ A Potassium Chloride Carbon Dioxide 34 H Anion Gap BUN Glucose Hemoglobin A1c Calcium 8.3 L Phosphorus 2.3 L Lactate Dehydrogenase 292 H Total Protein 4.9 L Albumin 2.5 L Albumin/Globulin Ratio Triglycerides 184 H 04/24/18 04/24/18 04:00 04:00 WBC 15.2 H RBC 3.35 L Hgb 9.9 L Hct 29.7 L RDW 18.4 H Plt Count 528 H MPV Gran % 94.5 H Lymph % (Auto) 2.8 L Gran # 14.3 H Lymph # (Auto) 0.4 L Seg Neutrophils % Lymphocytes % RBC Morphology Anisocytosis Potassium Chloride Carbon Dioxide 33 H Anion Gap BUN 30 H Glucose 153 H Hemoglobin A1c Calcium 8.3 L Phosphorus Lactate Dehydrogenase 292 H Total Protein 4.9 L Albumin 2.3 L Albumin/Globulin Ratio 0.9 L Triglycerides Meds: Medications Acetaminophen (Tylenol) 650 mg PO Q4-6HP PRN PRN Reason: PAIN/FEVER > 101 Hydrocodone Bitart/Acetaminophen ([place] 7.5/325mg) 1 tab PO Q4HP PRN PRN Reason: Pain Last Admin: 04/24/18 17:49 Dose: 1 tab Documented by: Albuterol Sulfate (Ventolin) 2.5 mg NEB Q2HP PRN PRN Reason: Shortness Of Breath Or Wheezing Albuterol/Ipratropium (Duoneb) 3 ml NEB TID [facility] Last Admin: 04/25/18 20:05 Dose: 3 ml Documented by: Beclomethasone Dipropionate (Qvar 40) 1 puff INH BID [facility] Last Admin: 04/25/18 21:18 Dose: 1 puff Documented by: Hydromorphone HCl (Dilaudid) 0.5 - 1 mg IV Q2HP PRN PRN Reason: PAIN LEVEL > 6 Piperacillin Sod/Tazobactam (Sod 2.25 gm/ Dextrose) 50 mls @ 100 mls/hr IV Q6H [facility] Last Admin: 04/26/18 05:17 Dose: 50 mls/hr Documented by: Vancomycin HCl 750 mg/ Sodium (Chloride) 250 mls @ 250 mls/hr IV Q24H [facility] Last Infusion: 04/25/18 10:20 Dose: Infused Documented by: Lactobacillus Rhamnosus (Culturelle) 1 cap PO BID [facility] Last Admin: 04/25/18 21:17 Dose: 1 cap Documented by: Levalbuterol HCl (Xopenex) 0.63 mg NEB Q4HP PRN PRN Reason: Shortness Of Breath Last Admin: 04/26/18 05:52 Dose: 0.63 mg Documented by: Loperamide HCl (Imodium) 2 mg PO PRN PRN PRN Reason: Diarrhea Lorazepam (Ativan) 0.5 mg IV Q4HP PRN PRN Reason: ANXIETY/SEDATION Last Admin: 04/24/18 22:09 Dose: 0.5 mg Documented by: Methylprednisolone Sodium Succinate (Solu-Medrol) 20 mg IV Q12 [facility] Last Admin: 04/25/18 21:16 Dose: 20 mg Documented by: Naloxone HCl (Narcan) 0.1 mg IV Q2MIN PRN PRN Reason: Opiate Reversal Olanzapine (Zyprexa) 5 mg IM Q2HP PRN PRN Reason: Anxiety Ondansetron HCl (Zofran) 4 mg IV Q4-6HP PRN PRN Reason: Nausea And Vomiting Oseltamivir Phosphate (Oseltamivir Phosphate) 30 mg PO BID [facility] Last Admin: 04/25/18 21:18 Dose: 30 mg Documented by: Pantoprazole Sodium (Protonix) 40 mg IV BIDAC [facility] Last Admin: 04/25/18 17:00 Dose: 40 mg Documented by: Cyanocobalamin [ Vitamin B12] 5,000 Mcg Tab 1 dose PO DAILY [facility] Last Admin: 04/25/18 09:13 Dose: Not Given Documented by: Levalbuterol Tartrate (Xopenex) 45 Mcg Inhaler 2 dose INH Q4HP PRN PRN Reason: Shortness Of Breath Last Admin: 04/25/18 09:13 Dose: 2 dose Documented by: Sodium Chloride (Saline Flush) 10 ml IV Q8 [facility] Last Admin: 04/26/18 05:18 Dose: 10 ml Documented by: Sodium Chloride (Saline Flush) 10 ml IV UD PRN PRN Reason: FLUSH Sodium Chloride (Saline Flush) 10 ml IV Q12 [facility] Last Admin: 04/25/18 21:18 Dose: Not Given Documented by: Sodium Chloride (Saline Flush) 10 ml IV Q12 [facility] Last Admin: 04/25/18 21:18 Dose: Not Given Documented by: Vancomycin HCl (Vancomycin Per Pharmacy) 1 order IV UD [facility] Last Admin: 04/20/18 16:32 Dose: Not Given Documented by: Medical - PN: A/P - Time Spent With Patient Total time spent is greater than 50% in coordination of care (as documented) at patient's floor/unit and/or counseling patient: - Narrative A/P Narrative: A: *Acute on chronic hypoxic respiratory failure: 2/2 copd and mucus plugging -prn bipap, last used 04/23 -CTA no PE, emphysema and pulm fibrosis, mucus plugging RML & lower lobes -diuresed quite a bit yesterday with lasix, but no improvement in O2 requirement, at least o/n -on 6L NC *PNA: leukocytosis slowly improving -SC neg, only rhinovirus on resp panel *AECOPD (3L@home)/pulmonary fibrosis: *met alkalosis: 2/2 copd *Pleural effusion: s/p thoracocentesis (04/21) 400cc, transudative in nature *Acute 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 -IS/Acapella, unable to do CPT given recent fractures -hold ASA -evaluated by GI, underwen EGD -f/u CXR -pain mgmnt, rehab -pt/ot -f/u outpt with ENT as previously scheduled -ppx: SCD (lovenox held for GI bleed and hematoma)/ppi Medical - PN: Qual - VTE Deep Vein Thrombosis/Pulmonary Embolism Present on Admission: No
[2018-04-26] MEDS ORDERED: guaiFENesin 600 MG TAB.SR.12H PO ONE (08:00)
[2018-04-26] MEDS: PANTOPRAZOLE 40 MG VIAL IV SCH ×2 (08:31→16:32)
[2018-04-26] MEDS ORDERED: ALTEPLASE 2 MG VIAL IV ONE ×2 (08:52→08:54)
[2018-04-26] MEDS: CYANOCOBALAMIN 5000 MCG PO SCH (09:33)
[2018-04-26] MEDS: LACTOBACILLUS 1 CAPSULE PO SCH ×2 (09:42→21:46)
[2018-04-26] MEDS: methylPREDNISolone SOD SUCC 40 MG/ML VIAL IV SCH (09:43)
[2018-04-26] MEDS: IPRATROPIUM/ALBUTEROL 3 ML AMPUL.NEB NEB SCH ×3 (09:45→20:13)
--- NOTE | 2018-04-26 10:14 | XRay Report ---
HISTORY: Hypoxia, Follow-up pulmonary infiltrates FINDINGS: There are moderate generalized infiltrates in both lungs with the greatest consolidation in both lower lobes. This is superimposed upon underlying COPD and pulmonary fibrosis. Small bilateral layering pleural effusions are present. The heart size is relatively small. The pulmonary vessels cannot be evaluated due to the diffuse pulmonary disease. The internal jugular line remains well-positioned. There is no pneumothorax. Comparison with the prior exam from 04/25/18 shows mild improvement in the left lower lobe. IMPRESSION: Widespread bilateral pulmonary infiltrates with mild improvement in the left lower lobe Interpreted and Authenticated by: Santy Baker 04/26/18
[2018-04-26] MEDS: LEVALBUTEROL TARTRATE 45 MCG INH PRN ×3 (10:17→15:45)
[2018-04-26] MEDS: VANCOMYCIN 750 MG in 0.9 % SODIUM CHLORIDE 250 ML IV SCH (10:17)
[2018-04-26] MEDS: BECLOMETHASONE DIPROPIONATE 40MCG INHALER INH SCH ×2 (10:19→21:47)
[2018-04-26] MEDS: OSELTAMIVIR PHOSPHATE 6 MG/ML BOTTLE PO SCH (10:42)
[2018-04-26] MEDS ORDERED: LORazepam 2 MG/ML VIAL IV PRN (11:20)
[2018-04-26] MEDS ORDERED: NALOXONE HCL 0.4 MG/ML VIAL IV PRN (11:20)
[2018-04-26] MEDS ORDERED: HYDROCODONE/APAP 7.5/325MG TABLET PO PRN (11:20)
[2018-04-26] MEDS ORDERED: ONDANSETRON 4 MG/2 ML VIAL IV PRN (11:20)
[2018-04-26] MEDS ORDERED: LOPERAMIDE 2 MG CAPSULE PO PRN (11:20)
[2018-04-26] MEDS ORDERED: ACETAMINOPHEN 325 MG TABLET PO PRN (11:20)
[2018-04-26] MEDS ORDERED: ALBUTEROL SULFATE 2.5 MG/3 ML NEBULIZER NEB PRN (11:20)
[2018-04-26] MEDS ORDERED: HYDROmorphone 2 MG/ML VIAL IV PRN (11:20)
[2018-04-26] MEDS ORDERED: LEVALBUTEROL 0.63 MG/3 ML AMPUL.NEB NEB PRN (11:20)
[2018-04-26] MEDS ORDERED: OLANZapine 10 MG VIAL IM PRN (11:20)
[2018-04-26] MEDS ORDERED: 0.9 % SODIUM CHLORIDE 10 ML SYRINGE IV PRN (11:20)
[2018-04-26] MEDS ORDERED: CARBAMIDE PEROXIDE OTIC SOL 15ML AU ONE (11:47)
[2018-04-26] MEDS ORDERED: ALBUMIN HUMAN 12.5 GM/50 ML BAG IV ONE (14:59)
[2018-04-26] MEDS ORDERED: FUROSEMIDE 40 MG/4 ML VIAL IV ONE (15:00)
[2018-04-26] MEDS ORDERED: guaiFENesin 600 MG TAB.SR.12H PO SCH (21:00)
[2018-04-26] MEDS ORDERED: methylPREDNISolone SOD SUCC 40 MG/ML VIAL IV SCH (21:00)
[2018-04-26] MEDS: guaiFENesin 600 MG TAB.SR.12H PO SCH (21:46)
[2018-04-27] MEDS: PIPERACILLIN SODIUM/TAZOBACTAM 2.25 GM in DEXTROSE 5% IN WATER 50 ML IV SCH ×5 (00:08→23:52)
[2018-04-27 05:38] LABS: Basophils # (Auto) 0 K/mcL (0.0-0.3); Basophils % (Auto) 0 % (0.0-2.0); Eosinophils # (Auto) 0 K/mcL (0.0-0.7); Eosinophils % (Auto) 0.1 % (0.0-7.0); Granulocytes % (Auto) 95.5 % (38.0-78.0); Lymphocytes # (Auto) 0.4 K/mcL (1.5-4.8); Lymphocytes % (Auto) 2.9 % (15.5-49.0); Mean Cell Volume 89.2 fL (80.0-100.0); Mean Corpuscular HGB Conc 32.3 g/dL (31.0-36.0); Monocytes # (Auto) 0.2 K/mcL (0.1-0.9); Monocytes % (Auto) 1.5 % (1.0-12.0); Platelet Count 600 K/mcL (140-440); RBC 3.99 M/mcL (4.00-5.20); Red Cell Distribution Width 16.9 % (11.5-14.5)
[2018-04-27] MEDS: 0.9 % SODIUM CHLORIDE 10 ML SYRINGE IV SCH ×7 (05:48→22:09)
[2018-04-27 06:04] LABS: ALT/SGPT 20 U/l (0-40); Albumin/Globulin Ratio 1.5 (1.0-2.3); Alkaline Phosphatase 95 U/L (39-117); Bilirubin,Direct < 0.2 mg/dL (0.0-0.3); Blood Urea Nitrogen 27 mg/dl (8-23); Gamma Glutamyl Transpeptidase 30 U/L (5-36); Uric Acid 4.3 mg/dL (2.5-8.0)
[2018-04-27] MEDS: PANTOPRAZOLE 40 MG VIAL IV SCH ×2 (07:04→17:24)
[2018-04-27] MEDS ORDERED: POTASSIUM CHLORIDE 20 MEQ TABLET PO ONE (07:15)
--- NOTE | 2018-04-27 07:18 | Internal Med Progress Note ---
Medical - PN: Subj Patient information: Note initiated : 04/27/18 at 7:10 am Service Date, if different from initiated Date: [] Patient: Shari Rice 82 y/o F admitted on 04/20/18 for hypoxic. Chief Complaint: [] Interval history: ms. Rice is a 82 year old F with history of pulmonary fibrosis, COPD presents to the hospital from a senior care for evaluation of shortness of breath. On my evaluation patient was on BiPAP, eating 100% oxygen to maintain her oxygen saturation more than 95%. She noted that she has not been feeling well for the last 3-4 days. Short of breath and cough. Unable to provide much history due to acuity of medical condition. History obtained from talking to family as well as chart review. The patient was admitted on 12 April at [facility] after a fall. The patient developed a maxillary fracture, radius ulna fracture and hip fracture. The patient hip fracture was fixed and the patient was discharged to senior care for further rehab. The hospital stay it seems was complicated with a pneumonia. Patient was discharged with p.o. levofloxacin. The patient condition probably worsened at the rehab center, this morning it was noted by the senior care staff that the patient was hypoxic needing more than 6 L of oxygen to keep her oxygen levels more than 90. Patient was therefore sent to the emergency room for further evaluation. The patient was also tachyc ardic tachypneic and febrile. On presentation to the emergency room patient was febrile with a temperature of 101.7, tachycardic heart rate 122 blood pressure 115/61 tachypneic respiratory rate between 30-35 and saturating 87% despite being 100% FiO2 on a nonrebreather. Patient was subsequently placed on a BiPAP. Labs show a WBC count of 23,700 hemoglobin 9.2, 24% bands platelets 546 lactic acid 1.2 Sodium is 130 potassium is 3.8 bicarbonate is 31 creatinine is 1.0 glucose is 187. ABG shows pH of 7.52 PCO2 49 PO2 48 on a nonrebreather Chest x-ray shows bilateral pneumonia left greater than right bilateral effusion left greater than right underlying pulmonary fibrosis. EKG done shows sinus tachycardia nonspecific ST wave changes in the lateral leads and poor R wave progression Patient is being admitted to the ICU for further management, I have reviewed with the patient's family, her sons in the emergency room with regards to overall poor prognosis of this patient given the severity of illness. They verbalized understanding. They are okay with BiPAP, central line and pressors but did not want CPR or intubation. 04/21 Patient seen examined, no acute overnight issues, pt still on bipap this AM, but did not want to be on it, we have placed her on hiflo oxygen. X ray shows persistent left pleural effusion and pneumonia. CTA planned by ER was not done, started pt on therapeutic anticoagulation She needs thoracocentesis for further evaluation of left pleural effusion She also has poor iv access, unable to place picc, will need central line. Initially she was refusing care this am, wanting to talk with her family, after a discussion with family she did agree, patient remains critically ill.Flu is neg, but given high prevelance will complete course for 5 days. 04/22 Pt seen examined, CTA neg for PE, Pt had drop in her Hb from 8.7 to 6.7, pt had no obvious source of bleed, CT abdomen is negative for any retroperitoneal bleed, but did note a 6 cm subcutaneous hematoma on the left hip site. GI consulted. Ok to intubate for EGD if necessary, pt is presently on NRB and saturating well Pt had thoracocentesis yesterday, 400cc fluid removed, appears transudative in nature. 04/23 Patient seen examined, no acute overnight issues, pt remains on bipap, ABG this AM 7.42//86 Pt to be given trial off bipap, wean off bipap as tolerated Oral feeds to resume after EGD Hb stable, plan EGD this PM by Dr Tracy, with help of anesthesia. 04/24 no bipap required o/n, on nasal cannula at 5 L. With sats 94. Has occasional cough. And shortness of breath which she says is improved with Xopenex. 04/25 Patient states poor sleep last night. Up in the chair this morning. Complains of being cold. Has cough but she is unable to cough out sputum. She has shortness of breath. Diarrhea reported last night. BC from 04/20 with coag neg staph deemed contaminant. 04/26 Center on 8 L overnight. During the day in bed nurse that we get her down to 2 L. She had great urine output yesterday. After several doses of Lasix Nurse reports that the sputum this morning was frothy. Patient moved to the chair. Patient overall feels better. 04/27 Slept well. Was using ice and Acapella yesterday and was able to cough up a lot of phlegm. Improvement in her oxygen saturations and oxygen requirements with past 24 hours. Increased appetite. Still has shortness of breath. Review of Systems: denies headache/fever/nausea/vomiting/chest or abdominal pain. Otherwise see above. - Constitutional Vitals: Vital Signs Temp Pulse Resp BP Pulse Ox 98.8 F 93 H 17 143/63 99 04/27/18 05:01 04/27/18 05:01 04/27/18 05:01 04/27/18 05:01 04/27/18 05:01 Period Temp Pulse Resp BP Sys/Marcus Pulse Ox Last 24 Hr 98.7 F-99.1 F 82-104 13-25 107-153/46-121 87-99 Intake and Output 04/26/18 04/27/18 04/27/18 21:59 05:59 13:59 Intake Total 170 150 44 Output Total 550 1450 Balance -380 -1300 44 Weight 41.504 kg Intake & Output: Intake & Output 04/26/18 04/27/18 04/27/18 21:59 05:59 13:59 Intake Total 170 150 44 Output Total 550 1450 Balance -380 -1300 44 Weight 41.504 kg Intake: IV 50 50 44 Zosyn 2.25 gm In Dextrose 5% in 50 50 44 Water 50 ml @ 100 mls/hr IV Q6H [facility] Rx#:[id number] Oral 120 100 Output: Urine Catheter Amount 550 1450 Other: Meal Dinner Percent of Meal Consumed 25% Feeding Ability Total Assistance Urine Appearance Uretheral (Coulter) Clear Urine Color Uretheral (Coulter) Pale Stool Color Green Stool Consistency Liquid Exam: General: Alert, Awake, No acute Distress Eyes/N/T: EOMI, Head/Neck: neck supple, CV: RRR, no murmurs Pulm: Diminished breath sounds b/l but slowly improving in aeration , prolonged expiratory phase, no wheezing. Abd: soft, nontender, +BS x4 Ext: no clubbing/cyanosis/edema Neuro: Alert, no focal deficits, moves all extremities, Skin: warm/dry Medical - PN: Obj Da - Labs CBC & Chem 7: 04/27/18 04:00 04/27/18 04:00 Labs: Abnormal Lab Results 04/27/18 04/27/18 04/26/18 04:00 04:00 04:00 WBC 15.0 H RBC 3.99 L Hgb 11.5 L Hct 35.6 L RDW 16.9 H Plt Count 600 H MPV Gran % 95.5 H Lymph % (Auto) 2.9 L Gran # 14.3 H Lymph # (Auto) 0.4 L Seg Neutrophils % Lymphocytes % RBC Morphology Anisocytosis Potassium 3.0 L 3.1 L Chloride 91 L 91 L Carbon Dioxide 32 H 40 H Anion Gap 17.0 H 7.0 L BUN 27 H Creatinine 1.4 H Glucose 161 H 154 H Hemoglobin A1c Calcium Phosphorus 2.4 L Lactate Dehydrogenase 355 H 299 H Total Protein Albumin Triglycerides 154 H 04/26/18 04/25/18 04/25/18 04:00 04:00 04:00 WBC 14.1 H RBC 3.69 L Hgb 10.7 L Hct 32.6 L RDW 17.2 H Plt Count 549 H MPV Gran % 95.8 H Lymph % (Auto) 2.5 L Gran # 13.5 H Lymph # (Auto) 0.4 L Seg Neutrophils % 87 H Lymphocytes % 7 L RBC Morphology Abnorm A Anisocytosis 1+ A Potassium Chloride Carbon Dioxide Anion Gap BUN Creatinine Glucose Hemoglobin A1c 6.2 H Calcium Phosphorus Lactate Dehydrogenase Total Protein Albumin Triglycerides 04/25/18 04/25/18 04:00 04:00 WBC 14.5 H RBC 3.44 L Hgb 10.0 L Hct 30.5 L RDW 17.4 H Plt Count 525 H MPV 7.3 L Gran % 90.7 H Lymph % (Auto) 5.3 L Gran # 13.2 H Lymph # (Auto) 0.8 L Seg Neutrophils % Lymphocytes % RBC Morphology Anisocytosis Potassium Chloride Carbon Dioxide 34 H Anion Gap BUN Creatinine Glucose Hemoglobin A1c Calcium 8.3 L Phosphorus 2.3 L Lactate Dehydrogenase 292 H Total Protein 4.9 L Albumin 2.5 L Triglycerides 184 H Meds: Medications Acetaminophen (Tylenol) 650 mg PO Q4-6HP PRN PRN Reason: PAIN/FEVER > 101 Hydrocodone Bitart/Acetaminophen ([place] 7.5/325mg) 1 tab PO Q4HP PRN PRN Reason: Pain Albuterol Sulfate (Ventolin) 2.5 mg NEB Q2HP PRN PRN Reason: Shortness Of Breath Or Wheezing Albuterol/Ipratropium (Duoneb) 3 ml NEB TID [facility] Last Admin: 04/26/18 20:13 Dose: 3 ml Documented by: Beclomethasone Dipropionate (Qvar 40) 1 puff INH BID [facility] Last Admin: 04/26/18 21:47 Dose: 1 puff Documented by: Guaifenesin (Mucinex) 600 mg PO BIDP PRN PRN Reason: Congestion Guaifenesin (Mucinex) 600 mg PO BID [facility] Stop: 04/28/18 09:01 Last Admin: 04/26/18 21:46 Dose: 600 mg Documented by: Hydromorphone HCl (Dilaudid) 0.5 - 1 mg IV Q2HP PRN PRN Reason: PAIN LEVEL > 6 Piperacillin Sod/Tazobactam (Sod 2.25 gm/ Dextrose) 50 mls @ 100 mls/hr IV Q6H [facility] Last Infusion: 04/27/18 06:40 Dose: 0 mls/hr Documented by: Lactobacillus Rhamnosus (Culturelle) 1 cap PO BID [facility] Last Admin: 04/26/18 21:46 Dose: 1 cap Documented by: Levalbuterol HCl (Xopenex) 0.63 mg NEB Q4HP PRN PRN Reason: Shortness Of Breath Loperamide HCl (Imodium) 2 mg PO PRN PRN PRN Reason: Diarrhea Last Admin: 04/26/18 14:43 Dose: 2 mg Documented by: Lorazepam (Ativan) 0.5 mg IV Q4HP PRN PRN Reason: ANXIETY/SEDATION Methylprednisolone Sodium Succinate (Solu-Medrol) 20 mg IV Q12 [facility] Last Admin: 04/26/18 21:46 Dose: 20 mg Documented by: Naloxone HCl (Narcan) 0.1 mg IV Q2MIN PRN PRN Reason: Opiate Reversal Olanzapine (Zyprexa) 5 mg IM Q2HP PRN PRN Reason: Anxiety Ondansetron HCl (Zofran) 4 mg IV Q4-6HP PRN PRN Reason: Nausea And Vomiting Pantoprazole Sodium (Protonix) 40 mg IV BIDAC [facility] Last Admin: 04/27/18 07:04 Dose: 40 mg Documented by: Levalbuterol Tartrate (Xopenex) 45 Mcg Inhaler 2 dose INH Q4HP PRN PRN Reason: Shortness Of Breath Last Admin: 04/26/18 15:45 Dose: 2 dose Documented by: Cyanocobalamin [ Vitamin B12] 5,000 Mcg Tab 1 dose PO DAILY [facility] Sodium Chloride (Saline Flush) 10 ml IV UD PRN PRN Reason: FLUSH Sodium Chloride (Saline Flush) 10 ml IV Q8 [facility] Last Admin: 04/27/18 05:48 Dose: 10 ml Documented by: Sodium Chloride (Saline Flush) 10 ml IV Q12 [facility] Last Admin: 04/26/18 23:06 Dose: Not Given Documented by: Sodium Chloride (Saline Flush) 10 ml IV Q12 [facility] Last Admin: 04/26/18 23:06 Dose: Not Given Documented by: Medical - PN: A/P - Time Spent With Patient Total time spent is greater than 50% in coordination of care (as documented) at patient's floor/unit and/or counseling patient: - Narrative A/P Narrative: A: *Acute on chronic hypoxic respiratory failure: 2/2 copd and mucus plugging -prn bipap, last used 04/23 -CTA no PE, emphysema and pulm fibrosis, mucus plugging RML & lower lobes -diuresed quite a bit yesterday with lasix, but no improvement in O2 requirem ent, at least o/n -down to 4L NC with sats mid to high 90's, good progress last 24hrs *PNA: leukocytosis slowly improving -SC neg, only rhinovirus on resp panel *AECOPD (3L@home)/pulmonary fibrosis: *met alkalosis: 2/2 copd improved with dose of diamox *Pleural effusion: s/p thoracocentesis (04/21) 400cc, transudative in nature *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 -IS/Acapella, unable to do CPT given recent fractures - -evaluated by GI, underwent EGD -f/u CXR -pain mgmnt, rehab -pt/ot -f/u outpt with ENT as previously scheduled -ppx: SCD (lovenox held for GI bleed and hematoma)/ppi Medical - PN: Qual - VTE Deep Vein Thrombosis/Pulmonary Embolism Present on Admission: No
[2018-04-27] MEDS: LEVALBUTEROL TARTRATE 45 MCG INH PRN ×2 (07:52→19:23)
[2018-04-27 08:32] LABS: Anisocytosis 1+ (NONE SEEN); Lymphocytes % 3 % (15-49); Monocytes % (Manual) 2 % (1-12); Platelet Estimate INCREASED (NORMAL); RBC Morphology ABNORM (NORMAL); Segmented Neutrophils % 95 % (38-78)
[2018-04-27] MEDS: guaiFENesin 600 MG TAB.SR.12H PO SCH ×2 (08:52→22:06)
[2018-04-27] MEDS: ASPIRIN 81 MG TAB.CHEW PO SCH (08:52)
[2018-04-27] MEDS: LACTOBACILLUS 1 CAPSULE PO SCH ×2 (08:52→22:06)
--- NOTE | 2018-04-27 09:07 | XRay Report ---
CLINICAL INFORMATION: fu chf COMPARISON: 04/26/2018 FINDINGS: Heart size, mediastinum and pulmonary vessels are normal. Right IJ central line remains in stable, satisfactory position. COPD changes noted. Bilateral pleural effusions have decreased in size are now small. Bibasilar infiltrates/atelectasis have also decreased considerably and now small. IMPRESSION: Marked interval decrease in bibasilar infiltrate/atelectasis and effusions now small. Underlying COPD No evidence of CHF. Interpreted and Authenticated by: Avel Swan 04/27/18
[2018-04-27] MEDS: CYANOCOBALAMIN 5000 MCG PO SCH (09:10)
[2018-04-27] MEDS: IPRATROPIUM/ALBUTEROL 3 ML AMPUL.NEB NEB SCH ×3 (09:10→20:57)
[2018-04-27] MEDS: BECLOMETHASONE DIPROPIONATE 40MCG INHALER INH SCH ×2 (09:10→22:06)
[2018-04-27] MEDS: predniSONE 20 MG TABLET PO SCH (10:10)
[2018-04-28] MEDS: 0.9 % SODIUM CHLORIDE 10 ML SYRINGE IV SCH ×3 (05:42→22:15)
[2018-04-28] MEDS: PIPERACILLIN SODIUM/TAZOBACTAM 2.25 GM in DEXTROSE 5% IN WATER 50 ML IV SCH ×4 (05:42→23:39)
[2018-04-28 06:11] LABS: Basophils # (Auto) 0 K/mcL (0.0-0.3); Basophils % (Auto) 0 % (0.0-2.0); Eosinophils # (Auto) 0 K/mcL (0.0-0.7); Eosinophils % (Auto) 0.3 % (0.0-7.0); Lymphocytes % (Auto) 7.6 % (15.5-49.0); Mean Cell Volume 89.2 fL (80.0-100.0); Mean Corpuscular HGB Conc 32.1 g/dL (31.0-36.0); Monocytes # (Auto) 0.8 K/mcL (0.1-0.9); Monocytes % (Auto) 6.1 % (1.0-12.0); Platelet Count 575 K/mcL (140-440); RBC 3.82 M/mcL (4.00-5.20); Red Cell Distribution Width 16.7 % (11.5-14.5)
[2018-04-28 06:48] LABS: ALT/SGPT 19 U/l (0-40); Albumin 3.6 gm/dL (3.2-5.2); Albumin/Globulin Ratio 1.4 (1.0-2.3); Alkaline Phosphatase 88 U/L (39-117); Bilirubin,Direct < 0.2 mg/dL (0.0-0.3); Blood Urea Nitrogen 37 mg/dl (8-23); Gamma Glutamyl Transpeptidase 30 U/L (5-36); Uric Acid 4.5 mg/dL (2.5-8.0)
[2018-04-28] MEDS: LEVALBUTEROL TARTRATE 45 MCG INH PRN (07:49)
[2018-04-28] MEDS: predniSONE 20 MG TABLET PO SCH (07:53)
[2018-04-28] MEDS: PANTOPRAZOLE 40 MG VIAL IV SCH ×2 (07:53→17:41)
[2018-04-28] MEDS: ASPIRIN 81 MG TAB.CHEW PO SCH (08:04)
[2018-04-28] MEDS: LACTOBACILLUS 1 CAPSULE PO SCH ×2 (08:04→21:51)
[2018-04-28] MEDS: guaiFENesin 600 MG TAB.SR.12H PO SCH (08:04)
[2018-04-28] MEDS: CYANOCOBALAMIN 5000 MCG PO SCH (08:05)
[2018-04-28] MEDS: BECLOMETHASONE DIPROPIONATE 40MCG INHALER INH SCH ×2 (08:14→21:51)
[2018-04-28] MEDS: IPRATROPIUM/ALBUTEROL 3 ML AMPUL.NEB NEB SCH ×3 (09:11→20:17)
[2018-04-28] MEDS ORDERED: HYDROCODONE/APAP 7.5/325MG TABLET PO PRN (10:38)
[2018-04-28] MEDS ORDERED: ACETAMINOPHEN 325 MG TABLET PO PRN (10:38)
[2018-04-28] MEDS ORDERED: 0.9 % SODIUM CHLORIDE 10 ML SYRINGE IV PRN (10:38)
[2018-04-28] MEDS ORDERED: LEVALBUTEROL TARTRATE 45 MCG INH PRN (10:38)
[2018-04-28] MEDS ORDERED: LOPERAMIDE 2 MG CAPSULE PO PRN (10:38)
[2018-04-28] MEDS ORDERED: ALBUTEROL SULFATE 2.5 MG/3 ML NEBULIZER NEB PRN (10:38)
[2018-04-28] MEDS ORDERED: OLANZapine 10 MG VIAL IM PRN (10:38)
[2018-04-28] MEDS ORDERED: ONDANSETRON 4 MG/2 ML VIAL IV PRN (10:38)
[2018-04-28] MEDS ORDERED: LORazepam 2 MG/ML VIAL IV PRN (10:38)
[2018-04-28] MEDS ORDERED: HYDROmorphone 2 MG/ML VIAL IV PRN (10:38)
[2018-04-28] MEDS ORDERED: LEVALBUTEROL 0.63 MG/3 ML AMPUL.NEB NEB PRN (10:38)
[2018-04-28] MEDS ORDERED: NALOXONE HCL 0.4 MG/ML VIAL IV PRN (10:38)
--- NOTE | 2018-04-28 12:01 | Internal Med Progress Note ---
Medical - PN: Subj Patient information: Note initiated : 04/28/18 at 11:55 am Service Date, if different from initiated Date: [] Patient: Shari Rice 82 y/o F admitted on 04/20/18 for hypoxic. Chief Complaint: [] Interval history: ms. Rice is a 82 year old F with history of pulmonary fibrosis, COPD [facility] the hospital from a [facility] for evaluation of shortness of breath. On my evaluation patient was on BiPAP, eating 100% oxygen to maintain her oxygen saturation more than 95%. She noted that she has not been feeling well for the last 3-4 days. Short of breath and cough. Unable to provide much history due to acuity of medical condition. History obtained from talking to family as well as chart review. The patient was admitted on 12 April at [facility] after a fall. The patient developed a maxillary fracture, radius ulna fracture and hip fracture. The patient hip fracture was fixed and the patient was discharged to [facility] for further [facility]hab. The hospital stay it seems was complicated with a pneumonia. Patient was discharged with p.o. levofloxacin. The patient condition probably worsened at the rehab center, this morning it was noted by the [facility] staff that the patient was hypoxic needing more than 6 L of oxygen to keep her oxygen levels more than 90. Patient was therefore sent to the emergency room for further evaluation. The patient was also tachy cardic tachypneic and febrile. On presentation to the emergency room patient was febrile with a temperature of 101.7, tachycardic heart rate 122 blood pressure 115/61 tachypneic respiratory rate between 30-35 and saturating 87% despite being 100% FiO2 on a nonrebreather. Patient was subsequently placed on a BiPAP. Labs show a WBC count of 23,700 hemoglobin 9.2, 24% bands platelets 546 lactic acid 1.2 Sodium is 130 potassium is 3.8 bicarbonate is 31 creatinine is 1.0 glucose is 187. ABG shows pH of 7.52 PCO2 49 PO2 48 on a nonrebreather Chest x-ray shows bilateral pneumonia left greater than right bilateral effusion left greater than right underlying pulmonary fibrosis. EKG done shows sinus tachycardia nonspecific ST wave changes in the lateral leads and poor R wave progression Patient is being admitted to the ICU for further management, I have reviewed with the patient's family, her sons in the emergency room with regards to overall poor prognosis of this patient given the severity of illness. They verbalized understanding. They are okay with BiPAP, central line and pressors but did not want CPR or intubation. 04/21 Patient seen examined, no acute overnight issues, pt still on bipap this AM, but did not want to be on it, we have placed her on hiflo oxygen. X ray shows persistent left pleural effusion and pneumonia. CTA planned by ER was not done, started pt on therapeutic anticoagulation She needs thoracocentesis for further evaluation of left pleural effusion She also has poor iv access, unable to place picc, will need central line. Initially she was refusing care this am, wanting to talk with her family, after a discussion with family she did agree, patient remains critically ill.Flu is neg, but given high prevelance will complete course for 5 days. 04/22 Pt seen examined, CTA neg for PE, Pt had drop in her Hb from 8.7 to 6.7, pt had no obvious source of bleed, CT abdomen is negative for any retroperitoneal bleed, but did note a 6 cm subcutaneous hematoma on the left hip site. GI consulted. Ok to intubate for EGD if necessary, pt is presently on NRB and saturating well Pt had thoracocentesis yesterday, 400cc fluid removed, appears transudative in nature. 04/23 Patient seen examined, no acute overnight issues, pt remains on bipap, ABG this AM 7.42//86 Pt to be given trial off bipap, wean off bipap as tolerated Oral feeds to resume after EGD Hb stable, plan EGD this PM by Dr Tracy, with help of anesthesia. 04/24 no bipap required o/n, on nasal cannula at 5 L. With sats 94. Has occasional cough. And shortness of breath which she says is improved with Xopenex. 04/25 Patient states poor sleep last night. Up in the chair this morning. Complains of being cold. Has cough but she is unable to cough out sputum. She has shortness of breath. Diarrhea reported last night. BC from 04/20 with coag neg staph deemed contaminant. 04/26 Center on 8 L overnight. During the day in bed nurse that we get her down to 2 L. She had great urine output yesterday. After several doses of Lasix Nurse reports that the sputum this morning was frothy. Patient moved to the chair. Patient overall feels better. 04/27 Slept well. Was using ice and Acapella yesterday and was able to cough up a lot of phlegm. Improvement in her oxygen saturations and oxygen requirements with past 24 hours. Increased appetite. Still has shortness of breath. 04/28 -Patient undergoing rehab. No overnight fever chills nausea vomiting. Continue nutritional support. Anticipate SNF transfer in 24 hours if continues to improve. - Constitutional Vitals: Vital Signs Temp Pulse Resp BP Pulse Ox 98.4 F 94 H 17 143/59 90 04/28/18 06:01 04/28/18 09:15 04/28/18 09:15 04/28/18 06:40 04/28/18 09:12 Period Temp Pulse Resp BP Sys/Marcus Pulse Ox Last 24 Hr 98.2 F-99.2 F 79-120 13-26 103-143/38-63 90-97 Intake and Output 04/27/18 04/28/18 04/28/18 21:59 05:59 13:59 Intake Total 50 150 50 Output Total 525 250 Balance -475 -100 50 Weight 93 lb 14.4 oz Intake & Output: Intake & Output 04/27/18 04/28/18 04/28/18 21:59 05:59 13:59 Intake Total 50 150 50 Output Total 525 250 Balance -475 -100 50 Weight 93 lb 14.4 oz Intake: IV 50 50 50 Zosyn 2.25 gm In Dextrose 5% in 50 50 50 Water 50 ml @ 100 mls/hr IV Q6H [facility] Rx#:[id number] Oral 100 Output: Urine Catheter Amount 525 250 Other: Meal Dinner Percent of Meal Consumed bites Feeding Ability Assist with Tray Set Up Urine Appearance Clear Uretheral (Coulter) Clear Clear Urine Color Bright Yellow Uretheral (Coulter) Light Mel Pale Light Mel Urine Odor Normal General appearance: thin Exam: Frail-appearing elderly No anxiety Large bruise left cheek Non labored breathing currently on 2 L oxygen Medical - PN: Obj Da - Labs CBC & Chem 7: 04/28/18 04:20 04/28/18 04:20 Labs: Abnormal Lab Results 04/28/18 04/28/18 04/27/18 04:20 04:20 04:20 WBC 13.0 H RBC 3.82 L Hgb 10.9 L Hct 34.0 L RDW 16.7 H Plt Count 575 H Gran % 86.0 H Lymph % (Auto) 7.6 L Gran # 11.2 H Lymph # (Auto) 1.0 L Seg Neutrophils % 95 H Lymphocytes % 3 L RBC Morphology Abnorm A Anisocytosis 1+ A Potassium Chloride Carbon Dioxide Anion Gap BUN 37 H Creatinine Glucose 106 H Phosphorus 2.4 L Lactate Dehydrogenase 302 H Triglycerides 219 H 04/27/18 04/27/18 04/26/18 04:00 04:00 04:00 WBC 15.0 H RBC 3.99 L Hgb 11.5 L Hct 35.6 L RDW 16.9 H Plt Count 600 H Gran % 95.5 H Lymph % (Auto) 2.9 L Gran # 14.3 H Lymph # (Auto) 0.4 L Seg Neutrophils % Lymphocytes % RBC Morphology Anisocytosis Potassium 3.0 L 3.1 L Chloride 91 L 91 L Carbon Dioxide 32 H 40 H Anion Gap 17.0 H 7.0 L BUN 27 H Creatinine 1.4 H Glucose 161 H 154 H Phosphorus 2.4 L Lactate Dehydrogenase 355 H 299 H Triglycerides 154 H 04/26/18 04:00 WBC 14.1 H RBC 3.69 L Hgb 10.7 L Hct 32.6 L RDW 17.2 H Plt Count 549 H Gran % 95.8 H Lymph % (Auto) 2.5 L Gran # 13.5 H Lymph # (Auto) 0.4 L Seg Neutrophils % Lymphocytes % RBC Morphology Anisocytosis Potassium Chloride Carbon Dioxide Anion Gap BUN Creatinine Glucose Phosphorus Lactate Dehydrogenase Triglycerides Meds: Medications Acetaminophen (Tylenol) 650 mg PO Q4-6HP PRN PRN Reason: PAIN/FEVER > 101 Hydrocodone Bitart/Acetaminophen ([place] 7.5/325mg) 1 tab PO Q4HP PRN PRN Reason: Pain Albuterol Sulfate (Ventolin) 2.5 mg NEB Q2HP PRN PRN Reason: Shortness Of Breath Or Wheezing Albuterol/Ipratropium (Duoneb) 3 ml NEB TID [facility] Aspirin (Aspirin) 81 mg PO DAILY [facility] Beclomethasone Dipropionate (Qvar 40) 1 puff INH BID [facility] Guaifenesin (Mucinex) 600 mg PO BIDP PRN PRN Reason: Congestion Hydromorphone HCl (Dilaudid) 0.5 - 1 mg IV Q2HP PRN PRN Reason: PAIN LEVEL > 6 Piperacillin Sod/Tazobactam (Sod 2.25 gm/ Dextrose) 50 mls @ 100 mls/hr IV Q6H [facility] Last Admin: 04/28/18 11:47 Dose: 100 mls/hr Documented by: Lactobacillus Rhamnosus (Culturelle) 1 cap PO BID [facility] Levalbuterol HCl (Xopenex) 0.63 mg NEB Q4HP PRN PRN Reason: Shortness Of Breath Loperamide HCl (Imodium) 2 mg PO PRN PRN PRN Reason: Diarrhea Lorazepam (Ativan) 0.5 mg IV Q4HP PRN PRN Reason: ANXIETY/SEDATION Naloxone HCl (Narcan) 0.1 mg IV Q2MIN PRN PRN Reason: Opiate Reversal Olanzapine (Zyprexa) 5 mg IM Q2HP PRN PRN Reason: Anxiety Ondansetron HCl (Zofran) 4 mg IV Q4-6HP PRN PRN Reason: Nausea And Vomiting Pantoprazole Sodium (Protonix) 40 mg IV BIDAC [facility] Levalbuterol Tartrate (Xopenex) 45 Mcg Inhaler 2 dose INH Q4HP PRN PRN Reason: Shortness Of Breath Cyanocobalamin [ Vitamin B12] 5,000 Mcg Tab 1 dose PO DAILY [facility] Prednisone (Prednisone) 40 mg PO QAMCC [facility] Sodium Chloride (Saline Flush) 10 ml IV UD PRN PRN Reason: FLUSH Sodium Chloride (Saline Flush) 10 ml IV Q8 [facility] Medical - PN: A/P - Time Spent With Patient Total time spent is greater than 50% in coordination of care (as documented) at patient's floor/unit and/or counseling patient: 15 - 24 minutes (1) Respiratory failure with hypoxia Status: Acute Assessment and plan: *Acute on chronic hypoxic respiratory failure: 2/2 copd and mucus plugging -Off Bipap, last used 04/23. 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; hematoma on the thigh contributing, noted on CT -EGD (04/23) with 2 angiodysplasia sites in duodenum -s/p 2PRBC (04/22) *UTI (proteus): *Sepsis: resolving *CKD III (1.0-1.2): *h/o CHF (recent echo with EF 50% and grade I diastolic dysfxn) *Recent fall with fractures left wrist/hip/maxillary/left distal radius and ulna: s/p ORIF Left Hip at [facility] (04/12) -left wrist/arm in splint P: * Transfer to medical floor * Continue to wean oxygen * DC Zosyn 04/29 * DC prednisone 05/04 * Continue bronchodilators/pulmonary toilet * Aggressive rehab support * Nutrition support in light of significant weight loss * f/u outpt with ENT as outpatient as previously scheduled * ppx: SCD (lovenox held for GI bleed and hematoma) * Continue on discharge -ppi Current Visit: Yes Medical - PN: Qual - VTE Deep Vein Thrombosis/Pulmonary Embolism Present on Admission: No
[2018-04-28] MEDS ORDERED: guaiFENesin 600 MG TAB.SR.12H PO PRN ×3 (21:00)
[2018-04-29] MEDS: 0.9 % SODIUM CHLORIDE 10 ML SYRINGE IV SCH (05:10)
[2018-04-29] MEDS: PIPERACILLIN SODIUM/TAZOBACTAM 2.25 GM in DEXTROSE 5% IN WATER 50 ML IV SCH ×2 (05:10→12:24)
[2018-04-29] MEDS: PANTOPRAZOLE 40 MG VIAL IV SCH (07:14)
[2018-04-29] MEDS: IPRATROPIUM/ALBUTEROL 3 ML AMPUL.NEB NEB SCH (07:30)
[2018-04-29] MEDS ORDERED: predniSONE 20 MG TABLET PO SCH (08:00)
[2018-04-29] MEDS: LACTOBACILLUS 1 CAPSULE PO SCH (08:13)
[2018-04-29] MEDS: BECLOMETHASONE DIPROPIONATE 40MCG INHALER INH SCH (08:14)
[2018-04-29] MEDS ORDERED: CYANOCOBALAMIN 5000 MCG PO SCH (09:00)
[2018-04-29] MEDS ORDERED: ASPIRIN 81 MG TAB.CHEW PO SCH (09:00)
--- NOTE | 2018-04-29 10:42 | Discharge Summary ---
Medical - DS: Prov Patient information: Note initiated : 04/29/18 at 10:39 am Service Date, if different from initiated Date: [] Patient: Shari Rice 82 y/o F admitted on 04/20/18 for hypoxic. Chief Complaint: [] Date of admission: 04/20/18 15:07 Discharge date: 04/29/18 Primary care physician: Steven Pineda Consults: 04/20/18 Consult to Physician [CONS] Stat Comment: Consulting Provider: Drew Louis Reason For Exam: Physician to Consult 04/22/18 09:08 Consult to Physician [CONS] Routine Comment: Consulting Provider: Kevin Roth Reason For Exam: Physician to Consult Medical - DS: Meds - Discharge Medications Prescriptions: Pantoprazole [Protonix] 40 mg PO BIDAC #60 tab predniSONE [Prednisone] 40 mg PO QAMCC #10 tab Active and Home Medications: Home Medications Acetaminophen [Tylenol Arthritis] 650 mg PO Q4H 04/20/18 [History Confirmed 04/20/18 Last Taken Unknown] Aspirin [Adult Aspirin] 81 mg PO DAILY 04/20/18 [History Confirmed 04/20/18 Last Taken Unknown] Beclomethasone Dipropionate [Qvar 40] 1 puff INH BID 04/20/18 [History Confirmed 04/20/18 Last Taken Unknown] Bisacodyl [Dulcolax] 10 mg MD DAILYP PRN 04/20/18 [History Confirmed 04/20/18 Last Taken Unknown] Cyanocobalamin (Vitamin B-12) [Vitamin B12] 5,000 mcg PO DAILY 04/20/18 [History Confirmed 04/20/18 Last Taken Unknown] Cyanocobalamin/Folic Acid [Vitamin N86-Kryiv Acid Tablet] 1 each PO DAILY 04/20/18 [History Confirmed 04/20/18 Last Taken Unknown] Fish Oil 1,000 mg PO DAILY 04/20/18 [History Confirmed 04/20/18 Last Taken Unknown] Fish Oil/Borage/Flax/Om3,6,9#1 [Triple Egan Complex 3-6-9] 400 mg PO DAILY 04/20/18 [History Confirmed 04/20/18 Last Taken Unknown] Flaxseed Oil [Flax Seed Oil] 1,000 mg PO DAILY 04/20/18 [History Confirmed 04/20/18 Last Taken Unknown] Furosemide [Lasix] 10 mg PO DAILY 04/20/18 [History Confirmed 04/20/18 Last Taken Unknown] Hydrocodone/APAP 7.5/325Mg [[place] 7.5-325Mg] 1 tab PO Q4HP PRN 04/20/18 [History Confirmed 04/20/18 Last Taken Unknown] Ipratropium/Albuterol [Duoneb] 3 ml NEB TID 04/20/18 [History Confirmed 04/20/18 Last Taken Unknown] Levalbuterol Tartrate [Xopenex Hfa] 15 gm IH Q4HP PRN 04/20/18 [History Confirmed 04/20/18 Last Taken Unknown] Magnesium Hydroxide [Milk of Magnesia] 30 ml PO DAILYP PRN 04/20/18 [History Confirmed 04/20/18 Last Taken Unknown] Multivit-Min/Iron/Folic/Nfu018 [Hair, Skin and Nails Tablet] 1 each PO DAILY 04/20/18 [History Confirmed 04/20/18 Last Taken Unknown] Na Phos,M-B/Na Phos,Di-Ba [Fleets Adult] 1 dose MD DAILYP PRN 04/20/18 [History Confirmed 04/20/18 Last Taken Unknown] Spironolactone [Aldactone] 25 mg PO DAILY 04/20/18 [History Confirmed 04/20/18 Last Taken Unknown] Ubidecarenone [Coenzyme Q10] 100 mg PO DAILY 04/20/18 [History Confirmed 04/20/18 Last Taken Unknown] Pantoprazole [Protonix] 40 mg PO BIDAC #60 tab 04/29/18 [Rx Last Taken Unknown] predniSONE [Prednisone] 40 mg PO QAC #10 tab 04/29/18 [Rx Last Taken Unknown] Medical - DS: Hosp Hospital course: Discharge diagnosis * Acute on chronic hypoxic respiratory failure: 2/2 copd and mucus plugging, Off Bipap, last used 04/23. CTA no PE, emphysema and pulm fibrosis, mucus plugging RML & lower lobes, diuresed quite a bit yesterday with lasix, Continue weaning oxygen as tolerated * PNA: clinically resolved on antibiotics. 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 Continue Protonix twice daily for 30 days followed by once daily * UTI (proteus): Completed 7-day Zosyn * Sepsis: Resolved. White count down to 13 * CKD III (1.0-1.2) * H/o CHF (recent echo with EF 50% and grade I diastolic dysfxn) * Recent fall with fractures left wrist/hip/maxillary/left distal radius and ulna: s/p ORIF Left Hip at [facility] (04/12),left wrist/arm in splint. Continue aggressive PT OT at [facility] Brief hospital course ms. Rice is a 82 year old F with history of pulmonary fibrosis, COPD presents to the hospital from a [facility] for evaluation of shortness of breath. On my evaluation patient was on BiPAP, eating 100% oxygen to maintain her oxygen saturation more than 95%. She noted that she has not been feeling well for the last 3-4 days. Short of breath and cough. Unable to provide much history due to acuity of medical condition. History obtained from talking to family as well as chart review. The patient was admitted on 12 April at [facility] after a fall. The patient developed a maxillary fracture, radius ulna fracture and hip fracture. The patient hip fracture was fixed and the patient was discharged to [facility] for further rehab. The hospital stay it seems was complicated with a pneumonia. Patient was discharged with p.o. levofloxacin. The patient condition probably worsened at the rehab center, this morning it was noted by the [facility] staff that the patient was hypoxic needing more than 6 L of oxygen to keep her oxygen levels more than 90. Patient was therefore sent to the emergency room for further evaluation. The patient was also tachycardic tachypneic and febrile. On presentation to the emergency room patient was febrile with a temperature of 101.7, tachycardic heart rate 122 blood pressure 115/61 tachypneic respiratory rate between 30-35 and saturating 87% despite being 100% FiO2 on a nonrebreather. Patient was subsequently placed on a BiPAP. Labs show a WBC count of 23,700 hemoglobin 9.2, 24% bands platelets 546 lactic acid 1.2 Sodium is 130 potassium is 3.8 bicarbonate is 31 creatinine is 1.0 glucose is 187. ABG shows pH of 7.52 PCO2 49 PO2 48 on a nonrebreather Chest x-ray shows bilateral pneumonia left greater than right bilateral effusion left greater than right underlying pulmonary fibrosis. EKG done shows sinus tachycardia nonspecific ST wave changes in the lateral leads and poor R wave progression Patient is being admitted to the ICU for further management, I have reviewed with the patient's family, her sons in the emergency room with regards to overall poor prognosis of this patient given the severity of illness. They verbalized understanding. They are okay with BiPAP, central line and pressors but did not want CPR or intubation. 04/21 Patient seen examined, no acute overnight issues, pt still on bipap this AM, but did not want to be on it, we have placed her on hiflo oxygen. X ray shows persistent left pleural effusion and pneumonia. CTA planned by ER was not done, started pt on therapeutic anticoagulation She needs thoracocentesis for further evaluation of left pleural effusion She also has poor iv access, unable to place picc, will need central line. Initially she was refusing care this am, wanting to talk with her family, after a discussion with family she did agree, patient remains critically ill.Flu is neg, but given high prevelance will complete course for 5 days. 04/22 Pt seen examined, CTA neg for PE, Pt had drop in her Hb from 8.7 to 6.7, pt had no obvious source of bleed, CT abdomen is negative for any retroperitoneal bleed, but did note a 6 cm subcutaneous hematoma on the left hip site. GI consulted. Ok to intubate for EGD if necessary, pt is presently on NRB and saturating well Pt had thoracocentesis yesterday, 400cc fluid removed, appears transudative in nature. 04/23 Patient seen examined, no acute overnight issues, pt remains on bipap, ABG this AM 7.42// Pt to be given trial off bipap, wean off bipap as tolerated Oral feeds to resume after EGD Hb stable, plan EGD this PM by Dr Tracy, with help of anesthesia. 04/24 no bipap required o/n, on nasal cannula at 5 L. With sats 94. Has occasional cough. And shortness of breath which she says is improved with Xopenex. 04/25 Patient states poor sleep last night. Up in the chair this morning. Complains of being cold. Has cough but she is unable to cough out sputum. She has shortness of breath. Diarrhea reported last night. BC from 04/20 with coag mai krystina deemed contaminant. 04/26 Center on 8 L overnight. During the day in bed nurse that we get her down to 2 L. She had great urine output yesterday. After several doses of Lasix Nurse reports that the sputum this morning was frothy. Patient moved to the chair. Patient overall feels better. 04/27 Slept well. Was using ice and Acapella yesterday and was able to cough up a lot of phlegm. Improvement in her oxygen saturations and oxygen requirements with past 24 hours. Increased appetite. Still has shortness of breath. 04/28 -Patient undergoing rehab. No overnight fever chills nausea vomiting. Continue nutritional support. Anticipate SNF transfer in 24 hours if continues to improve. 04/29-patient doing well. Discharging to SNF. Continue prednisone for additional 5 days along with gradual oxygen weaning. Continue aggressive rehab support with PT OT/dietary interventions. Discharge instructions as below. Discharge diagnosis: . - Time Spent with Patient Total time spent providing and/or coordinating discharge services: Greater than 30 minutes Medical - DS: Exam - Constitutional Vitals: Vital Signs Temp Pulse Pulse Resp BP BP Pulse Ox 04/29/18 07:30 94 H 20 04/29/18 07:00 98.1 F 83 16 110/64 94 04/29/18 04:20 97.9 F 86 18 112/59 93 04/29/18 00:00 98.2 F 93 H 18 128/58 94 04/28/18 20:20 100 H 20 04/28/18 19:41 20 04/28/18 19:15 97.7 F 101 H 24 H 125/54 92 04/28/18 16:00 98.5 F 107 H 20 124/60 92 04/28/18 15:51 104 H 18 04/28/18 12:57 15 04/28/18 12:33 98.0 F 97 H 17 129/60 96 Intake and Output 04/28/18 04/29/18 04/29/18 21:59 05:59 13:59 Intake Total 250 220 Output Total 170 274 150 Balance 80 -54 -150 Intake: IV 50 100 Zosyn 2.25 gm In Dextrose 5% in 50 100 Water 50 ml @ 100 mls/hr IV Q6H WENDY Rx#:[id number] Oral 200 120 Output: Void Amount 170 274 150 Other: Urine Color Dark Yellow Stool Size Small Stool Color Brown Stool Consistency Soft Liquid # Bowel Movements 1 Weight 95 lb 8 oz Medical - DS: Data Labs on day of discharge: Preliminary micro results at discharge 04/25/18 18:15 Sputum Culture - Preliminary Sputum - Expectorated Susannah albicans Medical - DS: A/P - Patient/Caregiver Discharge Instructions Activity: as per physical therapy, increase activity as tolerated, as instructed (Wean oxygen as tolerated) Diet: Regular Diet Additional Instructions: Follow-up PCP in 5 days Continue prednisone for additional 5 days Continue Protonix 40 twice daily for 30 days followed by once daily I recommend SNF physician to check CBC BMP UA as a posthospital follow-up in 1 week. s Continue aggressive bowel regimen to prevent constipation Continue fall precautions Continue aggressive PT OT evaluation and treatment at [facility]. ST eval and treatment if indicated All meals on chair sitting upright at 90 degrees to prevent aspiration Return to ER if worsening fever chills shortness of breath Continue diet and activity as advised Discussed importance of medication adherence Please review medication list with patient prior to discharge Please schedule follow-up with PCP/Providers prior to discharge and provide printouts Portions of this chart may have been created with [employer] voice recognition software. Occasional wrong-word or ?sound-like? substitutions may have occurred due to the inherent limitations of voice recognition software. Please read the chart carefully and recognize, using context, where the substitutions have occurred. CC- PCP Prescriptions: Pantoprazole [Protonix] 40 mg PO BIDAC #60 tab predniSONE [Prednisone] 40 mg PO QAC #10 tab - Follow up Plan Follow up with: Steven Pineda MD [Primary Care Provider] - Disposition: [facility] Prognosis: Fair Rehab Potential: Fair I certify that the patient requires SNF services: Yes Overall status at discharge: patient is back to baseline Medical - DS: Qual - VTE Deep Vein Thrombosis/Pulmonary Embolism Present on Admission: No
[2018-04-29] MEDS ORDERED: LEVALBUTEROL 0.63 MG/3 ML AMPUL.NEB NEB SCH ×2 (13:00)
== END 2018-04-29 13:20 | DRG 871 ==
LOC: ED 11:43 → ICU 15:07 → MEDSUR 04-28 16:10
PROVIDERS: ADMIT Internal Medicine; ATTEND Internal Medicine